=== PATIENT | male | born 1965 | race African-American/Black ===

== ENCOUNTER 2018-04-26 11:31 | Inpatient (IN) | payer OTHER ==
[2018-04-26 11:55] VITALS: BMI 32.8
--- NOTE | 2018-04-26 15:23 | HP ---
CIWA Score Nausea/Vomitin Muscle Tremors: 3 Anxiety: 3 Agitation: 3 Paroxysmal Sweats: 2 Orientation: 0-Oriented Tacttile Disturbances: 0-None Auditory Disturbances: 0-None Visual Disturbances: 0-None Headache: 0-None Present CIWA-Ar Total Score: 13 - Admission Criteria OASAS Guidelines: Admission for Medically Managed Detox: Requires at least one of the followin. CIWA greater than 12 2. Seizures within the past 24 hours 3. Delirium tremens within the past 24 hours 4. Hallucinations within the past 24 hours 5. Acute intervention needed for co occurring medical disorder 6. Acute intervention needed for co occurring psychiatric disorder 7. Severe withdrawal that cannot be handled at a lower level of care (continued vomiting, continued diarrhea, abnormal vital signs) requiring intravenous medication and/or fluids 8. Patient presents the following: CIWA greater than 12 Admission Criteria Met: Admission criteria met Admission [facility] Chief Complaint: "here for detox from alcohol and cocaine" 52 yo with DM and glaucoma, last in detox in [place] 02/2018, went to Rehab for 28 days, left rehab end of Feb. Since discharge has been drinking since then. Alcohol- 6 24oz cans of beer/day, a pint of liquor, last drink this morning, no seizures and DT's Cocaine: $100/day, inhaling THC occ use Lives in long term in [place]. PCP- in [place]. DUR- benzo used for detox last month Utox: THC, cocaine Allergies/Adverse Reactions: Allergies Allergy/AdvReac Type Severity Reaction Status Date / Time No Known Allergies Allergy Verified 04/26/18 14:00 - Ebola screening Have you traveled outside of the country in the last 21 days: No Have you had contact with anyone from an Ebola affected area: No Have you been sick,other than usual withdrawal symptoms: No Do you have a fever: No Patient History - Patient Medical History Hx Anemia: No Hx Asthma: No Hx Chronic Obstructive Pulmonary Disease (COPD): No Hx Cancer: No Hx Cardiac Disorders: No Hx Congestive Heart Failure: No Hx Hypertension: No Hx Hypercholesterolemia: No Hx Pacemaker: No HX Cerebrovascular Accident: No Hx Seizures: No Hx Dementia: No Hx Diabetes: Yes (Type II) Hx Gastrointestinal Disorders: No Hx Liver Disease: No Hx Genitourinary Disorders: No Hx Sexually Transmitted Disorders: No Hx Renal Disease (ESRD): No Hx Thyroid Disease: No Hx Human Immunodeficiency Virus (HIV): No Hx Hepatitis C: No Hx Depression: Yes Hx Suicide Attempt: No Hx Bipolar Disorder: Yes (on abilify 10mg qd) Hx Schizophrenia: No - Patient Surgical History Past Surgical History: Yes Hx Neurologic Surgery: No Hx Cataract Extraction: No Hx Cardiac Surgery: No Hx Lung Surgery: No Hx Breast Surgery: No Hx Breast Biopsy: No Hx Abdominal Surgery: No Hx Appendectomy: No Hx Cholecystectomy: No Hx Genitourinary Surgery: No Hx Section: No Hx Orthopedic Surgery: Yes (R ANKLE-1995, R foot 1994) Anesthesia Reaction: No - PPD History Previous Implant?: Yes Documented Results: Negative w/o proof Implanted On Prior R Admission?: No Date: 06/26/12 - Smoking Cessation Smoking history: Current every day smoker Have you smoked in the past 12 months: Yes Aproximately how many cigarettes per day: 10 Hx Chewing Tobacco Use: No Initiated information on smoking cessation: Yes 'Breaking Loose' booklet given: 04/26/18 - Substance & Tx. History Hx Alcohol Use: Yes Hx Substance Use: Yes Substance Use Type: Cocaine, Marijuana Hx Substance Use Treatment: Yes - Substances Abused Alcohol Route: Oral Frequency: Daily Amount used: 6 20 OZ BEERS Age of first use: 14 Date of Last Use: 04/26/18 Cocaine Route: Inhalation Frequency: Daily Amount used: $50 Age of first use: 19 Date of Last Use: 04/26/18 Marijuana/Hashish Route: Smoking Frequency: 1-3 times last 30 days Amount used: 1 JOINT Age of first use: 19 Date of Last Use: 04/19/18 Family Disease History - Family Disease History Family Disease History: Diabetes: Father, Mother, Heart Disease: Father Admission Physical Exam BHS - Vital Signs Vital Signs: Vital Signs - 24 hr 04/26/18 11:53 Temperature 98.5 F Pulse Rate 90 Respiratory 18 Rate Blood Pressure 137/82 - Physical General Appearance: Yes: Within Normal Limits HEENTM: Yes: Within Normal Limits Respiratory: Yes: Within Normal Limits Neck: Yes: Within Normal Limits Cardiology: Yes: Within Normal Limits, Regular Rhythm, Regular Rate, S1, S2, Murmur, Systolic Murmur Abdominal: Yes: Within Normal Limits Genitourinary: Yes: Within Normal Limits Back: Yes: Within Normal Limits Musculoskeletal: Yes: Within Normal Limits Extremities: Yes: Within Normal Limits Neurological: Yes: Within Normal Limits Integumentary: Yes: Within Normal Limits Lymphatic: Yes: Within Normal Limits - Diagnostic (1) Cannabis use disorder, mild, abuse Current Visit: Yes Status: Acute (2) Alcohol dependence Current Visit: No Status: Active (3) Cocaine dependence Current Visit: No Status: Active (4) DM Diabetes mellitus type 2 Current Visit: No Status: Active (5) Bipolar 1 disorder Current Visit: Yes Status: Acute BHS Breath Alcohol Content Breath Alcohol Content: 0 Urine Drug Screen - Results Drug Screen Negative: No Urine Drug Screen Results: THC-Marijuana, AB-Cocaine
[2018-04-26] MEDS ORDERED: LOPERAMIDE HCL 2 MG CAPSULE PO PRN (15:28)
[2018-04-26] MEDS ORDERED: P-EPHED 60MG/TRIPROLIDI 2.5MG TABLET PO PRN (15:28)
[2018-04-26] MEDS ORDERED: MAGNESIUM CITRATE 300 ML BOTTLE PO PRN (15:28)
[2018-04-26] MEDS ORDERED: MAG HYDROX/AL HYDROX/SIMETH 30 ML UNIT-DOSE CUP PO PRN (15:28)
[2018-04-26] MEDS ORDERED: IBUPROFEN 400 MG TABLET (FP) PO PRN (15:28)
[2018-04-26] MEDS ORDERED: MAGNESIUM HYDROX 2400MG/30ML ORAL SUSPENSION 30 ML CUP PO PRN (15:28)
[2018-04-26] MEDS ORDERED: MENTHOL/PHENOL 1 EACH UD MM PRN (15:28)
[2018-04-26] MEDS ORDERED: guaiFENesin/D-METHORPHAN HB 10 ML UNIT-DOSE CUPS PO PRN (15:28)
[2018-04-26] MEDS ORDERED: chlordiazePOXIDE HCL 25 MG CAPSULE PO PRN (15:30)
[2018-04-26] MEDS: metFORMIN HCL 500 MG TABLET (FP) PO SCH (17:01)
[2018-04-26] MEDS: chlordiazePOXIDE 5 MG CAPSULE PO SCH ×2 (17:01→22:12)
[2018-04-26] MEDS: TIMOLOL 0.5% OPHTHALMIC SOL 5 ML BOTTLE OD SCH (17:41)
[2018-04-26] MEDS: MELATONIN 5 MG TABLETS PO PRN (22:12)
[2018-04-26] MEDS: THIAMINE HCL 100 MG TABLET (FP) PO SCH (22:12)
[2018-04-26] MEDS: LATANOPROST 0.005% OPHTH SOLN 2.5ML BOTTLE OU SCH (22:13)
[2018-04-27] MEDS: chlordiazePOXIDE 5 MG CAPSULE PO SCH ×4 (05:33→22:13)
[2018-04-27] MEDS: metFORMIN HCL 500 MG TABLET (FP) PO SCH ×2 (06:26→17:01)
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
[2018-04-27] MEDS: PRENATAL VITAMINS W/ FOLIC ACID TABLET (FP) PO SCH (10:03)
[2018-04-27] MEDS: TIMOLOL 0.5% OPHTHALMIC SOL 5 ML BOTTLE OD SCH (10:03)
[2018-04-27 10:58] LABS: HEMATOCRIT 40.1 % (35.4-49); HEMOGLOBIN 13.8 GM/dL (11.7-16.9); MCH 30.6 pg (25.7-33.7); MCHC 34.4 g/dl (32.0-35.9); MEAN CELL VOLUME 89.1 fl (80-96); MEAN PLT VOLUME 9.3 fl (7.5-11.1); PLATELET COUNT 255 K/MM3 (134-434); RDW 13.4 % (11.9-15.9); WHITE BLOOD COUNT 4.4 K/mm3 (4.0-10.0)
[2018-04-27 11:16] LABS: ALK PHOS 108 U/L (45-117); ANION GAP 12 MMOL/L (8-16); BILIRUBIN,TOTAL 0.4 mg/dL (0.2-1); BLOOD UREA NITROGEN 8 mg/dL (7-18); CALCIUM 9.6 mg/dL (8.5-10.1); CHLORIDE 102 mmol/L (98-107); CO2 24 mmol/L (21-32); GLUCOSE,RANDOM 259 mg/dL (74-106); POTASSIUM 3.5 mmol/L (3.5-5.1); SGOT/AST 8 U/L (15-37); SGPT/ALT 15 U/L (13-61); SODIUM 139 mmol/L (136-145); TOT PROT 7.3 g/dl (6.4-8.2)
--- NOTE | 2018-04-27 11:16 | PN ---
S CIWA - CIWA Score Nausea/Vomitin-Mild Nausea/No Vomiting Muscle Tremors: 3 Anxiety: 3 Agitation: 4-Moderately Restless Paroxysmal Sweats: 1-Minimal Palms Moist Orientation: 1-Uncertain about Date Tacttile Disturbances: 0-None Auditory Disturbances: 0-None Visual Disturbances: 0-None Headache: 2-Mild CIWA-Ar Total Score: 15 BHS Progress Note (SOAP) Subjective: tremor restlessness anxiety sweating Objective: 04/27/18 11:15 Vital Signs Temperature 97.1 F L 04/27/18 09:09 Pulse Rate 84 04/27/18 09:09 Respiratory Rate 18 04/27/18 09:09 Blood Pressure 128/87 04/27/18 09:09 O2 Sat by Pulse Oximetry (%) Laboratory Last Values WBC 4.4 K/mm3 (4.0-10.0) 04/27/18 05:45 RBC 4.50 M/mm3 (4.00-5.60) 04/27/18 05:45 Hgb 13.8 GM/dL (11.7-16.9) 04/27/18 05:45 Hct 40.1 % (35.4-49) 04/27/18 05:45 MCV 89.1 fl (80-96) 04/27/18 05:45 MCH 30.6 pg (25.7-33.7) 04/27/18 05:45 MCHC 34.4 g/dl (32.0-35.9) 04/27/18 05:45 RDW 13.4 % (11.9-15.9) 04/27/18 05:45 Plt Count 255 K/MM3 (134-434) 04/27/18 05:45 MPV 9.3 fl (7.5-11.1) 04/27/18 05:45 POC Glucometer 195 UNITS (80-120) 04/27/18 05:32 lab noted Assessment: 04/27/18 11:16 withdrawal sx Plan: continue detox
[2018-04-27 12:27] LABS: URINE APPEARANCE SLCLOUDY; URINE BILIRUBIN NEGATIVE (<2.0 mg/dL); URINE COLOR YELLOW; URINE GLUCOSE (UA) 2+ (NEGATIVE); URINE KETONE NEGATIVE (NEGATIVE); URINE LEUK ESTERASE NEGATIVE (NEGATIVE); URINE NITRITE NEGATIVE (NEGATIVE); URINE PROTEIN 1+ (NEGATIVE); URINE UROBILINOGEN NEGATIVE mg/dL (0.2-1.0)
[2018-04-27 12:34] LABS: EPI CELLS RARE /HPF (FEW); URINE MUCUS RARE
[2018-04-27] MEDS: traZODone HCL 100 MG TABLET (FP) PO SCH (22:13)
[2018-04-27] MEDS: THIAMINE HCL 100 MG TABLET (FP) PO SCH (22:13)
[2018-04-27] MEDS: LATANOPROST 0.005% OPHTH SOLN 2.5ML BOTTLE OU SCH (22:13)
[2018-04-28] MEDS: chlordiazePOXIDE 5 MG CAPSULE PO SCH ×4 (05:25→22:04)
[2018-04-28] MEDS: metFORMIN HCL 500 MG TABLET (FP) PO SCH ×2 (07:58→16:59)
--- NOTE | 2018-04-28 09:41 | PN ---
S CIWA - CIWA Score Nausea/Vomitin-Mild Nausea/No Vomiting Muscle Tremors: 3 Anxiety: 3 Agitation: 2 Paroxysmal Sweats: 1-Minimal Palms Moist Orientation: 0-Oriented Tacttile Disturbances: 0-None Auditory Disturbances: 0-None Visual Disturbances: 0-None Headache: 2-Mild CIWA-Ar Total Score: 12 BHS Progress Note (SOAP) Subjective: tremor sweating otherwise doing ok Objective: 04/28/18 09:41 Vital Signs Temperature 97.9 F 04/28/18 09:25 Pulse Rate 88 04/28/18 09:25 Respiratory Rate 18 04/28/18 09:25 Blood Pressure 118/73 04/28/18 09:25 O2 Sat by Pulse Oximetry (%) Laboratory Last Values WBC 4.4 K/mm3 (4.0-10.0) 04/27/18 05:45 RBC 4.50 M/mm3 (4.00-5.60) 04/27/18 05:45 Hgb 13.8 GM/dL (11.7-16.9) 04/27/18 05:45 Hct 40.1 % (35.4-49) 04/27/18 05:45 MCV 89.1 fl (80-96) 04/27/18 05:45 MCH 30.6 pg (25.7-33.7) 04/27/18 05:45 MCHC 34.4 g/dl (32.0-35.9) 04/27/18 05:45 RDW 13.4 % (11.9-15.9) 04/27/18 05:45 Plt Count 255 K/MM3 (134-434) 04/27/18 05:45 MPV 9.3 fl (7.5-11.1) 04/27/18 05:45 Sodium 139 mmol/L (136-145) 04/27/18 05:45 Potassium 3.5 mmol/L (3.5-5.1) 04/27/18 05:45 Chloride 102 mmol/L (98-107) 04/27/18 05:45 Carbon Dioxide 24 mmol/L (21-32) 04/27/18 05:45 Anion Gap 12 MMOL/L (8-16) 04/27/18 05:45 BUN 8 mg/dL (7-18) 04/27/18 05:45 Creatinine 1.0 mg/dL (0.55-1.3) 04/27/18 05:45 Creat Clearance w eGFR > 60 (>60) 04/27/18 05:45 POC Glucometer 166 UNITS (80-120) 04/28/18 05:25 Random Glucose 259 mg/dL (74-106) H 04/27/18 05:45 Calcium 9.6 mg/dL (8.5-10.1) 04/27/18 05:45 Total Bilirubin 0.4 mg/dL (0.2-1) 04/27/18 05:45 AST 8 U/L (15-37) L 04/27/18 05:45 ALT 15 U/L (13-61) 04/27/18 05:45 Alkaline Phosphatase 108 U/L (45-117) 04/27/18 05:45 Total Protein 7.3 g/dl (6.4-8.2) 04/27/18 05:45 Albumin 4.0 g/dl (3.4-5.0) 04/27/18 05:45 Urine Color Yellow 04/27/18 08:00 Urine Appearance Slcloudy 04/27/18 08:00 Urine pH 5.0 (5.0-8.0) 04/27/18 08:00 Ur Specific [place] 1.019 (1.010-1.035) 04/27/18 08:00 Urine Protein 1+ (NEGATIVE) H 04/27/18 08:00 Urine Glucose (UA) 2+ (NEGATIVE) H 04/27/18 08:00 Urine Ketones Negative (NEGATIVE) 04/27/18 08:00 Urine Blood Negative (NEGATIVE) 04/27/18 08:00 Urine Nitrite Negative (NEGATIVE) 04/27/18 08:00 Urine Bilirubin Negative (<2.0 mg/dL) 04/27/18 08:00 Urine Urobilinogen Negative mg/dL (0.2-1.0) 04/27/18 08:00 Ur Leukocyte Esterase Negative (NEGATIVE) 04/27/18 08:00 Urine WBC (Auto) 2 /hpf (3-5) 04/27/18 08:00 Urine RBC (Auto) 1 /hpf (0-3) 04/27/18 08:00 Ur Epithelial Cells Rare /HPF (FEW) 04/27/18 08:00 Urine Mucus Rare 04/27/18 08:00 RPR Titer Nonreactive (NONREACTIVE) 04/27/18 05:45 lab noted Assessment: 04/28/18 09:41 withdrawal sx Plan: continue detox
[2018-04-28] MEDS: PRENATAL VITAMINS W/ FOLIC ACID TABLET (FP) PO SCH (10:16)
[2018-04-28] MEDS: TIMOLOL 0.5% OPHTHALMIC SOL 5 ML BOTTLE OD SCH (10:16)
[2018-04-28] MEDS: LATANOPROST 0.005% OPHTH SOLN 2.5ML BOTTLE OU SCH (22:04)
[2018-04-28] MEDS: traZODone HCL 100 MG TABLET (FP) PO SCH (22:04)
[2018-04-28] MEDS: THIAMINE HCL 100 MG TABLET (FP) PO SCH (22:04)
[2018-04-29] MEDS: chlordiazePOXIDE 5 MG CAPSULE PO SCH ×4 (05:48→22:06)
[2018-04-29] MEDS: metFORMIN HCL 500 MG TABLET (FP) PO SCH ×2 (06:24→17:35)
--- NOTE | 2018-04-29 10:07 | PN ---
BHS Progress Note (SOAP) Subjective: feeling better less sweating mild tremor sleep better at night Objective: 04/29/18 10:06 Vital Signs Temperature 98.2 F 04/29/18 09:16 Pulse Rate 91 H 04/29/18 09:16 Respiratory Rate 20 04/29/18 09:16 Blood Pressure 100/60 04/29/18 09:16 O2 Sat by Pulse Oximetry (%) Laboratory Last Values WBC 4.4 K/mm3 (4.0-10.0) 04/27/18 05:45 RBC 4.50 M/mm3 (4.00-5.60) 04/27/18 05:45 Hgb 13.8 GM/dL (11.7-16.9) 04/27/18 05:45 Hct 40.1 % (35.4-49) 04/27/18 05:45 MCV 89.1 fl (80-96) 04/27/18 05:45 MCH 30.6 pg (25.7-33.7) 04/27/18 05:45 MCHC 34.4 g/dl (32.0-35.9) 04/27/18 05:45 RDW 13.4 % (11.9-15.9) 04/27/18 05:45 Plt Count 255 K/MM3 (134-434) 04/27/18 05:45 MPV 9.3 fl (7.5-11.1) 04/27/18 05:45 Sodium 139 mmol/L (136-145) 04/27/18 05:45 Potassium 3.5 mmol/L (3.5-5.1) 04/27/18 05:45 Chloride 102 mmol/L (98-107) 04/27/18 05:45 Carbon Dioxide 24 mmol/L (21-32) 04/27/18 05:45 Anion Gap 12 MMOL/L (8-16) 04/27/18 05:45 BUN 8 mg/dL (7-18) 04/27/18 05:45 Creatinine 1.0 mg/dL (0.55-1.3) 04/27/18 05:45 Creat Clearance w eGFR > 60 (>60) 04/27/18 05:45 POC Glucometer 249 UNITS (80-120) 04/29/18 05:47 Random Glucose 259 mg/dL (74-106) H 04/27/18 05:45 Calcium 9.6 mg/dL (8.5-10.1) 04/27/18 05:45 Total Bilirubin 0.4 mg/dL (0.2-1) 04/27/18 05:45 AST 8 U/L (15-37) L 04/27/18 05:45 ALT 15 U/L (13-61) 04/27/18 05:45 Alkaline Phosphatase 108 U/L (45-117) 04/27/18 05:45 Total Protein 7.3 g/dl (6.4-8.2) 04/27/18 05:45 Albumin 4.0 g/dl (3.4-5.0) 04/27/18 05:45 Urine Color Yellow 04/27/18 08:00 Urine Appearance Slcloudy 04/27/18 08:00 Urine pH 5.0 (5.0-8.0) 04/27/18 08:00 Ur Specific [place] 1.019 (1.010-1.035) 04/27/18 08:00 Urine Protein 1+ (NEGATIVE) H 04/27/18 08:00 Urine Glucose (UA) 2+ (NEGATIVE) H 04/27/18 08:00 Urine Ketones Negative (NEGATIVE) 04/27/18 08:00 Urine Blood Negative (NEGATIVE) 04/27/18 08:00 Urine Nitrite Negative (NEGATIVE) 04/27/18 08:00 Urine Bilirubin Negative (<2.0 mg/dL) 04/27/18 08:00 Urine Urobilinogen Negative mg/dL (0.2-1.0) 04/27/18 08:00 Ur Leukocyte Esterase Negative (NEGATIVE) 04/27/18 08:00 Urine WBC (Auto) 2 /hpf (3-5) 04/27/18 08:00 Urine RBC (Auto) 1 /hpf (0-3) 04/27/18 08:00 Ur Epithelial Cells Rare /HPF (FEW) 04/27/18 08:00 Urine Mucus Rare 04/27/18 08:00 RPR Titer Nonreactive (NONREACTIVE) 04/27/18 05:45 lab noted Assessment: 04/29/18 10:06 mild withdrawal sx 04/29/18 10:06 glaucoma 04/29/18 10:07 Plan: continue detox
[2018-04-29] MEDS: TIMOLOL 0.5% OPHTHALMIC SOL 5 ML BOTTLE OD SCH (10:21)
[2018-04-29] MEDS: PRENATAL VITAMINS W/ FOLIC ACID TABLET (FP) PO SCH (10:21)
[2018-04-29] MEDS: THIAMINE HCL 100 MG TABLET (FP) PO SCH (22:06)
[2018-04-29] MEDS: LATANOPROST 0.005% OPHTH SOLN 2.5ML BOTTLE OU SCH (22:06)
[2018-04-29] MEDS: traZODone HCL 100 MG TABLET (FP) PO SCH (22:06)
[2018-04-30] MEDS: chlordiazePOXIDE 5 MG CAPSULE PO SCH ×2 (05:19→10:06)
[2018-04-30] MEDS: metFORMIN HCL 500 MG TABLET (FP) PO SCH ×2 (08:03→17:01)
--- NOTE | 2018-04-30 09:55 | PN ---
BHS Progress Note (SOAP) Subjective: I feel better Objective: 04/30/18 09:53 Vital Signs Temperature 98.3 F 04/30/18 09:17 Pulse Rate 80 04/30/18 09:17 Respiratory Rate 18 04/30/18 09:17 Blood Pressure 108/68 04/30/18 09:17 O2 Sat by Pulse Oximetry (%) Laboratory Tests 04/26/18 04/27/18 04/27/18 16:49 05:32 05:45 WBC 4.4 RBC 4.50 Hgb 13.8 Hct 40.1 MCV 89.1 MCH 30.6 MCHC 34.4 RDW 13.4 Plt Count 255 MPV 9.3 Sodium Potassium Chloride Carbon Dioxide Anion Gap BUN Creatinine Creat Clearance w eGFR POC Glucometer 290 195 Random Glucose Calcium Total Bilirubin AST ALT Alkaline Phosphatase Total Protein Albumin Urine Color Urine Appearance Urine pH Ur Specific [place] Urine Protein Urine Glucose (UA) Urine Ketones Urine Blood Urine Nitrite Urine Bilirubin Urine Urobilinogen Ur Leukocyte Esterase Urine WBC (Auto) Urine RBC (Auto) Ur Epithelial Cells Urine Mucus RPR Titer 04/27/18 04/27/18 04/27/18 05:45 05:45 08:00 WBC RBC Hgb Hct MCV MCH MCHC RDW Plt Count MPV Sodium 139 Potassium 3.5 Chloride 102 Carbon Dioxide 24 Anion Gap 12 BUN 8 Creatinine 1.0 Creat Clearance w eGFR > 60 POC Glucometer Random Glucose 259 H Calcium 9.6 Total Bilirubin 0.4 AST 8 L ALT 15 Alkaline Phosphatase 108 Total Protein 7.3 Albumin 4.0 Urine Color Yellow Urine Appearance Slcloudy Urine pH 5.0 Ur Specific [place] 1.019 Urine Protein 1+ H Urine Glucose (UA) 2+ H Urine Ketones Negative Urine Blood Negative Urine Nitrite Negative Urine Bilirubin Negative Urine Urobilinogen Negative Ur Leukocyte Esterase Negative Urine WBC (Auto) 2 Urine RBC (Auto) 1 Ur Epithelial Cells Rare Urine Mucus Rare RPR Titer Nonreactive 04/27/18 04/28/18 04/28/18 16:30 05:25 16:19 WBC RBC Hgb Hct MCV MCH MCHC RDW Plt Count MPV Sodium Potassium Chloride Carbon Dioxide Anion Gap BUN Creatinine Creat Clearance w eGFR POC Glucometer 230 166 237 Random Glucose Calcium Total Bilirubin AST ALT Alkaline Phosphatase Total Protein Albumin Urine Color Urine Appearance Urine pH Ur Specific [place] Urine Protein Urine Glucose (UA) Urine Ketones Urine Blood Urine Nitrite Urine Bilirubin Urine Urobilinogen Ur Leukocyte Esterase Urine WBC (Auto) Urine RBC (Auto) Ur Epithelial Cells Urine Mucus RPR Titer 04/29/18 04/29/18 04/30/18 05:47 16:30 05:19 WBC RBC Hgb Hct MCV MCH MCHC RDW Plt Count MPV Sodium Potassium Chloride Carbon Dioxide Anion Gap BUN Creatinine Creat Clearance w eGFR POC Glucometer 249 205 142 Random Glucose Calcium Total Bilirubin AST ALT Alkaline Phosphatase Total Protein Albumin Urine Color Urine Appearance Urine pH Ur Specific [place] Urine Protein Urine Glucose (UA) Urine Ketones Urine Blood Urine Nitrite Urine Bilirubin Urine Urobilinogen Ur Leukocyte Esterase Urine WBC (Auto) Urine RBC (Auto) Ur Epithelial Cells Urine Mucus RPR Titer pt aox3 in nad Assessment: 04/30/18 09:54 detox completed Plan: d/c to rehab
--- NOTE | 2018-04-30 10:00 | DS ---
[facility] Detox Discharge Summary Admission Date: 04/26/18 - Physical Exam Results Vital Signs: Vital Signs Temperature 98.3 F 04/30/18 09:17 Pulse Rate 80 04/30/18 09:17 Respiratory Rate 18 04/30/18 09:17 Blood Pressure 108/68 04/30/18 09:17 O2 Sat by Pulse Oximetry (%) - Medication Discharge Medications: Ambulatory Orders Latanoprost 0.005% Eye Drops [Xalatan 0.005% Eye Drops -] 1 drop OU HS #1 drops 04/29/18 Metformin HCl [Glucophage] 500 mg PO BID #30 tablet 04/29/18 Timolol 0.5% [Timoptic 0.5%] 1 drop OD DAILY #1 drops 04/29/18 - Diagnosis (1) Alcohol dependence with uncomplicated withdrawal Current Visit: Yes Status: Chronic (2) Bipolar 1 disorder Current Visit: Yes Status: Chronic (3) Cannabis use disorder, mild, abuse Current Visit: Yes Status: Chronic (4) Glaucoma Current Visit: Yes Status: Chronic (5) Nicotine dependence Current Visit: Yes Status: Chronic (6) Alcohol dependence Current Visit: Yes Status: Chronic (7) Cocaine dependence Current Visit: No Status: Chronic
--- NOTE | 2018-04-30 10:03 | HP ---
[facility] Rehab Assess/Revision - Admission History Admitted to Rehab from: [facility] Date of Admission to Rehab: 04/30/2018 - Vital signs Vital Signs: Vital Signs Period Temp Pulse Resp BP Sys/Godinez Pulse Ox Last 24 Hr 97.4 F-98.9 F 78-89 18-18 108-125/68-85 - Findings Detox History & Physical reviewed: Yes Concur with findings: Yes
--- NOTE | 2018-04-30 10:04 | HP ---
[facility] Rehab Assess/Revision - Vital signs Vital Signs: Vital Signs Period Temp Pulse Resp BP Sys/Godinez Pulse Ox Last 24 Hr 97.4 F-98.9 F 78-89 18-18 108-125/68-85 Inpatient Rehab Admission - Initial Determination Are CD services needed?: No Free of communicable disease: Yes Not in need of hospitalization: Yes - Rehab Admission Criteria Previous failed treatment: Yes Poor recovery environment: Yes Comorbidities: Yes Lacks judgement: No Patient is meeting Inpatient Rehab admission criteria:: No
[2018-04-30] MEDS: TIMOLOL 0.5% OPHTHALMIC SOL 5 ML BOTTLE OD SCH (10:06)
[2018-04-30] MEDS: ACETAMINOPHEN 325 MG TABLET (FP) PO PRN (10:06)
[2018-04-30] MEDS: PRENATAL VITAMINS W/ FOLIC ACID TABLET (FP) PO SCH (10:06)
[2018-04-30] MEDS: traZODone HCL 100 MG TABLET (FP) PO SCH (21:49)
[2018-04-30] MEDS: THIAMINE HCL 100 MG TABLET (FP) PO SCH (21:49)
[2018-04-30] MEDS: LATANOPROST 0.005% OPHTH SOLN 2.5ML BOTTLE OU SCH (21:50)
[2018-05-01] MEDS: metFORMIN HCL 500 MG TABLET (FP) PO SCH ×2 (06:33→16:48)
[2018-05-01] MEDS: PRENATAL VITAMINS W/ FOLIC ACID TABLET (FP) PO SCH (10:22)
[2018-05-01] MEDS: TIMOLOL 0.5% OPHTHALMIC SOL 5 ML BOTTLE OD SCH (10:22)
[2018-05-01] MEDS ORDERED: INSULIN (NOVOLOG) ASPART 100 UNITS/ML 10ML VIAL ONE (16:33)
[2018-05-01] MEDS: traZODone HCL 100 MG TABLET (FP) PO SCH (21:50)
[2018-05-01] MEDS: THIAMINE HCL 100 MG TABLET (FP) PO SCH (21:50)
[2018-05-01] MEDS: LATANOPROST 0.005% OPHTH SOLN 2.5ML BOTTLE OU SCH (21:50)
[2018-05-02] MEDS: metFORMIN HCL 500 MG TABLET (FP) PO SCH ×2 (07:07→16:51)
[2018-05-02] MEDS: PRENATAL VITAMINS W/ FOLIC ACID TABLET (FP) PO SCH (10:08)
[2018-05-02] MEDS: TIMOLOL 0.5% OPHTHALMIC SOL 5 ML BOTTLE OD SCH (10:09)
[2018-05-02] MEDS: traZODone HCL 100 MG TABLET (FP) PO SCH (21:37)
[2018-05-02] MEDS: THIAMINE HCL 100 MG TABLET (FP) PO SCH (21:37)
[2018-05-02] MEDS: LATANOPROST 0.005% OPHTH SOLN 2.5ML BOTTLE OU SCH (21:38)
[2018-05-03] MEDS: metFORMIN HCL 500 MG TABLET (FP) PO SCH ×2 (06:28→16:51)
[2018-05-03] MEDS: PRENATAL VITAMINS W/ FOLIC ACID TABLET (FP) PO SCH (09:56)
[2018-05-03] MEDS: TIMOLOL 0.5% OPHTHALMIC SOL 5 ML BOTTLE OD SCH (09:57)
--- NOTE | 2018-05-03 11:03 | PN ---
[facility] Progress Note Note: PATIENT REPORTS TAKING METFORMIN 1000MG BID. PATIENT CURRENTLY RECEIVING 500MG BID. PREFERRED PHARMACY CALLED AT [phone] AND STATES PATIENT DOES HAVE RECORD OF 1000MG BID BUT PATIENT HAS NOT FILLED MEDICATION IN OVER ONE YEAR. BLOOD SUGAR RANGE 142-270. WILL CHECK BMP TO ASSESS RENAL FUNCTION AGAIN PRIOR TO INCREASING MEDICATION. Vital Signs Temperature 98.3 F 05/03/18 07:02 Pulse Rate 89 05/03/18 07:02 Respiratory Rate 05/03/18 07:02 Blood Pressure 114/71 05/03/18 07:02 O2 Sat by Pulse Oximetry (%) Laboratory Tests 04/26/18 04/27/18 04/27/18 16:49 05:32 05:45 WBC 4.4 RBC 4.50 Hgb 13.8 Hct 40.1 MCV 89.1 MCH 30.6 MCHC 34.4 RDW 13.4 Plt Count 255 MPV 9.3 Sodium Potassium Chloride Carbon Dioxide Anion Gap BUN Creatinine Creat Clearance w eGFR POC Glucometer 290 195 Random Glucose Calcium Total Bilirubin AST ALT Alkaline Phosphatase Total Protein Albumin Urine Color Urine Appearance Urine pH Ur Specific [place] Urine Protein Urine Glucose (UA) Urine Ketones Urine Blood Urine Nitrite Urine Bilirubin Urine Urobilinogen Ur Leukocyte Esterase Urine WBC (Auto) Urine RBC (Auto) Ur Epithelial Cells Urine Mucus RPR Titer 04/27/18 04/27/18 04/27/18 05:45 05:45 08:00 WBC RBC Hgb Hct MCV MCH MCHC RDW Plt Count MPV Sodium 139 Potassium 3.5 Chloride 102 Carbon Dioxide 24 Anion Gap 12 BUN 8 Creatinine 1.0 Creat Clearance w eGFR > 60 POC Glucometer Random Glucose 259 H Calcium 9.6 Total Bilirubin 0.4 AST 8 L ALT 15 Alkaline Phosphatase 108 Total Protein 7.3 Albumin 4.0 Urine Color Yellow Urine Appearance Slcloudy Urine pH 5.0 Ur Specific [place] 1.019 Urine Protein 1+ H Urine Glucose (UA) 2+ H Urine Ketones Negative Urine Blood Negative Urine Nitrite Negative Urine Bilirubin Negative Urine Urobilinogen Negative Ur Leukocyte Esterase Negative Urine WBC (Auto) 2 Urine RBC (Auto) 1 Ur Epithelial Cells Rare Urine Mucus Rare RPR Titer Nonreactive 04/27/18 04/28/18 04/28/18 16:30 05:25 16:19 WBC RBC Hgb Hct MCV MCH MCHC RDW Plt Count MPV Sodium Potassium Chloride Carbon Dioxide Anion Gap BUN Creatinine Creat Clearance w eGFR POC Glucometer 230 166 237 Random Glucose Calcium Total Bilirubin AST ALT Alkaline Phosphatase Total Protein Albumin Urine Color Urine Appearance Urine pH Ur Specific [place] Urine Protein Urine Glucose (UA) Urine Ketones Urine Blood Urine Nitrite Urine Bilirubin Urine Urobilinogen Ur Leukocyte Esterase Urine WBC (Auto) Urine RBC (Auto) Ur Epithelial Cells Urine Mucus RPR Titer 04/29/18 04/29/18 04/30/18 05:47 16:30 05:19 WBC RBC Hgb Hct MCV MCH MCHC RDW Plt Count MPV Sodium Potassium Chloride Carbon Dioxide Anion Gap BUN Creatinine Creat Clearance w eGFR POC Glucometer 249 205 142 Random Glucose Calcium Total Bilirubin AST ALT Alkaline Phosphatase Total Protein Albumin Urine Color Urine Appearance Urine pH Ur Specific [place] Urine Protein Urine Glucose (UA) Urine Ketones Urine Blood Urine Nitrite Urine Bilirubin Urine Urobilinogen Ur Leukocyte Esterase Urine WBC (Auto) Urine RBC (Auto) Ur Epithelial Cells Urine Mucus RPR Titer 04/30/18 05/01/18 05/01/18 17:00 05:51 16:47 WBC RBC Hgb Hct MCV MCH MCHC RDW Plt Count MPV Sodium Potassium Chloride Carbon Dioxide Anion Gap BUN Creatinine Creat Clearance w eGFR POC Glucometer 169 208 248 Random Glucose Calcium Total Bilirubin AST ALT Alkaline Phosphatase Total Protein Albumin Urine Color Urine Appearance Urine pH Ur Specific [place] Urine Protein Urine Glucose (UA) Urine Ketones Urine Blood Urine Nitrite Urine Bilirubin Urine Urobilinogen Ur Leukocyte Esterase Urine WBC (Auto) Urine RBC (Auto) Ur Epithelial Cells Urine Mucus RPR Titer 05/02/18 05/02/18 05/03/18 05:57 16:50 06:28 WBC RBC Hgb Hct MCV MCH MCHC RDW Plt Count MPV Sodium Potassium Chloride Carbon Dioxide Anion Gap BUN Creatinine Creat Clearance w eGFR POC Glucometer 162 215 270 Random Glucose Calcium Total Bilirubin AST ALT Alkaline Phosphatase Total Protein Albumin Urine Color Urine Appearance Urine pH Ur Specific [place] Urine Protein Urine Glucose (UA) Urine Ketones Urine Blood Urine Nitrite Urine Bilirubin Urine Urobilinogen Ur Leukocyte Esterase Urine WBC (Auto) Urine RBC (Auto) Ur Epithelial Cells Urine Mucus RPR Titer
--- NOTE | 2018-05-03 18:13 | CONSULT ---
[facility] Psychiatric Consult - Data Date of interview: 05/03/18 Admission source: [facility] Identifying data: Second admission to [facility] for this 52 y/o AA male who completed detoxification at [address] [place] [address] and got transferred to [address] for consolidation of sobriety and management of co-morbidities (alcohol/cocaine dependence + nicotine/cannabis dependence + bipolar disorder). Patient is single , a father of one, homeless (resides in detention), unemployed and supported on [facility] benefits. Substance Abuse History: Discussed with the patient in this interview. Details in current [facility] report as follows : Smoking history: Current every day smoker. Have you smoked in the past 12 months: Yes. Aproximately how many cigarettes per day: 10. Hx Chewing Tobacco Use: No. Initiated information on smoking cessation: Yes. 'Breaking Loose' booklet given: 04/26/18. - Substance & Tx. History. Hx Alcohol Use: Yes. Hx Substance Use: Yes. Substance Use Type: Cocaine, Marijuana. Hx Substance Use Treatment: Yes. - Substances Abused. Alcohol. Route: Oral. Frequency: Daily. Amount used: 6 20 OZ BEERS. Age of first use: 14. Date of Last Use: 04/26/18. Cocaine. Route: Inhalation. Frequency: Daily. Amount used: $50. Age of first use: 19. Date of Last Use: 04/26/18. Marijuana/Hashish. Route: Smoking. Frequency: 1-3 times last 30 days. Amount used: 1 JOINT. Age of first use: 19. Date of Last Use: 04/19/18 Medical History: Diabetes mellitus, glaucoma and a history of orthosurgery ( fractures of right ankle + right foot in 1994). Psychiatric History: Patient endorses a history of multiple psychiatric hospitalizations ([facility], [facility], [facility]3] in [place], [place]). Most recent psychiatric admission occurred at [facility]3] in November 2017.Mr Gaetano Alvarado states that he has been diagnosed with Bipolar Disorder, ADHD and Anxiety Disorder. He indicates past maintenance on psychotropic medications but, with the exception of aripriprazole and trazodone , the patient has no recollection of their names. A telephone call to [facility] ([phone]) confirms past refills for adderall, percocet, lyrica, lamictal and trazodone. NO pharmacy activity for more than a year. Indeed, the patient validates the pharmacist's report that he last picked up scripts at [facility] more than 12 months ago. " I have not been there for quite a while, certainly more than a year ". Admits to chronic non-adherence to [facility]PD care + medications and history of two suicide attempts (self-mutilation and deliberate jump onto the path of an oncoming train). Physical/Sexual Abuse/Trauma History: Not discussed in this session. Patient declines. Additional Comment: Urine Drug Screen Results: THC-Marijuana, AB-Cocaine. Noted. Mental Status Exam - Mental Status Exam Alert and Oriented to: Time, Place, Person Cognitive Function: Good Patient Appearance: Well Groomed Mood: Angry (at beginning of interview but patient gradually calmed down ; cooperative after 5-10 minutes of conversation with gag writer), Irritable Affect: Appropriate, Normal Range Patient Behavior: Talkative, Appropriate (receptive to teaching ; apologetic for his initial angry outbursts), Cooperative Speech Pattern: Clear, Appropriate Voice Loudness: Normal Thought Process: Goal Oriented Thought Disorder: Not Present Hallucinations: Denies Suicidal Ideation: Denies Homicidal Ideation: Denies Insight/Judgement: Poor Sleep: Poorly, Difficulty falling asleep Appetite: Good Muscle strength/Tone: Normal Gait/Station: Normal Psychiatric Findings - Problem List (Hardy 1, 2,3) (1) Alcohol dependence Current Visit: Yes Status: Chronic (2) Cocaine dependence Current Visit: Yes Status: Chronic (3) Nicotine dependence Current Visit: Yes Status: Chronic (4) Cannabis abuse Current Visit: Yes Status: Chronic (5) Substance induced mood disorder Current Visit: Yes Status: Chronic (6) Bipolar disorder Current Visit: Yes Status: Chronic (7) Insomnia Current Visit: Yes Status: Chronic (8) Non-compliant patient Current Visit: Yes Status: Chronic - Initial Treatment Plan Initial Treatment Plan: Psychoeducation. Sleep hygiene. AA meetings. Support. Motivational sessions for abstinence. Strategies for relapse prevention : to be revisited with the patient throughout this hospital course. Mr Gaetano Alvarado has expresssed the wish to resume care with mood stabilizers and he has specifically chosen the option of aripriprazole. Side effects/benefits of trazodone + abilify are discussed with patient. Risk of cardiovascular adverse events and priapism were discussed. Advised to alert MD/RN in case of prolonged + painful erection. Ordered : trazodone 100 mg po hs + abilify 5 mg po daily ( subject to titration as clinically indicated). Patient agrees to this plan of care. Consent (verbal) granted to MD. Observation.
[2018-05-03] MEDS: traZODone HCL 100 MG TABLET (FP) PO SCH (21:14)
[2018-05-03] MEDS: THIAMINE HCL 100 MG TABLET (FP) PO SCH (21:14)
[2018-05-03] MEDS: LATANOPROST 0.005% OPHTH SOLN 2.5ML BOTTLE OU SCH (21:15)
[2018-05-04] MEDS: metFORMIN HCL 500 MG TABLET (FP) PO SCH ×2 (06:05→16:50)
[2018-05-04] MEDS: PRENATAL VITAMINS W/ FOLIC ACID TABLET (FP) PO SCH (09:46)
[2018-05-04] MEDS: ARIPiprazole 5 MG TABLET (FP) PO SCH (09:46)
[2018-05-04] MEDS: TIMOLOL 0.5% OPHTHALMIC SOL 5 ML BOTTLE OD SCH (09:48)
[2018-05-04] MEDS ORDERED: PT OWN MED DRAWER 7, Y5N ONE (09:48)
[2018-05-04 12:32] LABS: ANION GAP 8 MMOL/L (8-16); BLOOD UREA NITROGEN 11 mg/dL (7-18); CALCIUM 8.4 mg/dL (8.5-10.1); CHLORIDE 99 mmol/L (98-107); CO2 30 mmol/L (21-32); CREATININE 0.9 mg/dL (0.55-1.3); GLUCOSE,RANDOM 286 mg/dL (74-106); POTASSIUM 3.6 mmol/L (3.5-5.1); SODIUM 137 mmol/L (136-145)
--- NOTE | 2018-05-04 14:56 | PN ---
[facility] Progress Note Note: Vital Signs Temperature 98.0 F 05/04/18 07:22 Pulse Rate 85 05/04/18 07:22 Respiratory Rate 18 05/04/18 07:22 Blood Pressure 115/75 05/04/18 07:22 O2 Sat by Pulse Oximetry (%) Laboratory Tests 04/26/18 04/27/18 04/27/18 16:49 05:32 05:45 WBC 4.4 RBC 4.50 Hgb 13.8 Hct 40.1 MCV 89.1 MCH 30.6 MCHC 34.4 RDW 13.4 Plt Count 255 MPV 9.3 Sodium Potassium Chloride Carbon Dioxide Anion Gap BUN Creatinine Creat Clearance w eGFR POC Glucometer 290 195 Random Glucose Calcium Total Bilirubin AST ALT Alkaline Phosphatase Total Protein Albumin Urine Color Urine Appearance Urine pH Ur Specific [place] Urine Protein Urine Glucose (UA) Urine Ketones Urine Blood Urine Nitrite Urine Bilirubin Urine Urobilinogen Ur Leukocyte Esterase Urine WBC (Auto) Urine RBC (Auto) Ur Epithelial Cells Urine Mucus RPR Titer 04/27/18 04/27/18 04/27/18 05:45 05:45 08:00 WBC RBC Hgb Hct MCV MCH MCHC RDW Plt Count MPV Sodium 139 Potassium 3.5 Chloride 102 Carbon Dioxide 24 Anion Gap 12 BUN 8 Creatinine 1.0 Creat Clearance w eGFR > 60 POC Glucometer Random Glucose 259 H Calcium 9.6 Total Bilirubin 0.4 AST 8 L ALT 15 Alkaline Phosphatase 108 Total Protein 7.3 Albumin 4.0 Urine Color Yellow Urine Appearance Slcloudy Urine pH 5.0 Ur Specific [place] 1.019 Urine Protein 1+ H Urine Glucose (UA) 2+ H Urine Ketones Negative Urine Blood Negative Urine Nitrite Negative Urine Bilirubin Negative Urine Urobilinogen Negative Ur Leukocyte Esterase Negative Urine WBC (Auto) 2 Urine RBC (Auto) 1 Ur Epithelial Cells Rare Urine Mucus Rare RPR Titer Nonreactive 04/27/18 04/28/18 04/28/18 16:30 05:25 16:19 WBC RBC Hgb Hct MCV MCH MCHC RDW Plt Count MPV Sodium Potassium Chloride Carbon Dioxide Anion Gap BUN Creatinine Creat Clearance w eGFR POC Glucometer 230 166 237 Random Glucose Calcium Total Bilirubin AST ALT Alkaline Phosphatase Total Protein Albumin Urine Color Urine Appearance Urine pH Ur Specific [place] Urine Protein Urine Glucose (UA) Urine Ketones Urine Blood Urine Nitrite Urine Bilirubin Urine Urobilinogen Ur Leukocyte Esterase Urine WBC (Auto) Urine RBC (Auto) Ur Epithelial Cells Urine Mucus RPR Titer 04/29/18 04/29/18 04/30/18 05:47 16:30 05:19 WBC RBC Hgb Hct MCV MCH MCHC RDW Plt Count MPV Sodium Potassium Chloride Carbon Dioxide Anion Gap BUN Creatinine Creat Clearance w eGFR POC Glucometer 249 205 142 Random Glucose Calcium Total Bilirubin AST ALT Alkaline Phosphatase Total Protein Albumin Urine Color Urine Appearance Urine pH Ur Specific [place] Urine Protein Urine Glucose (UA) Urine Ketones Urine Blood Urine Nitrite Urine Bilirubin Urine Urobilinogen Ur Leukocyte Esterase Urine WBC (Auto) Urine RBC (Auto) Ur Epithelial Cells Urine Mucus RPR Titer 04/30/18 05/01/18 05/01/18 17:00 05:51 16:47 WBC RBC Hgb Hct MCV MCH MCHC RDW Plt Count MPV Sodium Potassium Chloride Carbon Dioxide Anion Gap BUN Creatinine Creat Clearance w eGFR POC Glucometer 169 208 248 Random Glucose Calcium Total Bilirubin AST ALT Alkaline Phosphatase Total Protein Albumin Urine Color Urine Appearance Urine pH Ur Specific [place] Urine Protein Urine Glucose (UA) Urine Ketones Urine Blood Urine Nitrite Urine Bilirubin Urine Urobilinogen Ur Leukocyte Esterase Urine WBC (Auto) Urine RBC (Auto) Ur Epithelial Cells Urine Mucus RPR Titer 05/02/18 05/02/18 05/03/18 05:57 16:50 06:28 WBC RBC Hgb Hct MCV MCH MCHC RDW Plt Count MPV Sodium Potassium Chloride Carbon Dioxide Anion Gap BUN Creatinine Creat Clearance w eGFR POC Glucometer 162 215 270 Random Glucose Calcium Total Bilirubin AST ALT Alkaline Phosphatase Total Protein Albumin Urine Color Urine Appearance Urine pH Ur Specific [place] Urine Protein Urine Glucose (UA) Urine Ketones Urine Blood Urine Nitrite Urine Bilirubin Urine Urobilinogen Ur Leukocyte Esterase Urine WBC (Auto) Urine RBC (Auto) Ur Epithelial Cells Urine Mucus RPR Titer 05/03/18 05/04/18 05/04/18 16:50 06:04 10:00 WBC RBC Hgb Hct MCV MCH MCHC RDW Plt Count MPV Sodium 137 Potassium 3.6 Chloride 99 Carbon Dioxide 30 Anion Gap 8 BUN 11 Creatinine 0.9 Creat Clearance w eGFR > 60 POC Glucometer 237 152 Random Glucose 286 H Calcium 8.4 L Total Bilirubin AST ALT Alkaline Phosphatase Total Protein Albumin Urine Color Urine Appearance Urine pH Ur Specific [place] Urine Protein Urine Glucose (UA) Urine Ketones Urine Blood Urine Nitrite Urine Bilirubin Urine Urobilinogen Ur Leukocyte Esterase Urine WBC (Auto) Urine RBC (Auto) Ur Epithelial Cells Urine Mucus RPR Titer BMP RESULTS STABLE. PATIENT CONTINUES TO HAVE ELEVATED BLOOD SUGARS WITH METFORMIN 500MG BID. TREATED IN PAST WITH METFORMIN 1GM BID AND CONTINUE TO MONITOR CLINICALLY.
[2018-05-04] MEDS: traZODone HCL 100 MG TABLET (FP) PO SCH (21:31)
[2018-05-04] MEDS: THIAMINE HCL 100 MG TABLET (FP) PO SCH (21:31)
[2018-05-04] MEDS: LATANOPROST 0.005% OPHTH SOLN 2.5ML BOTTLE OU SCH (21:32)
[2018-05-05] MEDS: ACETAMINOPHEN 325 MG TABLET (FP) PO PRN (05:56)
[2018-05-05] MEDS: metFORMIN HCL 500 MG TABLET (FP) PO SCH ×2 (06:20→16:51)
[2018-05-05] MEDS: ARIPiprazole 5 MG TABLET (FP) PO SCH (09:46)
[2018-05-05] MEDS: PRENATAL VITAMINS W/ FOLIC ACID TABLET (FP) PO SCH (09:46)
[2018-05-05] MEDS: TIMOLOL 0.5% OPHTHALMIC SOL 5 ML BOTTLE OD SCH (09:47)
[2018-05-05] MEDS ORDERED: PT OWN MED DRAWER 7, Y5N ONE ×2 (09:48→10:54)
[2018-05-05] MEDS: THIAMINE HCL 100 MG TABLET (FP) PO SCH (21:30)
[2018-05-05] MEDS: traZODone HCL 100 MG TABLET (FP) PO SCH (21:30)
[2018-05-05] MEDS: LATANOPROST 0.005% OPHTH SOLN 2.5ML BOTTLE OU SCH (21:31)
[2018-05-06] MEDS: metFORMIN HCL 500 MG TABLET (FP) PO SCH ×2 (06:36→16:41)
[2018-05-06] MEDS: TIMOLOL 0.5% OPHTHALMIC SOL 5 ML BOTTLE OD SCH (09:34)
[2018-05-06] MEDS: PRENATAL VITAMINS W/ FOLIC ACID TABLET (FP) PO SCH (09:34)
[2018-05-06] MEDS: ARIPiprazole 5 MG TABLET (FP) PO SCH (09:34)
[2018-05-06] MEDS: traZODone HCL 100 MG TABLET (FP) PO SCH (21:26)
[2018-05-06] MEDS: THIAMINE HCL 100 MG TABLET (FP) PO SCH (21:26)
[2018-05-06] MEDS: LATANOPROST 0.005% OPHTH SOLN 2.5ML BOTTLE OU SCH (21:26)
[2018-05-07] MEDS: ACETAMINOPHEN 325 MG TABLET (FP) PO PRN (06:19)
[2018-05-07] MEDS: metFORMIN HCL 500 MG TABLET (FP) PO SCH ×2 (06:45→16:32)
[2018-05-07] MEDS ORDERED: PT OWN MED DRAWER 7, Y5N ONE (08:46)
[2018-05-07] MEDS: PRENATAL VITAMINS W/ FOLIC ACID TABLET (FP) PO SCH (09:30)
[2018-05-07] MEDS: ARIPiprazole 5 MG TABLET (FP) PO SCH (09:30)
[2018-05-07] MEDS: TIMOLOL 0.5% OPHTHALMIC SOL 5 ML BOTTLE OD SCH (09:31)
[2018-05-07] MEDS: THIAMINE HCL 100 MG TABLET (FP) PO SCH (21:16)
[2018-05-07] MEDS: traZODone HCL 100 MG TABLET (FP) PO SCH (21:16)
[2018-05-07] MEDS: LATANOPROST 0.005% OPHTH SOLN 2.5ML BOTTLE OU SCH (21:17)
[2018-05-08] MEDS: metFORMIN HCL 500 MG TABLET (FP) PO SCH ×2 (06:35→17:04)
[2018-05-08] MEDS: TIMOLOL 0.5% OPHTHALMIC SOL 5 ML BOTTLE OD SCH (09:35)
[2018-05-08] MEDS: PRENATAL VITAMINS W/ FOLIC ACID TABLET (FP) PO SCH (09:35)
[2018-05-08] MEDS: ARIPiprazole 5 MG TABLET (FP) PO SCH (09:35)
[2018-05-08] MEDS: ACETAMINOPHEN 325 MG TABLET (FP) PO PRN (15:20)
[2018-05-08] MEDS ORDERED: PT OWN MED DRAWER 7, Y5N ONE (19:31)
[2018-05-08] MEDS: THIAMINE HCL 100 MG TABLET (FP) PO SCH (21:22)
[2018-05-08] MEDS: traZODone HCL 100 MG TABLET (FP) PO SCH (21:22)
[2018-05-08] MEDS: LATANOPROST 0.005% OPHTH SOLN 2.5ML BOTTLE OU SCH (21:22)
[2018-05-09] MEDS: metFORMIN HCL 500 MG TABLET (FP) PO SCH ×2 (06:02→16:44)
[2018-05-09] MEDS: ARIPiprazole 5 MG TABLET (FP) PO SCH (09:48)
[2018-05-09] MEDS: PRENATAL VITAMINS W/ FOLIC ACID TABLET (FP) PO SCH (09:48)
[2018-05-09] MEDS: TIMOLOL 0.5% OPHTHALMIC SOL 5 ML BOTTLE OD SCH (09:48)
[2018-05-09] MEDS: ACETAMINOPHEN 325 MG TABLET (FP) PO PRN (16:43)
[2018-05-09] MEDS: traZODone HCL 100 MG TABLET (FP) PO SCH (21:56)
[2018-05-09] MEDS: THIAMINE HCL 100 MG TABLET (FP) PO SCH (21:56)
[2018-05-09] MEDS: LATANOPROST 0.005% OPHTH SOLN 2.5ML BOTTLE OU SCH (21:56)
[2018-05-09] MEDS: MELATONIN 5 MG TABLETS PO PRN (21:57)
[2018-05-10] MEDS: metFORMIN HCL 500 MG TABLET (FP) PO SCH ×2 (06:45→16:54)
[2018-05-10] MEDS: ARIPiprazole 5 MG TABLET (FP) PO SCH (10:09)
[2018-05-10] MEDS: PRENATAL VITAMINS W/ FOLIC ACID TABLET (FP) PO SCH (10:09)
[2018-05-10] MEDS: TIMOLOL 0.5% OPHTHALMIC SOL 5 ML BOTTLE OD SCH (10:09)
[2018-05-10] MEDS: ACETAMINOPHEN 325 MG TABLET (FP) PO PRN (14:45)
[2018-05-10] MEDS: traZODone HCL 100 MG TABLET (FP) PO SCH (21:13)
[2018-05-10] MEDS: THIAMINE HCL 100 MG TABLET (FP) PO SCH (21:13)
[2018-05-10] MEDS: MELATONIN 5 MG TABLETS PO PRN (21:14)
[2018-05-10] MEDS: LATANOPROST 0.005% OPHTH SOLN 2.5ML BOTTLE OU SCH (21:14)
[2018-05-11] MEDS: metFORMIN HCL 500 MG TABLET (FP) PO SCH ×2 (06:31→16:48)
[2018-05-11] MEDS: TIMOLOL 0.5% OPHTHALMIC SOL 5 ML BOTTLE OD SCH (10:11)
[2018-05-11] MEDS: PRENATAL VITAMINS W/ FOLIC ACID TABLET (FP) PO SCH (10:12)
[2018-05-11] MEDS: ARIPiprazole 5 MG TABLET (FP) PO SCH (10:12)
[2018-05-11] MEDS: ACETAMINOPHEN 325 MG TABLET (FP) PO PRN (15:11)
[2018-05-11] MEDS: THIAMINE HCL 100 MG TABLET (FP) PO SCH (21:26)
[2018-05-11] MEDS: MELATONIN 5 MG TABLETS PO PRN (21:26)
[2018-05-11] MEDS: traZODone HCL 100 MG TABLET (FP) PO SCH (21:26)
[2018-05-11] MEDS: LATANOPROST 0.005% OPHTH SOLN 2.5ML BOTTLE OU SCH (21:27)
[2018-05-12] MEDS: metFORMIN HCL 500 MG TABLET (FP) PO SCH ×2 (07:08→16:44)
[2018-05-12] MEDS: PRENATAL VITAMINS W/ FOLIC ACID TABLET (FP) PO SCH (10:25)
[2018-05-12] MEDS: ARIPiprazole 5 MG TABLET (FP) PO SCH (10:25)
[2018-05-12] MEDS: TIMOLOL 0.5% OPHTHALMIC SOL 5 ML BOTTLE OD SCH (10:25)
[2018-05-12] MEDS: ACETAMINOPHEN 325 MG TABLET (FP) PO PRN (14:51)
[2018-05-12] MEDS: THIAMINE HCL 100 MG TABLET (FP) PO SCH (21:13)
[2018-05-12] MEDS: LATANOPROST 0.005% OPHTH SOLN 2.5ML BOTTLE OU SCH (21:13)
[2018-05-12] MEDS: MELATONIN 5 MG TABLETS PO PRN (21:13)
[2018-05-12] MEDS: traZODone HCL 100 MG TABLET (FP) PO SCH (21:13)
[2018-05-13] MEDS: metFORMIN HCL 500 MG TABLET (FP) PO SCH ×2 (06:08→16:36)
[2018-05-13] MEDS: ARIPiprazole 5 MG TABLET (FP) PO SCH (10:26)
[2018-05-13] MEDS: TIMOLOL 0.5% OPHTHALMIC SOL 5 ML BOTTLE OD SCH (10:26)
[2018-05-13] MEDS: PRENATAL VITAMINS W/ FOLIC ACID TABLET (FP) PO SCH (10:26)
--- NOTE | 2018-05-13 15:16 | PN ---
[facility] Progress Note Note: PATIENT REPORTS H/O BPH AND TREATMENT WITH FLOMAX. PATIENT REPORTS URGENCY AND NOCTURIA BUT DENIES DYSURIA. WILL ORDER FLOMAX 0.4MG HS AND MONITOR CLINICALLY. Vital Signs Temperature 98.2 F 05/13/18 06:50 Pulse Rate 97 H 05/13/18 06:50 Respiratory Rate 20 05/13/18 06:50 Blood Pressure 148/97 05/13/18 06:50 O2 Sat by Pulse Oximetry (%)
[2018-05-13] MEDS: traZODone HCL 100 MG TABLET (FP) PO SCH (21:22)
[2018-05-13] MEDS: THIAMINE HCL 100 MG TABLET (FP) PO SCH (21:22)
[2018-05-13] MEDS: MELATONIN 5 MG TABLETS PO PRN (21:22)
[2018-05-13] MEDS: LATANOPROST 0.005% OPHTH SOLN 2.5ML BOTTLE OU SCH (21:23)
[2018-05-13] MEDS: TAMSULOSIN HCL 0.4 MG CAP PO SCH (21:24)
[2018-05-14] MEDS: metFORMIN HCL 500 MG TABLET (FP) PO SCH ×2 (06:49→16:31)
[2018-05-14] MEDS: PRENATAL VITAMINS W/ FOLIC ACID TABLET (FP) PO SCH (10:25)
[2018-05-14] MEDS: TIMOLOL 0.5% OPHTHALMIC SOL 5 ML BOTTLE OD SCH (10:25)
[2018-05-14] MEDS: ARIPiprazole 5 MG TABLET (FP) PO SCH (10:26)
[2018-05-14] MEDS: THIAMINE HCL 100 MG TABLET (FP) PO SCH (21:31)
[2018-05-14] MEDS: TAMSULOSIN HCL 0.4 MG CAP PO SCH (21:31)
[2018-05-14] MEDS: traZODone HCL 100 MG TABLET (FP) PO SCH (21:31)
[2018-05-14] MEDS: MELATONIN 5 MG TABLETS PO PRN (21:32)
[2018-05-14] MEDS: LATANOPROST 0.005% OPHTH SOLN 2.5ML BOTTLE OU SCH (21:33)
[2018-05-15] MEDS: metFORMIN HCL 500 MG TABLET (FP) PO SCH ×2 (06:51→16:30)
[2018-05-15] MEDS: TIMOLOL 0.5% OPHTHALMIC SOL 5 ML BOTTLE OD SCH (10:50)
[2018-05-15] MEDS: PRENATAL VITAMINS W/ FOLIC ACID TABLET (FP) PO SCH (10:50)
[2018-05-15] MEDS: ARIPiprazole 5 MG TABLET (FP) PO SCH (10:51)
[2018-05-15] MEDS: ACETAMINOPHEN 325 MG TABLET (FP) PO PRN (16:32)
[2018-05-15] MEDS: TAMSULOSIN HCL 0.4 MG CAP PO SCH (21:40)
[2018-05-15] MEDS: THIAMINE HCL 100 MG TABLET (FP) PO SCH (21:40)
[2018-05-15] MEDS: traZODone HCL 100 MG TABLET (FP) PO SCH (21:40)
[2018-05-15] MEDS: LATANOPROST 0.005% OPHTH SOLN 2.5ML BOTTLE OU SCH (21:42)
[2018-05-16] MEDS: ACETAMINOPHEN 325 MG TABLET (FP) PO PRN (05:57)
[2018-05-16] MEDS: metFORMIN HCL 500 MG TABLET (FP) PO SCH ×2 (06:55→16:42)
[2018-05-16] MEDS: TIMOLOL 0.5% OPHTHALMIC SOL 5 ML BOTTLE OD SCH (09:43)
[2018-05-16] MEDS: PRENATAL VITAMINS W/ FOLIC ACID TABLET (FP) PO SCH (09:44)
[2018-05-16] MEDS: ARIPiprazole 5 MG TABLET (FP) PO SCH (09:45)
[2018-05-16] MEDS: traZODone HCL 100 MG TABLET (FP) PO SCH (21:25)
[2018-05-16] MEDS: TAMSULOSIN HCL 0.4 MG CAP PO SCH (21:25)
[2018-05-16] MEDS: LATANOPROST 0.005% OPHTH SOLN 2.5ML BOTTLE OU SCH (21:25)
[2018-05-16] MEDS: THIAMINE HCL 100 MG TABLET (FP) PO SCH (21:25)
[2018-05-16] MEDS: MELATONIN 5 MG TABLETS PO PRN (21:25)
[2018-05-17] MEDS: metFORMIN HCL 500 MG TABLET (FP) PO SCH ×2 (06:51→16:45)
[2018-05-17] MEDS: TIMOLOL 0.5% OPHTHALMIC SOL 5 ML BOTTLE OD SCH (10:19)
[2018-05-17] MEDS: PRENATAL VITAMINS W/ FOLIC ACID TABLET (FP) PO SCH (10:19)
[2018-05-17] MEDS: ARIPiprazole 5 MG TABLET (FP) PO SCH (10:19)
[2018-05-17] MEDS: ACETAMINOPHEN 325 MG TABLET (FP) PO PRN (10:19)
[2018-05-17] MEDS ORDERED: PT OWN MED DRAWER 7, Y5N ONE (19:54)
[2018-05-17] MEDS: THIAMINE HCL 100 MG TABLET (FP) PO SCH (21:44)
[2018-05-17] MEDS: TAMSULOSIN HCL 0.4 MG CAP PO SCH (21:44)
[2018-05-17] MEDS: LATANOPROST 0.005% OPHTH SOLN 2.5ML BOTTLE OU SCH (21:45)
[2018-05-17] MEDS: MELATONIN 5 MG TABLETS PO PRN (21:45)
[2018-05-17] MEDS: traZODone HCL 100 MG TABLET (FP) PO SCH (21:45)
[2018-05-18] MEDS: metFORMIN HCL 500 MG TABLET (FP) PO SCH ×2 (06:04→16:56)
[2018-05-18] MEDS: PRENATAL VITAMINS W/ FOLIC ACID TABLET (FP) PO SCH (09:49)
[2018-05-18] MEDS: TIMOLOL 0.5% OPHTHALMIC SOL 5 ML BOTTLE OD SCH (09:50)
[2018-05-18] MEDS: ARIPiprazole 5 MG TABLET (FP) PO SCH (09:51)
[2018-05-18] MEDS: LATANOPROST 0.005% OPHTH SOLN 2.5ML BOTTLE OU SCH (21:51)
[2018-05-18] MEDS: traZODone HCL 100 MG TABLET (FP) PO SCH (21:52)
[2018-05-18] MEDS: THIAMINE HCL 100 MG TABLET (FP) PO SCH (21:52)
[2018-05-18] MEDS: MELATONIN 5 MG TABLETS PO PRN (21:52)
[2018-05-18] MEDS: TAMSULOSIN HCL 0.4 MG CAP PO SCH (21:52)
[2018-05-19] MEDS: metFORMIN HCL 500 MG TABLET (FP) PO SCH ×2 (06:11→16:57)
[2018-05-19] MEDS: TIMOLOL 0.5% OPHTHALMIC SOL 5 ML BOTTLE OD SCH (10:27)
[2018-05-19] MEDS: ARIPiprazole 5 MG TABLET (FP) PO SCH (10:28)
[2018-05-19] MEDS: PRENATAL VITAMINS W/ FOLIC ACID TABLET (FP) PO SCH (10:28)
[2018-05-19] MEDS: ACETAMINOPHEN 325 MG TABLET (FP) PO PRN (19:59)
[2018-05-19] MEDS: MELATONIN 5 MG TABLETS PO PRN (21:12)
[2018-05-19] MEDS: TAMSULOSIN HCL 0.4 MG CAP PO SCH (21:12)
[2018-05-19] MEDS: THIAMINE HCL 100 MG TABLET (FP) PO SCH (21:12)
[2018-05-19] MEDS: traZODone HCL 100 MG TABLET (FP) PO SCH (21:12)
[2018-05-19] MEDS: LATANOPROST 0.005% OPHTH SOLN 2.5ML BOTTLE OU SCH (21:13)
[2018-05-20] MEDS: metFORMIN HCL 500 MG TABLET (FP) PO SCH ×2 (06:41→16:38)
[2018-05-20] MEDS: TIMOLOL 0.5% OPHTHALMIC SOL 5 ML BOTTLE OD SCH (09:45)
[2018-05-20] MEDS: ARIPiprazole 5 MG TABLET (FP) PO SCH (09:46)
[2018-05-20] MEDS: PRENATAL VITAMINS W/ FOLIC ACID TABLET (FP) PO SCH (09:46)
[2018-05-20] MEDS: THIAMINE HCL 100 MG TABLET (FP) PO SCH (21:29)
[2018-05-20] MEDS: traZODone HCL 100 MG TABLET (FP) PO SCH (21:29)
[2018-05-20] MEDS: TAMSULOSIN HCL 0.4 MG CAP PO SCH (21:29)
[2018-05-20] MEDS: LATANOPROST 0.005% OPHTH SOLN 2.5ML BOTTLE OU SCH (21:29)
[2018-05-20] MEDS: MELATONIN 5 MG TABLETS PO PRN (21:36)
[2018-05-21] MEDS: metFORMIN HCL 500 MG TABLET (FP) PO SCH ×2 (06:31→16:46)
--- NOTE | 2018-05-21 09:30 | PN ---
[facility] Progress Note Note: PATIENT SEEN FOR C/O LBP WITH SCIATIC PAIN TO LEFT POSTERIOR THIGH. PATIENT DENIES RECENT INJURY TO LOWER BACK. 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 APAP/IBU INEFFECTIVE FOR PAIN RELIEF. Vital Signs Temperature 98.5 F 05/21/18 06:41 Pulse Rate 92 H 05/21/18 06:41 Respiratory Rate 20 05/21/18 06:41 Blood Pressure 139/86 05/21/18 06:41 O2 Sat by Pulse Oximetry (%) Laboratory Tests 04/26/18 04/27/18 04/27/18 16:49 05:32 05:45 WBC 4.4 RBC 4.50 Hgb 13.8 Hct 40.1 MCV 89.1 MCH 30.6 MCHC 34.4 RDW 13.4 Plt Count 255 MPV 9.3 Sodium Potassium Chloride Carbon Dioxide Anion Gap BUN Creatinine Creat Clearance w eGFR POC Glucometer 290 195 Random Glucose Calcium Total Bilirubin AST ALT Alkaline Phosphatase Total Protein Albumin Urine Color Urine Appearance Urine pH Ur Specific [place] Urine Protein Urine Glucose (UA) Urine Ketones Urine Blood Urine Nitrite Urine Bilirubin Urine Urobilinogen Ur Leukocyte Esterase Urine WBC (Auto) Urine RBC (Auto) Ur Epithelial Cells Urine Mucus RPR Titer 04/27/18 04/27/18 04/27/18 05:45 05:45 08:00 WBC RBC Hgb Hct MCV MCH MCHC RDW Plt Count MPV Sodium 139 Potassium 3.5 Chloride 102 Carbon Dioxide 24 Anion Gap 12 BUN 8 Creatinine 1.0 Creat Clearance w eGFR > 60 POC Glucometer Random Glucose 259 H Calcium 9.6 Total Bilirubin 0.4 AST 8 L ALT 15 Alkaline Phosphatase 108 Total Protein 7.3 Albumin 4.0 Urine Color Yellow Urine Appearance Slcloudy Urine pH 5.0 Ur Specific [place] 1.019 Urine Protein 1+ H Urine Glucose (UA) 2+ H Urine Ketones Negative Urine Blood Negative Urine Nitrite Negative Urine Bilirubin Negative Urine Urobilinogen Negative Ur Leukocyte Esterase Negative Urine WBC (Auto) 2 Urine RBC (Auto) 1 Ur Epithelial Cells Rare Urine Mucus Rare RPR Titer Nonreactive 04/27/18 04/28/18 04/28/18 16:30 05:25 16:19 WBC RBC Hgb Hct MCV MCH MCHC RDW Plt Count MPV Sodium Potassium Chloride Carbon Dioxide Anion Gap BUN Creatinine Creat Clearance w eGFR POC Glucometer 230 166 237 Random Glucose Calcium Total Bilirubin AST ALT Alkaline Phosphatase Total Protein Albumin Urine Color Urine Appearance Urine pH Ur Specific [place] Urine Protein Urine Glucose (UA) Urine Ketones Urine Blood Urine Nitrite Urine Bilirubin Urine Urobilinogen Ur Leukocyte Esterase Urine WBC (Auto) Urine RBC (Auto) Ur Epithelial Cells Urine Mucus RPR Titer 04/29/18 04/29/18 04/30/18 05:47 16:30 05:19 WBC RBC Hgb Hct MCV MCH MCHC RDW Plt Count MPV Sodium Potassium Chloride Carbon Dioxide Anion Gap BUN Creatinine Creat Clearance w eGFR POC Glucometer 249 205 142 Random Glucose Calcium Total Bilirubin AST ALT Alkaline Phosphatase Total Protein Albumin Urine Color Urine Appearance Urine pH Ur Specific [place] Urine Protein Urine Glucose (UA) Urine Ketones Urine Blood Urine Nitrite Urine Bilirubin Urine Urobilinogen Ur Leukocyte Esterase Urine WBC (Auto) Urine RBC (Auto) Ur Epithelial Cells Urine Mucus RPR Titer 04/30/18 05/01/18 05/01/18 17:00 05:51 16:47 WBC RBC Hgb Hct MCV MCH MCHC RDW Plt Count MPV Sodium Potassium Chloride Carbon Dioxide Anion Gap BUN Creatinine Creat Clearance w eGFR POC Glucometer 169 208 248 Random Glucose Calcium Total Bilirubin AST ALT Alkaline Phosphatase Total Protein Albumin Urine Color Urine Appearance Urine pH Ur Specific [place] Urine Protein Urine Glucose (UA) Urine Ketones Urine Blood Urine Nitrite Urine Bilirubin Urine Urobilinogen Ur Leukocyte Esterase Urine WBC (Auto) Urine RBC (Auto) Ur Epithelial Cells Urine Mucus RPR Titer 05/02/18 05/02/18 05/03/18 05:57 16:50 06:28 WBC RBC Hgb Hct MCV MCH MCHC RDW Plt Count MPV Sodium Potassium Chloride Carbon Dioxide Anion Gap BUN Creatinine Creat Clearance w eGFR POC Glucometer 162 215 270 Random Glucose Calcium Total Bilirubin AST ALT Alkaline Phosphatase Total Protein Albumin Urine Color Urine Appearance Urine pH Ur Specific [place] Urine Protein Urine Glucose (UA) Urine Ketones Urine Blood Urine Nitrite Urine Bilirubin Urine Urobilinogen Ur Leukocyte Esterase Urine WBC (Auto) Urine RBC (Auto) Ur Epithelial Cells Urine Mucus RPR Titer 05/03/18 05/04/18 05/04/18 16:50 06:04 10:00 WBC RBC Hgb Hct MCV MCH MCHC RDW Plt Count MPV Sodium 137 Potassium 3.6 Chloride 99 Carbon Dioxide 30 Anion Gap 8 BUN 11 Creatinine 0.9 Creat Clearance w eGFR > 60 POC Glucometer 237 152 Random Glucose 286 H Calcium 8.4 L Total Bilirubin AST ALT Alkaline Phosphatase Total Protein Albumin Urine Color Urine Appearance Urine pH Ur Specific [place] Urine Protein Urine Glucose (UA) Urine Ketones Urine Blood Urine Nitrite Urine Bilirubin Urine Urobilinogen Ur Leukocyte Esterase Urine WBC (Auto) Urine RBC (Auto) Ur Epithelial Cells Urine Mucus RPR Titer 05/04/18 05/05/18 05/05/18 16:49 05:54 16:50 WBC RBC Hgb Hct MCV MCH MCHC RDW Plt Count MPV Sodium Potassium Chloride Carbon Dioxide Anion Gap BUN Creatinine Creat Clearance w eGFR POC Glucometer 270 238 223 Random Glucose Calcium Total Bilirubin AST ALT Alkaline Phosphatase Total Protein Albumin Urine Color Urine Appearance Urine pH Ur Specific [place] Urine Protein Urine Glucose (UA) Urine Ketones Urine Blood Urine Nitrite Urine Bilirubin Urine Urobilinogen Ur Leukocyte Esterase Urine WBC (Auto) Urine RBC (Auto) Ur Epithelial Cells Urine Mucus RPR Titer 05/06/18 05/06/18 05/07/18 06:24 16:40 06:18 WBC RBC Hgb Hct MCV MCH MCHC RDW Plt Count MPV Sodium Potassium Chloride Carbon Dioxide Anion Gap BUN Creatinine Creat Clearance w eGFR POC Glucometer 167 187 135 Random Glucose Calcium Total Bilirubin AST ALT Alkaline Phosphatase Total Protein Albumin Urine Color Urine Appearance Urine pH Ur Specific [place] Urine Protein Urine Glucose (UA) Urine Ketones Urine Blood Urine Nitrite Urine Bilirubin Urine Urobilinogen Ur Leukocyte Esterase Urine WBC (Auto) Urine RBC (Auto) Ur Epithelial Cells Urine Mucus RPR Titer 05/07/18 05/08/18 05/08/18 16:31 06:34 16:20 WBC RBC Hgb Hct MCV MCH MCHC RDW Plt Count MPV Sodium Potassium Chloride Carbon Dioxide Anion Gap BUN Creatinine Creat Clearance w eGFR POC Glucometer 160 150 212 Random Glucose Calcium Total Bilirubin AST ALT Alkaline Phosphatase Total Protein Albumin Urine Color Urine Appearance Urine pH Ur Specific [place] Urine Protein Urine Glucose (UA) Urine Ketones Urine Blood Urine Nitrite Urine Bilirubin Urine Urobilinogen Ur Leukocyte Esterase Urine WBC (Auto) Urine RBC (Auto) Ur Epithelial Cells Urine Mucus RPR Titer 05/09/18 05/09/18 05/10/18 06:01 16:13 06:10 WBC RBC Hgb Hct MCV MCH MCHC RDW Plt Count MPV Sodium Potassium Chloride Carbon Dioxide Anion Gap BUN Creatinine Creat Clearance w eGFR POC Glucometer 139 202 140 Random Glucose Calcium Total Bilirubin AST ALT Alkaline Phosphatase Total Protein Albumin Urine Color Urine Appearance Urine pH Ur Specific [place] Urine Protein Urine Glucose (UA) Urine Ketones Urine Blood Urine Nitrite Urine Bilirubin Urine Urobilinogen Ur Leukocyte Esterase Urine WBC (Auto) Urine RBC (Auto) Ur Epithelial Cells Urine Mucus RPR Titer 05/10/18 05/11/18 05/11/18 16:52 06:12 16:46 WBC RBC Hgb Hct MCV MCH MCHC RDW Plt Count MPV Sodium Potassium Chloride Carbon Dioxide Anion Gap BUN Creatinine Creat Clearance w eGFR POC Glucometer 176 127 225 Random Glucose Calcium Total Bilirubin AST ALT Alkaline Phosphatase Total Protein Albumin Urine Color Urine Appearance Urine pH Ur Specific [place] Urine Protein Urine Glucose (UA) Urine Ketones Urine Blood Urine Nitrite Urine Bilirubin Urine Urobilinogen Ur Leukocyte Esterase Urine WBC (Auto) Urine RBC (Auto) Ur Epithelial Cells Urine Mucus RPR Titer 05/12/18 05/12/18 05/13/18 06:46 16:43 06:07 WBC RBC Hgb Hct MCV MCH MCHC RDW Plt Count MPV Sodium Potassium Chloride Carbon Dioxide Anion Gap BUN Creatinine Creat Clearance w eGFR POC Glucometer 140 145 167 Random Glucose Calcium Total Bilirubin AST ALT Alkaline Phosphatase Total Protein Albumin Urine Color Urine Appearance Urine pH Ur Specific [place] Urine Protein Urine Glucose (UA) Urine Ketones Urine Blood Urine Nitrite Urine Bilirubin Urine Urobilinogen Ur Leukocyte Esterase Urine WBC (Auto) Urine RBC (Auto) Ur Epithelial Cells Urine Mucus RPR Titer 05/13/18 05/14/18 05/14/18 16:34 06:32 16:30 WBC RBC Hgb Hct MCV MCH MCHC RDW Plt Count MPV Sodium Potassium Chloride Carbon Dioxide Anion Gap BUN Creatinine Creat Clearance w eGFR POC Glucometer 166 127 223 Random Glucose Calcium Total Bilirubin AST ALT Alkaline Phosphatase Total Protein Albumin Urine Color Urine Appearance Urine pH Ur Specific [place] Urine Protein Urine Glucose (UA) Urine Ketones Urine Blood Urine Nitrite Urine Bilirubin Urine Urobilinogen Ur Leukocyte Esterase Urine WBC (Auto) Urine RBC (Auto) Ur Epithelial Cells Urine Mucus RPR Titer 05/15/18 05/15/18 05/16/18 06:28 16:33 05:55 WBC RBC Hgb Hct MCV MCH MCHC RDW Plt Count MPV Sodium Potassium Chloride Carbon Dioxide Anion Gap BUN Creatinine Creat Clearance w eGFR POC Glucometer 136 187 148 Random Glucose Calcium Total Bilirubin AST ALT Alkaline Phosphatase Total Protein Albumin Urine Color Urine Appearance Urine pH Ur Specific [place] Urine Protein Urine Glucose (UA) Urine Ketones Urine Blood Urine Nitrite Urine Bilirubin Urine Urobilinogen Ur Leukocyte Esterase Urine WBC (Auto) Urine RBC (Auto) Ur Epithelial Cells Urine Mucus RPR Titer 05/16/18 05/17/18 05/17/18 16:40 06:00 16:44 WBC RBC Hgb Hct MCV MCH MCHC RDW Plt Count MPV Sodium Potassium Chloride Carbon Dioxide Anion Gap BUN Creatinine Creat Clearance w eGFR POC Glucometer 145 163 189 Random Glucose Calcium Total Bilirubin AST ALT Alkaline Phosphatase Total Protein Albumin Urine Color Urine Appearance Urine pH Ur Specific [place] Urine Protein Urine Glucose (UA) Urine Ketones Urine Blood Urine Nitrite Urine Bilirubin Urine Urobilinogen Ur Leukocyte Esterase Urine WBC (Auto) Urine RBC (Auto) Ur Epithelial Cells Urine Mucus RPR Titer 05/18/18 05/18/18 05/19/18 06:04 16:55 05:58 WBC RBC Hgb Hct MCV MCH MCHC RDW Plt Count MPV Sodium Potassium Chloride Carbon Dioxide Anion Gap BUN Creatinine Creat Clearance w eGFR POC Glucometer 145 213 128 Random Glucose Calcium Total Bilirubin AST ALT Alkaline Phosphatase Total Protein Albumin Urine Color Urine Appearance Urine pH Ur Specific [place] Urine Protein Urine Glucose (UA) Urine Ketones Urine Blood Urine Nitrite Urine Bilirubin Urine Urobilinogen Ur Leukocyte Esterase Urine WBC (Auto) Urine RBC (Auto) Ur Epithelial Cells Urine Mucus RPR Titer 05/19/18 05/20/18 05/20/18 16:56 05:59 16:38 WBC RBC Hgb Hct MCV MCH MCHC RDW Plt Count MPV Sodium Potassium Chloride Carbon Dioxide Anion Gap BUN Creatinine Creat Clearance w eGFR POC Glucometer 153 145 183 Random Glucose Calcium Total Bilirubin AST ALT Alkaline Phosphatase Total Protein Albumin Urine Color Urine Appearance Urine pH Ur Specific [place] Urine Protein Urine Glucose (UA) Urine Ketones Urine Blood Urine Nitrite Urine Bilirubin Urine Urobilinogen Ur Leukocyte Esterase Urine WBC (Auto) Urine RBC (Auto) Ur Epithelial Cells Urine Mucus RPR Titer 05/21/18 06:00 WBC RBC Hgb Hct MCV MCH MCHC RDW Plt Count MPV Sodium Potassium Chloride Carbon Dioxide Anion Gap BUN Creatinine Creat Clearance w eGFR POC Glucometer 144 Random Glucose Calcium Total Bilirubin AST ALT Alkaline Phosphatase Total Protein Albumin Urine Color Urine Appearance Urine pH Ur Specific [place] Urine Protein Urine Glucose (UA) Urine Ketones Urine Blood Urine Nitrite Urine Bilirubin Urine Urobilinogen Ur Leukocyte Esterase Urine WBC (Auto) Urine RBC (Auto) Ur Epithelial Cells Urine Mucus RPR Titer PE: ALERT AND ORIENTED X 3 SKIN WARM AND DRY MS + LS SPINE TENDERNESS EXT FULL ROM, AMB AD COBY A/P: LBP/ SCIATICA WILL ADD FLEXERIL 5MG PO TID PRN CONTINUE TO MONITOR CLINICALLY
[2018-05-21] MEDS: PRENATAL VITAMINS W/ FOLIC ACID TABLET (FP) PO SCH (10:19)
[2018-05-21] MEDS: ARIPiprazole 5 MG TABLET (FP) PO SCH (10:20)
[2018-05-21] MEDS: TIMOLOL 0.5% OPHTHALMIC SOL 5 ML BOTTLE OD SCH (10:20)
[2018-05-21] MEDS: CYCLOBENZAPRINE HCL 5 MG TABLET PO SCH ×2 (13:30→21:39)
[2018-05-21] MEDS: THIAMINE HCL 100 MG TABLET (FP) PO SCH (21:38)
[2018-05-21] MEDS: LATANOPROST 0.005% OPHTH SOLN 2.5ML BOTTLE OU SCH (21:39)
[2018-05-21] MEDS: traZODone HCL 100 MG TABLET (FP) PO SCH (21:39)
[2018-05-21] MEDS: TAMSULOSIN HCL 0.4 MG CAP PO SCH (21:39)
[2018-05-22] MEDS: CYCLOBENZAPRINE HCL 5 MG TABLET PO SCH ×3 (06:10→21:32)
[2018-05-22] MEDS: metFORMIN HCL 500 MG TABLET (FP) PO SCH ×2 (06:11→16:33)
[2018-05-22] MEDS: ARIPiprazole 5 MG TABLET (FP) PO SCH (10:11)
[2018-05-22] MEDS: PRENATAL VITAMINS W/ FOLIC ACID TABLET (FP) PO SCH (10:11)
[2018-05-22] MEDS: TIMOLOL 0.5% OPHTHALMIC SOL 5 ML BOTTLE OD SCH (10:12)
[2018-05-22] MEDS: TAMSULOSIN HCL 0.4 MG CAP PO SCH (21:32)
[2018-05-22] MEDS: THIAMINE HCL 100 MG TABLET (FP) PO SCH (21:32)
[2018-05-22] MEDS: traZODone HCL 100 MG TABLET (FP) PO SCH (21:32)
[2018-05-22] MEDS: MELATONIN 5 MG TABLETS PO PRN (21:33)
[2018-05-22] MEDS: LATANOPROST 0.005% OPHTH SOLN 2.5ML BOTTLE OU SCH (22:09)
[2018-05-23] MEDS: CYCLOBENZAPRINE HCL 5 MG TABLET PO SCH ×3 (06:28→21:28)
[2018-05-23] MEDS: metFORMIN HCL 500 MG TABLET (FP) PO SCH ×2 (06:28→16:24)
[2018-05-23] MEDS: PRENATAL VITAMINS W/ FOLIC ACID TABLET (FP) PO SCH (09:48)
[2018-05-23] MEDS: ARIPiprazole 5 MG TABLET (FP) PO SCH (09:48)
[2018-05-23] MEDS: TIMOLOL 0.5% OPHTHALMIC SOL 5 ML BOTTLE OD SCH (09:48)
[2018-05-23] MEDS: TAMSULOSIN HCL 0.4 MG CAP PO SCH (21:28)
[2018-05-23] MEDS: LATANOPROST 0.005% OPHTH SOLN 2.5ML BOTTLE OU SCH (21:28)
[2018-05-23] MEDS: THIAMINE HCL 100 MG TABLET (FP) PO SCH (21:28)
[2018-05-23] MEDS: MELATONIN 5 MG TABLETS PO PRN (21:28)
[2018-05-23] MEDS: traZODone HCL 100 MG TABLET (FP) PO SCH (21:28)
[2018-05-24] MEDS: CYCLOBENZAPRINE HCL 5 MG TABLET PO SCH ×3 (06:14→21:18)
[2018-05-24] MEDS: metFORMIN HCL 500 MG TABLET (FP) PO SCH ×2 (06:42→16:44)
[2018-05-24] MEDS: PRENATAL VITAMINS W/ FOLIC ACID TABLET (FP) PO SCH (09:58)
[2018-05-24] MEDS: ARIPiprazole 5 MG TABLET (FP) PO SCH (09:58)
[2018-05-24] MEDS: TIMOLOL 0.5% OPHTHALMIC SOL 5 ML BOTTLE OD SCH (09:59)
[2018-05-24] MEDS: THIAMINE HCL 100 MG TABLET (FP) PO SCH (21:17)
[2018-05-24] MEDS: LATANOPROST 0.005% OPHTH SOLN 2.5ML BOTTLE OU SCH (21:18)
[2018-05-24] MEDS: traZODone HCL 100 MG TABLET (FP) PO SCH (21:18)
[2018-05-24] MEDS: TAMSULOSIN HCL 0.4 MG CAP PO SCH (21:18)
[2018-05-25] MEDS: CYCLOBENZAPRINE HCL 5 MG TABLET PO SCH ×3 (05:59→21:21)
[2018-05-25] MEDS: metFORMIN HCL 500 MG TABLET (FP) PO SCH ×2 (06:26→16:36)
[2018-05-25] MEDS: TIMOLOL 0.5% OPHTHALMIC SOL 5 ML BOTTLE OD SCH (10:36)
[2018-05-25] MEDS: PRENATAL VITAMINS W/ FOLIC ACID TABLET (FP) PO SCH (10:37)
[2018-05-25] MEDS: ARIPiprazole 5 MG TABLET (FP) PO SCH (10:37)
[2018-05-25] MEDS: traZODone HCL 100 MG TABLET (FP) PO SCH (21:21)
[2018-05-25] MEDS: THIAMINE HCL 100 MG TABLET (FP) PO SCH (21:21)
[2018-05-25] MEDS: TAMSULOSIN HCL 0.4 MG CAP PO SCH (21:21)
[2018-05-25] MEDS: MELATONIN 5 MG TABLETS PO PRN (21:21)
[2018-05-25] MEDS: LATANOPROST 0.005% OPHTH SOLN 2.5ML BOTTLE OU SCH (21:22)
[2018-05-26] MEDS: CYCLOBENZAPRINE HCL 5 MG TABLET PO SCH (05:49)
[2018-05-26] MEDS: metFORMIN HCL 500 MG TABLET (FP) PO SCH (06:45)
[2018-05-26 06:46] VITALS: BP 127/88; PULSE 95; TEMP 98.2
[2018-05-26] MEDS: PRENATAL VITAMINS W/ FOLIC ACID TABLET (FP) PO SCH (10:19)
--- NOTE | 2018-05-26 10:19 | PN ---
[facility] Progress Note Note: Patient is discharged today. Scripts for 30 days supply of medications(Abilify 5 mg po daily & Trazadone 100 mg po HS) are electronicaly transmitted to [facility] at [address] [place], [place] [id number]
[2018-05-26] MEDS: ARIPiprazole 5 MG TABLET (FP) PO SCH (10:20)
[2018-05-26] MEDS ORDERED: PT OWN MED DRAWER 7, Y5N ONE (10:21)
[2018-05-26] MEDS: TIMOLOL 0.5% OPHTHALMIC SOL 5 ML BOTTLE OD SCH (10:21)
== END 2018-05-26 12:30 | disposition home or self-care (01) | DRG 895 ==
LOC: YASAS 11:31 → Y3N 15:43 → Y3W 04-30 13:21
PROVIDERS: ADMIT Neuromusculoskeletal Medicine & OMM; ATTEND Psychiatry & Neurology Psychiatry
PROC: HZ2ZZZZ Detoxification Services for Substance Abuse Treatment (ICD-10-PCS; 2018-04-26)
PROC: HZ42ZZZ Group Counseling for Substance Abuse Treatment, Cognitive-Behavioral (ICD-10-PCS; principal; 2018-04-30)
DX: F10.20 Alcohol dependence, uncomplicated (principal); F14.20 Cocaine dependence, uncomplicated; F19.282 Other psychoactive substance dependence with psychoactive substance-induced sleep disorder; F12.10 Cannabis abuse, uncomplicated; F17.210 Nicotine dependence, cigarettes, uncomplicated; F19.24 Other psychoactive substance dependence with psychoactive substance-induced mood disorder; F31.9 Bipolar disorder, unspecified; G47.00 Insomnia, unspecified; H40.9 Unspecified glaucoma; E11.9 Type 2 diabetes mellitus without complications; Z79.84 Long term (current) use of oral hypoglycemic drugs; M54.42 Lumbago with sciatica, left side; N40.0 Benign prostatic hyperplasia without lower urinary tract symptoms; Z91.19 Patient's noncompliance with other medical treatment and regimen
CPT/HCPCS: 36415; 80048; 80053; 81003; 81015; 82962; 85027; 86593

== ENCOUNTER 2018-08-03 16:50 | Inpatient (IN) | payer OTHER ==
[2018-08-03 21:54] VITALS: BMI 36.6
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
[2018-08-03] MEDS ORDERED: MENTHOL/PHENOL 1 EACH UD MM PRN (23:46)
[2018-08-03] MEDS ORDERED: MAGNESIUM CITRATE 300 ML BOTTLE PO PRN (23:46)
[2018-08-03] MEDS ORDERED: MAG HYDROX/AL HYDROX/SIMETH 30 ML UNIT-DOSE CUP PO PRN (23:46)
[2018-08-03] MEDS ORDERED: METHOCARBAMOL 500 MG TABLET PO PRN (23:46)
[2018-08-03] MEDS ORDERED: ACETAMINOPHEN 325 MG TABLET (FP) PO PRN ×2 (23:46)
[2018-08-03] MEDS ORDERED: hydrOXYzine PAMOATE 25 MG CAPSULE (FP) PO PRN (23:46)
[2018-08-03] MEDS ORDERED: MAGNESIUM HYDROX 2400MG/30ML ORAL SUSPENSION 30 ML CUP PO PRN (23:46)
[2018-08-03] MEDS ORDERED: chlordiazePOXIDE HCL 25 MG CAPSULE PO PRN (23:48)
[2018-08-04] MEDS: chlordiazePOXIDE HCL 25 MG CAPSULE PO SCH ×5 (00:48→22:34)
[2018-08-04] MEDS: metFORMIN HCL 500 MG TABLET (FP) PO SCH ×2 (07:48→17:23)
--- NOTE | 2018-08-04 10:13 | PN ---
S CIWA - CIWA Score Nausea/Vomitin-No Nausea/No Vomiting Muscle Tremors: 3 Anxiety: 3 Agitation: 3 Paroxysmal Sweats: 3 Orientation: 0-Oriented Tacttile Disturbances: 0-None Auditory Disturbances: 0-None Visual Disturbances: 0-None Headache: 0-None Present CIWA-Ar Total Score: 12 BHS Progress Note (SOAP) Subjective: body aches sweats interrupted sleep Objective: 08/04/18 10:12 Vital Signs Temperature 97.9 F 08/04/18 09:55 Pulse Rate 88 08/04/18 09:55 Respiratory Rate 20 08/04/18 09:55 Blood Pressure 137/75 08/04/18 09:55 O2 Sat by Pulse Oximetry (%) Laboratory Tests 08/04/18 06:00 POC Glucometer 202 rest of labs pending aaox3 ambulating no acute distress Assessment: 08/04/18 10:13 withdrawal sx Plan: continue detox increase fluids pending labs
[2018-08-04] MEDS: NICOTINE 14 MG/24 HOURS TOPICAL PATCH TD SCH (10:38)
[2018-08-04] MEDS: PRENATAL VITAMINS W/ FOLIC ACID TABLET (FP) PO SCH (10:40)
[2018-08-04] MEDS: BISMUTH SUBSALICYLATE 524 MG/30 ML UD PO PRN (10:43)
[2018-08-04 12:48] LABS: ALBUMIN 4.1 g/dl (3.4-5.0); ALK PHOS 92 U/L (45-117); ANION GAP 6 MMOL/L (8-16); BILIRUBIN,TOTAL 0.4 mg/dL (0.2-1); BLOOD UREA NITROGEN 11 mg/dL (7-18); CHLORIDE 101 mmol/L (98-107); CO2 31 mmol/L (21-32); CREATININE 0.9 mg/dL (0.55-1.3); GLUCOSE,RANDOM 206 mg/dL (74-106); POTASSIUM 4.2 mmol/L (3.5-5.1); SGOT/AST 10 U/L (15-37); SGPT/ALT 19 U/L (13-61); SODIUM 137 mmol/L (136-145); TOT PROT 7.4 g/dl (6.4-8.2)
[2018-08-04 12:52] LABS: HEMATOCRIT 42.4 % (35.4-49); HEMOGLOBIN 14.2 GM/dL (11.7-16.9); MCH 29.6 pg (25.7-33.7); MCHC 33.4 g/dl (32.0-35.9); MEAN CELL VOLUME 88.6 fl (80-96); MEAN PLT VOLUME 8.8 fl (7.5-11.1); PLATELET COUNT 259 K/MM3 (134-434); RBC 4.79 M/mm3 (4.00-5.60); RDW 13.9 % (11.9-15.9); WHITE BLOOD COUNT 4.5 K/mm3 (4.0-10.0)
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
[2018-08-04] MEDS: THIAMINE HCL 100 MG TABLET (FP) PO SCH (22:34)
[2018-08-04] MEDS: traZODone HCL 50 MG TABLET (FP) PO SCH (22:35)
[2018-08-05] MEDS: chlordiazePOXIDE HCL 25 MG CAPSULE PO SCH ×3 (05:44→18:03)
[2018-08-05] MEDS: metFORMIN HCL 500 MG TABLET (FP) PO SCH ×2 (07:17→18:02)
[2018-08-05] MEDS: ARIPiprazole 5 MG TABLET (FP) PO SCH (10:31)
[2018-08-05] MEDS: NICOTINE 14 MG/24 HOURS TOPICAL PATCH TD SCH (10:31)
[2018-08-05] MEDS: PRENATAL VITAMINS W/ FOLIC ACID TABLET (FP) PO SCH (10:31)
[2018-08-05] MEDS: BISMUTH SUBSALICYLATE 524 MG/30 ML UD PO PRN (10:34)
--- NOTE | 2018-08-05 11:26 | PN ---
[facility] CIWA - CIWA Score Nausea/Vomitin-No Nausea/No Vomiting Muscle Tremors: 3 Anxiety: 2 Agitation: 3 Paroxysmal Sweats: 3 Orientation: 0-Oriented Tacttile Disturbances: 0-None Auditory Disturbances: 0-None Visual Disturbances: 0-None Headache: 0-None Present CIWA-Ar Total Score: 11 S Progress Note (SOAP) Subjective: body aches tired sweats interrupted sleep Objective: 08/05/18 11:25 Vital Signs Temperature 98.2 F 08/05/18 09:21 Pulse Rate 94 H 08/05/18 09:21 Respiratory Rate 18 08/05/18 09:21 Blood Pressure 116/75 08/05/18 09:21 O2 Sat by Pulse Oximetry (%) Laboratory Tests 08/04/18 08/04/18 08/04/18 06:00 07:30 07:30 WBC 4.5 RBC 4.79 Hgb 14.2 Hct 42.4 MCV 88.6 MCH 29.6 MCHC 33.4 RDW 13.9 Plt Count 259 MPV 8.8 Sodium 137 Potassium 4.2 Chloride 101 Carbon Dioxide 31 Anion Gap 6 L BUN 11 Creatinine 0.9 Creat Clearance w eGFR 89.32 POC Glucometer 202 Random Glucose 206 H Calcium 9.0 Total Bilirubin 0.4 AST 10 L ALT 19 Alkaline Phosphatase 92 Total Protein 7.4 Albumin 4.1 RPR Titer 08/04/18 08/04/18 08/05/18 07:30 16:39 05:42 WBC RBC Hgb Hct MCV MCH MCHC RDW Plt Count MPV Sodium Potassium Chloride Carbon Dioxide Anion Gap BUN Creatinine Creat Clearance w eGFR POC Glucometer 154 198 Random Glucose Calcium Total Bilirubin AST ALT Alkaline Phosphatase Total Protein Albumin RPR Titer Nonreactive aaox3 ambulating no acute distress Assessment: 08/05/18 11:25 withdrawal sx Plan: increase fluids continue detox
[2018-08-05] MEDS: THIAMINE HCL 100 MG TABLET (FP) PO SCH (22:10)
[2018-08-05] MEDS: chlordiazePOXIDE HCL 10 MG CAPSULE PO SCH (22:10)
[2018-08-05] MEDS: traZODone HCL 50 MG TABLET (FP) PO SCH (22:10)
[2018-08-05] MEDS ORDERED: chlordiazePOXIDE HCL 10 MG CAPSULE PO PRN (23:00)
[2018-08-06] MEDS: chlordiazePOXIDE HCL 10 MG CAPSULE PO SCH ×4 (06:05→22:43)
[2018-08-06] MEDS: metFORMIN HCL 500 MG TABLET (FP) PO SCH ×2 (06:59→17:02)
[2018-08-06] MEDS: ARIPiprazole 5 MG TABLET (FP) PO SCH (10:11)
[2018-08-06] MEDS: NICOTINE 14 MG/24 HOURS TOPICAL PATCH TD SCH (10:11)
[2018-08-06] MEDS: PRENATAL VITAMINS W/ FOLIC ACID TABLET (FP) PO SCH (10:11)
--- NOTE | 2018-08-06 10:37 | PN ---
[facility] Progress Note (SOAP) Subjective: body aches sweats Objective: 08/06/18 10:36 Vital Signs Temperature 98.1 F 08/06/18 09:53 Pulse Rate 92 H 08/06/18 09:53 Respiratory Rate 18 08/06/18 09:53 Blood Pressure 113/79 08/06/18 09:53 O2 Sat by Pulse Oximetry (%) aaox3 ambulating no acute distress Assessment: 08/06/18 10:36 mild withdrawal sx Plan: continue detox increase fluids robaxin prn d/c for Thursday order placed
[2018-08-06] MEDS: traZODone HCL 50 MG TABLET (FP) PO SCH (22:44)
[2018-08-06] MEDS: THIAMINE HCL 100 MG TABLET (FP) PO SCH (22:44)
[2018-08-07] MEDS: metFORMIN HCL 500 MG TABLET (FP) PO SCH ×2 (06:25→16:57)
[2018-08-07] MEDS: ARIPiprazole 5 MG TABLET (FP) PO SCH (10:19)
[2018-08-07] MEDS: PRENATAL VITAMINS W/ FOLIC ACID TABLET (FP) PO SCH (10:19)
[2018-08-07] MEDS: chlordiazePOXIDE HCL 10 MG CAPSULE PO SCH ×2 (10:19→22:29)
[2018-08-07] MEDS: NICOTINE 14 MG/24 HOURS TOPICAL PATCH TD SCH (10:20)
--- NOTE | 2018-08-07 11:53 | PN ---
BHS Progress Note (SOAP) Subjective: c/o interrupted sleep and sweats. Objective: 08/07/18 11:52 Vital Signs 08/07/18 08/07/18 08:20 09:56 Temperature 97.9 F 98.1 F Pulse Rate 101 H 93 H Respiratory 20 18 Rate Blood Pressure 124/88 119/68 Assessment: 08/07/18 11:52 AOX3, in no respiratory distress. mild withdrawal symptoms. Plan: continue detox.
[2018-08-07] MEDS: THIAMINE HCL 100 MG TABLET (FP) PO SCH (22:29)
[2018-08-07] MEDS: traZODone HCL 50 MG TABLET (FP) PO SCH (22:29)
[2018-08-08] MEDS: metFORMIN HCL 500 MG TABLET (FP) PO SCH ×2 (06:01→16:50)
[2018-08-08] MEDS: PRENATAL VITAMINS W/ FOLIC ACID TABLET (FP) PO SCH (09:40)
[2018-08-08] MEDS: ARIPiprazole 5 MG TABLET (FP) PO SCH (09:40)
[2018-08-08] MEDS: NICOTINE 14 MG/24 HOURS TOPICAL PATCH TD SCH (09:41)
[2018-08-08] MEDS: THIAMINE HCL 100 MG TABLET (FP) PO SCH (21:19)
[2018-08-08] MEDS: traZODone HCL 50 MG TABLET (FP) PO SCH (21:20)
[2018-08-08] MEDS: MELATONIN 5 MG TABLETS PO PRN (21:20)
[2018-08-09] MEDS: metFORMIN HCL 500 MG TABLET (FP) PO SCH ×2 (06:31→16:30)
[2018-08-09] MEDS: PRENATAL VITAMINS W/ FOLIC ACID TABLET (FP) PO SCH (10:23)
[2018-08-09] MEDS: ARIPiprazole 5 MG TABLET (FP) PO SCH (10:24)
[2018-08-09] MEDS: NICOTINE 14 MG/24 HOURS TOPICAL PATCH TD SCH (10:24)
[2018-08-09] MEDS ORDERED: PNEUMOC 13-VAL CONJ-DIP CRM/PF 0.5 ML DISP.SYRIN IM ONE (12:00)
[2018-08-09] MEDS: THIAMINE HCL 100 MG TABLET (FP) PO SCH (21:16)
[2018-08-09] MEDS: traZODone HCL 50 MG TABLET (FP) PO SCH (21:17)
[2018-08-09] MEDS: MELATONIN 5 MG TABLETS PO PRN (21:17)
[2018-08-10] MEDS: metFORMIN HCL 500 MG TABLET (FP) PO SCH ×2 (06:42→16:40)
[2018-08-10] MEDS: PRENATAL VITAMINS W/ FOLIC ACID TABLET (FP) PO SCH (10:26)
[2018-08-10] MEDS: ARIPiprazole 5 MG TABLET (FP) PO SCH (10:29)
[2018-08-10] MEDS: NICOTINE 14 MG/24 HOURS TOPICAL PATCH TD SCH (10:30)
[2018-08-10] MEDS: TIMOLOL 0.5% OPHTHALMIC SOL 5 ML BOTTLE OD SCH (14:24)
--- NOTE | 2018-08-10 21:00 | PN ---
[facility] Progress Note Note: pt states he takes Lantus 18 units at night- will give pt 15 units of levemir qhs and monitor
[2018-08-10] MEDS: traZODone HCL 50 MG TABLET (FP) PO SCH (21:33)
[2018-08-10] MEDS: THIAMINE HCL 100 MG TABLET (FP) PO SCH (21:34)
[2018-08-10] MEDS: LATANOPROST 0.005% OPHTH SOLN 2.5ML BOTTLE OU SCH (21:35)
[2018-08-10] MEDS: INSULIN (LEVEMIR) 100 UNITS/ML UNITS SQ SCH ×2 (22:18→22:50)
[2018-08-11] MEDS: metFORMIN HCL 500 MG TABLET (FP) PO SCH ×2 (06:27→16:39)
[2018-08-11] MEDS: ARIPiprazole 5 MG TABLET (FP) PO SCH (10:27)
[2018-08-11] MEDS: PRENATAL VITAMINS W/ FOLIC ACID TABLET (FP) PO SCH (10:27)
[2018-08-11] MEDS: NICOTINE 14 MG/24 HOURS TOPICAL PATCH TD SCH (10:28)
[2018-08-11] MEDS: TAMSULOSIN HCL 0.4 MG CAP PO SCH (10:28)
[2018-08-11] MEDS: TIMOLOL 0.5% OPHTHALMIC SOL 5 ML BOTTLE OD SCH (10:29)
--- NOTE | 2018-08-11 16:45 | PN ---
Psychiatric Progress Note Vital Signs: Vital Signs Period Temp Pulse Resp BP Sys/Godinez Pulse Ox Last 24 Hr 98.1 F 91 18-20 126/84 Date of Session: 08/11/18 Chief Complaint:: " I want my prozac." HPI: This is day 8 of rehab. Patient requesting to resume prozac 20mg. ROS: Patient coherent, alert and oriented X3. Current Medications: Active Medications Generic Name Dose Route Start Last Admin Trade Name Kallie PRN Reason Stop Dose Admin Acetaminophen 650 mg 08/03/18 23:46 08/10/18 10:26 Tylenol - PO 650 mg Q6H PRN Administration PAIN LEVEL 4 - 6 Acetaminophen 650 mg 08/03/18 23:46 Tylenol - PO Q6H PRN FEVER Al Hydroxide/Mg Hydroxide 30 ml 08/03/18 23:46 Mylanta Oral Suspension - PO Q6H PRN DYSPEPSIA Aripiprazole 5 mg 08/05/18 10:00 08/11/18 10:27 Abilify PO 5 mg DAILY FLAKITO Administration Bismuth Subsalicylate 524 mg 08/03/18 23:46 08/05/18 10:34 Pepto-Bismol - PO 524 mg Q1H PRN Administration DIARRHEA Ibuprofen 400 mg 08/03/18 23:46 Motrin - PO Q6H PRN PAIN LEVEL 1 - 3 Insulin Detemir 15 units 08/10/18 19:00 08/10/18 22:50 Levemir Vial SQ Not Given HS FLAKITO Latanoprost 1 drop 08/10/18 22:00 08/10/18 21:35 Xalatan 0.005% Eye Drops - OU 1 drop HS FLAKITO Administration Magnesium Citrate 300 ml 08/03/18 23:46 Citroma - PO Q48H PRN CONSTIPATION Magnesium Hydroxide 30 ml 08/03/18 23:46 Milk Of Magnesia - PO PRN PRN CONSTIPATION Melatonin 5 mg 08/03/18 23:46 08/09/18 21:17 Melatonin PO 5 mg HS PRN Administration INSOMNIA Metformin HCl 1,000 mg 08/04/18 07:15 08/11/18 16:39 Glucophage - PO 1,000 mg BIDAC FLAKITO Administration Nicotine 14 mg 08/04/18 10:00 08/11/18 10:28 Nicoderm Patch - TD Not Given DAILY FLAKITO Nicotine Polacrilex 2 mg 08/03/18 23:46 Nicorette Gum - BUC Q2H PRN NICOTINE REPLACEMENT RX Pneumococcal Polyvalent Vaccine 0.5 ml 08/10/19 10:00 Pneumovax - IM 08/10/19 10:01 .ONCE ONE Multivit/Folic Acid/Iron 1 tab 08/04/18 10:00 08/11/18 10:27 Vitamins (Sjr) - PO 1 tab DAILY FLAKITO Administration Tamsulosin HCl 0.4 mg 08/11/18 10:15 08/11/18 10:28 Flomax - PO 0.4 mg DAILY@0830 FLAKITO Administration Thiamine HCl 100 mg 08/04/18 22:00 08/10/18 21:34 Vitamin B1 - PO 100 mg HS FLAKITO Administration Timolol Maleate 1 drop 08/10/18 11:45 08/11/18 10:29 Timoptic 0.5% OD 1 drop DAILY FLAKITO Administration Trazodone HCl 50 mg 08/04/18 22:00 08/10/18 21:33 Desyrel - PO 50 mg HS FLAKITO Administration Medication(s) Change(s): Will increase Trazodone 50mg to 100mg HS. Current Side Effect: No Lab tests ordered: No Lab tests reviewed: Yes Provider note:: Patient requesting to be resumed on Prozac 20mg. Dr. Palacios note read and appreciated. [facility] pharmacy contacted at [phone] and able to speak to pharmacy staff. As per pharmacy staff patient has never received prozac from this pharmacy. He last received trazodone 100mg in February of 2018 and his prescription of abilify 5mg was cancelled in April. Patient informed of what transpired after speaking to [facility] pharmacy and than stated that he received prozac from a different pharmacy named [facility] pharmacy but is unaware of location and phone number. Patient unable to provide accurate information. Patient also c/o insomnia. At this time there is no clinical indication to order Prozac. Patient reports stable mood. Will d/c trazodone 50mg and order Trazodone 100mg. Benefits and side effects discussed. Verbal consent given. Total face to face time:: 25 Mental Status Exam - Mental Status Exam Alert and Oriented to: Time, Place, Person Cognitive Function: Good Patient Appearance: Well Groomed Mood: Euthymic Affect: Appropriate Patient Behavior: Cooperative Speech Pattern: Appropriate Voice Loudness: Moderately Soft/Quiet Thought Process: Goal Oriented Thought Disorder: Not Present Hallucinations: Denies Suicidal Ideation: Denies Homicidal Ideation: Denies Insight/Judgement: Poor Sleep: Poorly Appetite: Fair Muscle strength/Tone: Normal Gait/Station: Normal Psychiatric Treatment Plan - Problem List (1) Alcohol dependence Qualifiers: Substance use status: uncomplicated Qualified Code(s): F10.20 - Alcohol dependence, uncomplicated Comment: .. (2) Cocaine dependence Comment: .. (3) History of bipolar disorder Comment: .. (4) Nicotine dependence Qualifiers: Nicotine product type: cigarettes Substance use status: uncomplicated Qualified Code(s): F17.210 - Nicotine dependence, cigarettes, uncomplicated Comment: .. (5) Insomnia Comment: .. (6) Non-compliant patient Comment: ..
[2018-08-11] MEDS: THIAMINE HCL 100 MG TABLET (FP) PO SCH (21:34)
[2018-08-11] MEDS: traZODone HCL 50 MG TABLET (FP) PO SCH (21:35)
[2018-08-11] MEDS: INSULIN (LEVEMIR) 100 UNITS/ML UNITS SQ SCH (21:36)
[2018-08-11] MEDS: MELATONIN 5 MG TABLETS PO PRN (21:37)
[2018-08-11] MEDS: LATANOPROST 0.005% OPHTH SOLN 2.5ML BOTTLE OU SCH (21:40)
[2018-08-12] MEDS: metFORMIN HCL 500 MG TABLET (FP) PO SCH ×2 (06:47→16:33)
[2018-08-12] MEDS: ARIPiprazole 5 MG TABLET (FP) PO SCH (10:50)
[2018-08-12] MEDS: PRENATAL VITAMINS W/ FOLIC ACID TABLET (FP) PO SCH (10:50)
[2018-08-12] MEDS: TAMSULOSIN HCL 0.4 MG CAP PO SCH (10:50)
[2018-08-12] MEDS: IBUPROFEN 400 MG TABLET (FP) PO PRN ×2 (10:50→19:32)
[2018-08-12] MEDS: TIMOLOL 0.5% OPHTHALMIC SOL 5 ML BOTTLE OD SCH (10:53)
[2018-08-12] MEDS: NICOTINE 14 MG/24 HOURS TOPICAL PATCH TD SCH (10:54)
[2018-08-12] MEDS: traZODone HCL 50 MG TABLET (FP) PO SCH (21:28)
[2018-08-12] MEDS: THIAMINE HCL 100 MG TABLET (FP) PO SCH (21:29)
[2018-08-12] MEDS: INSULIN (LEVEMIR) 100 UNITS/ML UNITS SQ SCH (21:29)
[2018-08-12] MEDS: LATANOPROST 0.005% OPHTH SOLN 2.5ML BOTTLE OU SCH (21:29)
[2018-08-12] MEDS: MELATONIN 5 MG TABLETS PO PRN (21:30)
[2018-08-13] MEDS: metFORMIN HCL 500 MG TABLET (FP) PO SCH ×2 (06:21→16:54)
--- NOTE | 2018-08-13 06:33 | PN ---
[facility] Progress Note Note: Patient is scheduled for discharge today. Scripts for 30 days supply of medications(Abilify 5 mg/day, Trazadone 100 mg/hs) are electronically transmitted to [facility] [place] [address]
[2018-08-13] MEDS: TAMSULOSIN HCL 0.4 MG CAP PO SCH (09:30)
[2018-08-13] MEDS: NICOTINE 14 MG/24 HOURS TOPICAL PATCH TD SCH (10:18)
[2018-08-13] MEDS: ARIPiprazole 5 MG TABLET (FP) PO SCH (10:18)
[2018-08-13] MEDS: PRENATAL VITAMINS W/ FOLIC ACID TABLET (FP) PO SCH (10:18)
[2018-08-13] MEDS: TIMOLOL 0.5% OPHTHALMIC SOL 5 ML BOTTLE OD SCH (10:19)
--- NOTE | 2018-08-13 16:17 | PN ---
[facility] Progress Note Note: PT C/O ARTHRITIS JOINT PAIN AND GENERALIZED PAIN.REPORTS HE TAKES PERCOCETS FOR PAIN. Vital Signs - 24 hr 08/13/18 08/13/18 03:30 06:44 Temperature 97.5 F L Pulse Rate 86 Respiratory 18 20 Rate Blood Pressure 125/85 Laboratory Tests 08/04/18 08/04/18 08/04/18 06:00 07:30 07:30 WBC 4.5 RBC 4.79 Hgb 14.2 Hct 42.4 MCV 88.6 MCH 29.6 MCHC 33.4 RDW 13.9 Plt Count 259 MPV 8.8 Sodium 137 Potassium 4.2 Chloride 101 Carbon Dioxide 31 Anion Gap 6 L BUN 11 Creatinine 0.9 Creat Clearance w eGFR 89.32 POC Glucometer 202 Random Glucose 206 H Calcium 9.0 Total Bilirubin 0.4 AST 10 L ALT 19 Alkaline Phosphatase 92 Total Protein 7.4 Albumin 4.1 RPR Titer 08/04/18 08/04/18 08/05/18 07:30 16:39 05:42 WBC RBC Hgb Hct MCV MCH MCHC RDW Plt Count MPV Sodium Potassium Chloride Carbon Dioxide Anion Gap BUN Creatinine Creat Clearance w eGFR POC Glucometer 154 198 Random Glucose Calcium Total Bilirubin AST ALT Alkaline Phosphatase Total Protein Albumin RPR Titer Nonreactive 08/05/18 08/06/18 08/06/18 16:42 06:03 16:26 WBC RBC Hgb Hct MCV MCH MCHC RDW Plt Count MPV Sodium Potassium Chloride Carbon Dioxide Anion Gap BUN Creatinine Creat Clearance w eGFR POC Glucometer 250 195 181 Random Glucose Calcium Total Bilirubin AST ALT Alkaline Phosphatase Total Protein Albumin RPR Titer 08/07/18 08/07/18 08/08/18 06:25 16:54 06:00 WBC RBC Hgb Hct MCV MCH MCHC RDW Plt Count MPV Sodium Potassium Chloride Carbon Dioxide Anion Gap BUN Creatinine Creat Clearance w eGFR POC Glucometer 185 276 181 Random Glucose Calcium Total Bilirubin AST ALT Alkaline Phosphatase Total Protein Albumin RPR Titer 08/09/18 08/10/18 08/10/18 06:30 06:41 16:40 WBC RBC Hgb Hct MCV MCH MCHC RDW Plt Count MPV Sodium Potassium Chloride Carbon Dioxide Anion Gap BUN Creatinine Creat Clearance w eGFR POC Glucometer 223 241 295 Random Glucose Calcium Total Bilirubin AST ALT Alkaline Phosphatase Total Protein Albumin RPR Titer 08/10/18 08/11/1808/11/19 21:33 06:26 20:32 WBC RBC Hgb Hct MCV MCH MCHC RDW Plt Count MPV Sodium Potassium Chloride Carbon Dioxide Anion Gap BUN Creatinine Creat Clearance w eGFR POC Glucometer 219 244 248 Random Glucose Calcium Total Bilirubin AST ALT Alkaline Phosphatase Total Protein Albumin RPR Titer 08/12/18 08/12/18 08/12/18 06:44 16:33 20:43 WBC RBC Hgb Hct MCV MCH MCHC RDW Plt Count MPV Sodium Potassium Chloride Carbon Dioxide Anion Gap BUN Creatinine Creat Clearance w eGFR POC Glucometer 211 208 255 Random Glucose Calcium Total Bilirubin AST ALT Alkaline Phosphatase Total Protein Albumin RPR Titer 08/13/18 06:20 WBC RBC Hgb Hct MCV MCH MCHC RDW Plt Count MPV Sodium Potassium Chloride Carbon Dioxide Anion Gap BUN Creatinine Creat Clearance w eGFR POC Glucometer 167 Random Glucose Calcium Total Bilirubin AST ALT Alkaline Phosphatase Total Protein Albumin RPR Titer A:OBESITY HX ARTHRITIS PLAN:INCREASE MOTRIN 600 MG PO Q6H PRN ROBAXIN 500 MG PO TID INCREASE PO FLUIDS.
[2018-08-13] MEDS: IBUPROFEN 600 MG TABLET (FP) PO PRN (16:56)
[2018-08-13] MEDS: METHOCARBAMOL 500 MG TABLET PO SCH (21:38)
[2018-08-13] MEDS: THIAMINE HCL 100 MG TABLET (FP) PO SCH (21:38)
[2018-08-13] MEDS: INSULIN (LEVEMIR) 100 UNITS/ML UNITS SQ SCH (21:38)
[2018-08-13] MEDS: traZODone HCL 50 MG TABLET (FP) PO SCH (21:38)
[2018-08-13] MEDS: LATANOPROST 0.005% OPHTH SOLN 2.5ML BOTTLE OU SCH (21:39)
[2018-08-14] MEDS: METHOCARBAMOL 500 MG TABLET PO SCH ×3 (06:04→21:31)
[2018-08-14] MEDS: metFORMIN HCL 500 MG TABLET (FP) PO SCH ×2 (06:04→16:35)
[2018-08-14] MEDS: ARIPiprazole 5 MG TABLET (FP) PO SCH (10:08)
[2018-08-14] MEDS: PRENATAL VITAMINS W/ FOLIC ACID TABLET (FP) PO SCH (10:08)
[2018-08-14] MEDS: TAMSULOSIN HCL 0.4 MG CAP PO SCH (10:09)
[2018-08-14] MEDS: IBUPROFEN 600 MG TABLET (FP) PO PRN (10:09)
[2018-08-14] MEDS: TIMOLOL 0.5% OPHTHALMIC SOL 5 ML BOTTLE OD SCH (10:10)
[2018-08-14] MEDS: NICOTINE 14 MG/24 HOURS TOPICAL PATCH TD SCH (10:11)
[2018-08-14] MEDS: NICOTINE POLACRILEX 2 MG GUM BUC PRN (18:20)
[2018-08-14] MEDS: THIAMINE HCL 100 MG TABLET (FP) PO SCH (21:31)
[2018-08-14] MEDS: INSULIN (LEVEMIR) 100 UNITS/ML UNITS SQ SCH (21:32)
[2018-08-14] MEDS: traZODone HCL 50 MG TABLET (FP) PO SCH (21:32)
[2018-08-14] MEDS: LATANOPROST 0.005% OPHTH SOLN 2.5ML BOTTLE OU SCH (21:34)
[2018-08-15] MEDS: METHOCARBAMOL 500 MG TABLET PO SCH ×3 (06:33→21:22)
[2018-08-15] MEDS: metFORMIN HCL 500 MG TABLET (FP) PO SCH ×2 (06:33→16:31)
[2018-08-15] MEDS: PRENATAL VITAMINS W/ FOLIC ACID TABLET (FP) PO SCH (10:08)
[2018-08-15] MEDS: TAMSULOSIN HCL 0.4 MG CAP PO SCH (10:08)
[2018-08-15] MEDS: ARIPiprazole 5 MG TABLET (FP) PO SCH (10:08)
[2018-08-15] MEDS: TIMOLOL 0.5% OPHTHALMIC SOL 5 ML BOTTLE OD SCH (10:09)
[2018-08-15] MEDS: IBUPROFEN 600 MG TABLET (FP) PO PRN (10:09)
[2018-08-15] MEDS: NICOTINE 14 MG/24 HOURS TOPICAL PATCH TD SCH (10:10)
[2018-08-15] MEDS: LATANOPROST 0.005% OPHTH SOLN 2.5ML BOTTLE OU SCH (21:22)
[2018-08-15] MEDS: traZODone HCL 50 MG TABLET (FP) PO SCH (21:22)
[2018-08-15] MEDS: INSULIN (LEVEMIR) 100 UNITS/ML UNITS SQ SCH (21:22)
[2018-08-15] MEDS: THIAMINE HCL 100 MG TABLET (FP) PO SCH (21:22)
[2018-08-15] MEDS: MELATONIN 5 MG TABLETS PO PRN (21:23)
[2018-08-16] MEDS: metFORMIN HCL 500 MG TABLET (FP) PO SCH ×2 (06:19→16:28)
[2018-08-16] MEDS: METHOCARBAMOL 500 MG TABLET PO SCH ×3 (06:20→21:25)
[2018-08-16] MEDS: NICOTINE POLACRILEX 2 MG GUM BUC PRN (06:44)
[2018-08-16] MEDS: PRENATAL VITAMINS W/ FOLIC ACID TABLET (FP) PO SCH (10:30)
[2018-08-16] MEDS: IBUPROFEN 600 MG TABLET (FP) PO PRN (10:31)
[2018-08-16] MEDS: TAMSULOSIN HCL 0.4 MG CAP PO SCH (10:31)
[2018-08-16] MEDS: ARIPiprazole 5 MG TABLET (FP) PO SCH (10:31)
[2018-08-16] MEDS: TIMOLOL 0.5% OPHTHALMIC SOL 5 ML BOTTLE OD SCH (10:33)
[2018-08-16] MEDS: NICOTINE 14 MG/24 HOURS TOPICAL PATCH TD SCH (10:34)
[2018-08-16] MEDS: THIAMINE HCL 100 MG TABLET (FP) PO SCH (21:25)
[2018-08-16] MEDS: INSULIN (LEVEMIR) 100 UNITS/ML UNITS SQ SCH (21:25)
[2018-08-16] MEDS: traZODone HCL 50 MG TABLET (FP) PO SCH (21:25)
[2018-08-16] MEDS: MELATONIN 5 MG TABLETS PO PRN (21:26)
[2018-08-16] MEDS: LATANOPROST 0.005% OPHTH SOLN 2.5ML BOTTLE OU SCH (21:26)
[2018-08-17] MEDS: metFORMIN HCL 500 MG TABLET (FP) PO SCH ×2 (06:12→16:34)
[2018-08-17] MEDS: METHOCARBAMOL 500 MG TABLET PO SCH ×3 (06:12→21:29)
[2018-08-17] MEDS: TIMOLOL 0.5% OPHTHALMIC SOL 5 ML BOTTLE OD SCH (10:02)
[2018-08-17] MEDS: ARIPiprazole 5 MG TABLET (FP) PO SCH (10:02)
[2018-08-17] MEDS: TAMSULOSIN HCL 0.4 MG CAP PO SCH (10:02)
[2018-08-17] MEDS: PRENATAL VITAMINS W/ FOLIC ACID TABLET (FP) PO SCH (10:02)
[2018-08-17] MEDS: NICOTINE 14 MG/24 HOURS TOPICAL PATCH TD SCH (10:03)
[2018-08-17] MEDS: traZODone HCL 50 MG TABLET (FP) PO SCH (21:29)
[2018-08-17] MEDS: MELATONIN 5 MG TABLETS PO PRN (21:29)
[2018-08-17] MEDS: THIAMINE HCL 100 MG TABLET (FP) PO SCH (21:29)
[2018-08-17] MEDS: INSULIN (LEVEMIR) 100 UNITS/ML UNITS SQ SCH (21:31)
[2018-08-17] MEDS: LATANOPROST 0.005% OPHTH SOLN 2.5ML BOTTLE OU SCH (21:32)
[2018-08-18] MEDS: metFORMIN HCL 500 MG TABLET (FP) PO SCH ×2 (06:47→16:25)
[2018-08-18] MEDS: METHOCARBAMOL 500 MG TABLET PO SCH ×3 (06:48→21:28)
[2018-08-18] MEDS: PRENATAL VITAMINS W/ FOLIC ACID TABLET (FP) PO SCH (10:17)
[2018-08-18] MEDS: NICOTINE 14 MG/24 HOURS TOPICAL PATCH TD SCH (10:17)
[2018-08-18] MEDS: TAMSULOSIN HCL 0.4 MG CAP PO SCH (10:17)
[2018-08-18] MEDS: ARIPiprazole 5 MG TABLET (FP) PO SCH (10:17)
[2018-08-18] MEDS: TIMOLOL 0.5% OPHTHALMIC SOL 5 ML BOTTLE OD SCH (10:18)
[2018-08-18] MEDS: MELATONIN 5 MG TABLETS PO PRN (21:28)
[2018-08-18] MEDS: THIAMINE HCL 100 MG TABLET (FP) PO SCH (21:28)
[2018-08-18] MEDS: LATANOPROST 0.005% OPHTH SOLN 2.5ML BOTTLE OU SCH (21:29)
[2018-08-18] MEDS: traZODone HCL 50 MG TABLET (FP) PO SCH (21:29)
[2018-08-18] MEDS: INSULIN (LEVEMIR) 100 UNITS/ML UNITS SQ SCH (21:30)
[2018-08-19] MEDS: METHOCARBAMOL 500 MG TABLET PO SCH ×3 (06:19→21:27)
[2018-08-19] MEDS: metFORMIN HCL 500 MG TABLET (FP) PO SCH ×2 (07:24→16:18)
[2018-08-19] MEDS: PRENATAL VITAMINS W/ FOLIC ACID TABLET (FP) PO SCH (10:03)
[2018-08-19] MEDS: NICOTINE 14 MG/24 HOURS TOPICAL PATCH TD SCH (10:03)
[2018-08-19] MEDS: ARIPiprazole 5 MG TABLET (FP) PO SCH (10:03)
[2018-08-19] MEDS: TAMSULOSIN HCL 0.4 MG CAP PO SCH (10:03)
[2018-08-19] MEDS: TIMOLOL 0.5% OPHTHALMIC SOL 5 ML BOTTLE OD SCH (10:03)
[2018-08-19] MEDS: LATANOPROST 0.005% OPHTH SOLN 2.5ML BOTTLE OU SCH (21:27)
[2018-08-19] MEDS: traZODone HCL 50 MG TABLET (FP) PO SCH (21:27)
[2018-08-19] MEDS: THIAMINE HCL 100 MG TABLET (FP) PO SCH (21:27)
[2018-08-19] MEDS: INSULIN (LEVEMIR) 100 UNITS/ML UNITS SQ SCH (21:28)
[2018-08-19] MEDS: MELATONIN 5 MG TABLETS PO PRN (21:28)
[2018-08-20] MEDS: METHOCARBAMOL 500 MG TABLET PO SCH ×3 (06:11→21:43)
[2018-08-20] MEDS: metFORMIN HCL 500 MG TABLET (FP) PO SCH ×2 (06:48→16:49)
--- NOTE | 2018-08-20 10:19 | PN ---
[facility] Progress Note Note: [facility] REVIEW: Laboratory Tests 08/04/18 08/04/18 08/04/18 06:00 07:30 07:30 WBC 4.5 RBC 4.79 Hgb 14.2 Hct 42.4 MCV 88.6 MCH 29.6 MCHC 33.4 RDW 13.9 Plt Count 259 MPV 8.8 Sodium 137 Potassium 4.2 Chloride 101 Carbon Dioxide 31 Anion Gap 6 L BUN 11 Creatinine 0.9 Creat Clearance w eGFR 89.32 POC Glucometer 202 Random Glucose 206 H Calcium 9.0 Total Bilirubin 0.4 AST 10 L ALT 19 Alkaline Phosphatase 92 Total Protein 7.4 Albumin 4.1 RPR Titer 08/04/18 08/04/18 08/05/18 07:30 16:39 05:42 WBC RBC Hgb Hct MCV MCH MCHC RDW Plt Count MPV Sodium Potassium Chloride Carbon Dioxide Anion Gap BUN Creatinine Creat Clearance w eGFR POC Glucometer 154 198 Random Glucose Calcium Total Bilirubin AST ALT Alkaline Phosphatase Total Protein Albumin RPR Titer Nonreactive 08/05/18 08/06/18 08/06/18 16:42 06:03 16:26 WBC RBC Hgb Hct MCV MCH MCHC RDW Plt Count MPV Sodium Potassium Chloride Carbon Dioxide Anion Gap BUN Creatinine Creat Clearance w eGFR POC Glucometer 250 195 181 Random Glucose Calcium Total Bilirubin AST ALT Alkaline Phosphatase Total Protein Albumin RPR Titer 08/07/18 08/07/18 08/08/18 06:25 16:54 06:00 WBC RBC Hgb Hct MCV MCH MCHC RDW Plt Count MPV Sodium Potassium Chloride Carbon Dioxide Anion Gap BUN Creatinine Creat Clearance w eGFR POC Glucometer 185 276 181 Random Glucose Calcium Total Bilirubin AST ALT Alkaline Phosphatase Total Protein Albumin RPR Titer 08/09/18 08/10/18 08/10/18 06:30 06:41 16:40 WBC RBC Hgb Hct MCV MCH MCHC RDW Plt Count MPV Sodium Potassium Chloride Carbon Dioxide Anion Gap BUN Creatinine Creat Clearance w eGFR POC Glucometer 223 241 295 Random Glucose Calcium Total Bilirubin AST ALT Alkaline Phosphatase Total Protein Albumin RPR Titer 08/10/18 08/11/18 08/11/18 21:33 06:26 20:32 WBC RBC Hgb Hct MCV MCH MCHC RDW Plt Count MPV Sodium Potassium Chloride Carbon Dioxide Anion Gap BUN Creatinine Creat Clearance w eGFR POC Glucometer 219 244 248 Random Glucose Calcium Total Bilirubin AST ALT Alkaline Phosphatase Total Protein Albumin RPR Titer 08/12/18 08/12/18 08/12/18 06:44 16:33 20:43 WBC RBC Hgb Hct MCV MCH MCHC RDW Plt Count MPV Sodium Potassium Chloride Carbon Dioxide Anion Gap BUN Creatinine Creat Clearance w eGFR POC Glucometer 211 208 255 Random Glucose Calcium Total Bilirubin AST ALT Alkaline Phosphatase Total Protein Albumin RPR Titer 08/13/18 08/13/18 08/13/18 06:20 16:53 20:59 WBC RBC Hgb Hct MCV MCH MCHC RDW Plt Count MPV Sodium Potassium Chloride Carbon Dioxide Anion Gap BUN Creatinine Creat Clearance w eGFR POC Glucometer 167 246 270 Random Glucose Calcium Total Bilirubin AST ALT Alkaline Phosphatase Total Protein Albumin RPR Titer 08/14/18 08/14/18 08/14/18 06:03 16:36 21:31 WBC RBC Hgb Hct MCV MCH MCHC RDW Plt Count MPV Sodium Potassium Chloride Carbon Dioxide Anion Gap BUN Creatinine Creat Clearance w eGFR POC Glucometer 226 313 254 Random Glucose Calcium Total Bilirubin AST ALT Alkaline Phosphatase Total Protein Albumin RPR Titer 08/15/18 08/15/18 08/15/18 06:32 16:29 20:45 WBC RBC Hgb Hct MCV MCH MCHC RDW Plt Count MPV Sodium Potassium Chloride Carbon Dioxide Anion Gap BUN Creatinine Creat Clearance w eGFR POC Glucometer 212 209 250 Random Glucose Calcium Total Bilirubin AST ALT Alkaline Phosphatase Total Protein Albumin RPR Titer 08/16/18 08/16/18 08/16/18 06:18 16:27 20:23 WBC RBC Hgb Hct MCV MCH MCHC RDW Plt Count MPV Sodium Potassium Chloride Carbon Dioxide Anion Gap BUN Creatinine Creat Clearance w eGFR POC Glucometer 197 228 176 Random Glucose Calcium Total Bilirubin AST ALT Alkaline Phosphatase Total Protein Albumin RPR Titer 08/17/18 08/17/18 08/17/18 06:10 16:34 21:30 WBC RBC Hgb Hct MCV MCH MCHC RDW Plt Count MPV Sodium Potassium Chloride Carbon Dioxide Anion Gap BUN Creatinine Creat Clearance w eGFR POC Glucometer 201 292 273 Random Glucose Calcium Total Bilirubin AST ALT Alkaline Phosphatase Total Protein Albumin RPR Titer 08/18/18 08/18/18 08/18/18 07:02 16:25 20:34 WBC RBC Hgb Hct MCV MCH MCHC RDW Plt Count MPV Sodium Potassium Chloride Carbon Dioxide Anion Gap BUN Creatinine Creat Clearance w eGFR POC Glucometer 279 228 255 Random Glucose Calcium Total Bilirubin AST ALT Alkaline Phosphatase Total Protein Albumin RPR Titer 08/19/18 08/19/18 08/19/18 06:17 16:17 20:44 WBC RBC Hgb Hct MCV MCH MCHC RDW Plt Count MPV Sodium Potassium Chloride Carbon Dioxide Anion Gap BUN Creatinine Creat Clearance w eGFR POC Glucometer 226 244 238 Random Glucose Calcium Total Bilirubin AST ALT Alkaline Phosphatase Total Protein Albumin RPR Titer 08/20/18 06:10 WBC RBC Hgb Hct MCV MCH MCHC RDW Plt Count MPV Sodium Potassium Chloride Carbon Dioxide Anion Gap BUN Creatinine Creat Clearance w eGFR POC Glucometer 223 Random Glucose Calcium Total Bilirubin AST ALT Alkaline Phosphatase Total Protein Albumin RPR Titer SLIGHT GLC ELEVATIONS. PT REPORTS RUNS BELOW 200s AND ON LANTUS 18 UNITS. CURRENTLY ON 15 UNITS HS SINCE ADMISSION. PLAN:D/W PT WHO WANTS TO GET BACK TO HIS REGULAR BASAL DOSE OF 18 UNITS OF LANTUS HS. WILL RESTART TODAY WITH BGM MONITORING.
[2018-08-20] MEDS: TAMSULOSIN HCL 0.4 MG CAP PO SCH (10:24)
[2018-08-20] MEDS: TIMOLOL 0.5% OPHTHALMIC SOL 5 ML BOTTLE OD SCH (10:24)
[2018-08-20] MEDS: NICOTINE 14 MG/24 HOURS TOPICAL PATCH TD SCH (10:24)
[2018-08-20] MEDS: PRENATAL VITAMINS W/ FOLIC ACID TABLET (FP) PO SCH (10:24)
[2018-08-20] MEDS: ARIPiprazole 5 MG TABLET (FP) PO SCH (10:24)
[2018-08-20] MEDS: BISMUTH SUBSALICYLATE 524 MG/30 ML UD PO PRN (13:54)
[2018-08-20] MEDS: THIAMINE HCL 100 MG TABLET (FP) PO SCH (21:43)
[2018-08-20] MEDS: traZODone HCL 50 MG TABLET (FP) PO SCH (21:43)
[2018-08-20] MEDS: LATANOPROST 0.005% OPHTH SOLN 2.5ML BOTTLE OU SCH (21:46)
[2018-08-20] MEDS ORDERED: INSULIN (LEVEMIR) 100 UNITS/ML UNITS SQ SCH (22:00)
[2018-08-20] MEDS: INSULIN (LEVEMIR) 100 UNITS/ML UNITS SQ SCH (22:15)
[2018-08-21] MEDS: metFORMIN HCL 500 MG TABLET (FP) PO SCH ×2 (06:03→16:42)
[2018-08-21] MEDS: METHOCARBAMOL 500 MG TABLET PO SCH ×3 (06:45→21:22)
[2018-08-21] MEDS: TAMSULOSIN HCL 0.4 MG CAP PO SCH (10:14)
[2018-08-21] MEDS: ARIPiprazole 5 MG TABLET (FP) PO SCH (10:14)
[2018-08-21] MEDS: NICOTINE 14 MG/24 HOURS TOPICAL PATCH TD SCH (10:14)
[2018-08-21] MEDS: PRENATAL VITAMINS W/ FOLIC ACID TABLET (FP) PO SCH (10:14)
[2018-08-21] MEDS: TIMOLOL 0.5% OPHTHALMIC SOL 5 ML BOTTLE OD SCH (10:14)
[2018-08-21] MEDS: traZODone HCL 50 MG TABLET (FP) PO SCH (21:22)
[2018-08-21] MEDS: THIAMINE HCL 100 MG TABLET (FP) PO SCH (21:22)
[2018-08-21] MEDS: MELATONIN 5 MG TABLETS PO PRN (21:22)
[2018-08-21] MEDS: INSULIN (LEVEMIR) 100 UNITS/ML UNITS SQ SCH (21:24)
[2018-08-21] MEDS: LATANOPROST 0.005% OPHTH SOLN 2.5ML BOTTLE OU SCH (21:25)
[2018-08-22] MEDS: METHOCARBAMOL 500 MG TABLET PO SCH ×3 (05:58→21:24)
[2018-08-22] MEDS: metFORMIN HCL 500 MG TABLET (FP) PO SCH ×2 (06:40→16:39)
[2018-08-22] MEDS: TAMSULOSIN HCL 0.4 MG CAP PO SCH (10:09)
[2018-08-22] MEDS: ARIPiprazole 5 MG TABLET (FP) PO SCH (10:09)
[2018-08-22] MEDS: PRENATAL VITAMINS W/ FOLIC ACID TABLET (FP) PO SCH (10:09)
[2018-08-22] MEDS: NICOTINE 14 MG/24 HOURS TOPICAL PATCH TD SCH (10:10)
[2018-08-22] MEDS: TIMOLOL 0.5% OPHTHALMIC SOL 5 ML BOTTLE OD SCH (10:11)
[2018-08-22] MEDS: THIAMINE HCL 100 MG TABLET (FP) PO SCH (21:24)
[2018-08-22] MEDS: MELATONIN 5 MG TABLETS PO PRN (21:24)
[2018-08-22] MEDS: LATANOPROST 0.005% OPHTH SOLN 2.5ML BOTTLE OU SCH (21:24)
[2018-08-22] MEDS: traZODone HCL 50 MG TABLET (FP) PO SCH (21:24)
[2018-08-22] MEDS: INSULIN (LEVEMIR) 100 UNITS/ML UNITS SQ SCH (21:25)
[2018-08-23] MEDS: METHOCARBAMOL 500 MG TABLET PO SCH ×3 (06:21→21:38)
[2018-08-23] MEDS: metFORMIN HCL 500 MG TABLET (FP) PO SCH ×2 (06:21→16:45)
[2018-08-23] MEDS: NICOTINE 14 MG/24 HOURS TOPICAL PATCH TD SCH (10:04)
[2018-08-23] MEDS: ARIPiprazole 5 MG TABLET (FP) PO SCH (10:04)
[2018-08-23] MEDS: TAMSULOSIN HCL 0.4 MG CAP PO SCH (10:04)
[2018-08-23] MEDS: PRENATAL VITAMINS W/ FOLIC ACID TABLET (FP) PO SCH (10:04)
[2018-08-23] MEDS: TIMOLOL 0.5% OPHTHALMIC SOL 5 ML BOTTLE OD SCH (10:05)
[2018-08-23] MEDS: THIAMINE HCL 100 MG TABLET (FP) PO SCH (21:36)
[2018-08-23] MEDS: traZODone HCL 50 MG TABLET (FP) PO SCH (21:36)
[2018-08-23] MEDS: MELATONIN 5 MG TABLETS PO PRN (21:36)
[2018-08-23] MEDS: INSULIN (LEVEMIR) 100 UNITS/ML UNITS SQ SCH (21:37)
[2018-08-23] MEDS: LATANOPROST 0.005% OPHTH SOLN 2.5ML BOTTLE OU SCH (21:37)
[2018-08-24] MEDS: METHOCARBAMOL 500 MG TABLET PO SCH ×3 (06:28→21:24)
[2018-08-24] MEDS: metFORMIN HCL 500 MG TABLET (FP) PO SCH ×2 (06:28→17:00)
--- NOTE | 2018-08-24 07:18 | PN ---
[facility] Progress Note Note: Patient is scheduled for discharge today. Scripts for 30 days supply of medications(Abilify 5 mg/day, Trazadone 100 mg/hs) are electronically transmitted to [facility] [place] [address]
[2018-08-24] MEDS: TAMSULOSIN HCL 0.4 MG CAP PO SCH (09:30)
[2018-08-24] MEDS: PRENATAL VITAMINS W/ FOLIC ACID TABLET (FP) PO SCH (10:39)
[2018-08-24] MEDS: TIMOLOL 0.5% OPHTHALMIC SOL 5 ML BOTTLE OD SCH (10:39)
[2018-08-24] MEDS: NICOTINE 14 MG/24 HOURS TOPICAL PATCH TD SCH (10:39)
[2018-08-24] MEDS: ARIPiprazole 5 MG TABLET (FP) PO SCH (10:39)
[2018-08-24] MEDS: traZODone HCL 50 MG TABLET (FP) PO SCH (21:24)
[2018-08-24] MEDS: MELATONIN 5 MG TABLETS PO PRN (21:24)
[2018-08-24] MEDS: INSULIN (LEVEMIR) 100 UNITS/ML UNITS SQ SCH (21:24)
[2018-08-24] MEDS: THIAMINE HCL 100 MG TABLET (FP) PO SCH (21:24)
[2018-08-24] MEDS: LATANOPROST 0.005% OPHTH SOLN 2.5ML BOTTLE OU SCH (21:25)
[2018-08-25] MEDS: METHOCARBAMOL 500 MG TABLET PO SCH ×3 (06:23→21:33)
[2018-08-25] MEDS: metFORMIN HCL 500 MG TABLET (FP) PO SCH ×2 (06:23→16:15)
[2018-08-25] MEDS: TAMSULOSIN HCL 0.4 MG CAP PO SCH (09:30)
[2018-08-25] MEDS: ARIPiprazole 5 MG TABLET (FP) PO SCH (09:59)
[2018-08-25] MEDS: PRENATAL VITAMINS W/ FOLIC ACID TABLET (FP) PO SCH (09:59)
[2018-08-25] MEDS: NICOTINE 14 MG/24 HOURS TOPICAL PATCH TD SCH (09:59)
[2018-08-25] MEDS: TIMOLOL 0.5% OPHTHALMIC SOL 5 ML BOTTLE OD SCH (10:00)
[2018-08-25] MEDS: INSULIN (LEVEMIR) 100 UNITS/ML UNITS SQ SCH (21:31)
[2018-08-25] MEDS: THIAMINE HCL 100 MG TABLET (FP) PO SCH (21:33)
[2018-08-25] MEDS: LATANOPROST 0.005% OPHTH SOLN 2.5ML BOTTLE OU SCH (21:33)
[2018-08-25] MEDS: traZODone HCL 50 MG TABLET (FP) PO SCH (21:34)
[2018-08-25] MEDS: MELATONIN 5 MG TABLETS PO PRN (21:34)
[2018-08-26] MEDS: metFORMIN HCL 500 MG TABLET (FP) PO SCH ×2 (06:10→16:47)
[2018-08-26] MEDS: METHOCARBAMOL 500 MG TABLET PO SCH ×3 (06:10→21:32)
[2018-08-26] MEDS: NICOTINE 14 MG/24 HOURS TOPICAL PATCH TD SCH (10:27)
[2018-08-26] MEDS: ARIPiprazole 5 MG TABLET (FP) PO SCH (10:27)
[2018-08-26] MEDS: PRENATAL VITAMINS W/ FOLIC ACID TABLET (FP) PO SCH (10:27)
[2018-08-26] MEDS: TAMSULOSIN HCL 0.4 MG CAP PO SCH (10:27)
[2018-08-26] MEDS: TIMOLOL 0.5% OPHTHALMIC SOL 5 ML BOTTLE OD SCH (10:28)
[2018-08-26] MEDS: THIAMINE HCL 100 MG TABLET (FP) PO SCH (21:32)
[2018-08-26] MEDS: MELATONIN 5 MG TABLETS PO PRN (21:32)
[2018-08-26] MEDS: traZODone HCL 50 MG TABLET (FP) PO SCH (21:32)
[2018-08-26] MEDS: INSULIN (LEVEMIR) 100 UNITS/ML UNITS SQ SCH (21:33)
[2018-08-26] MEDS: LATANOPROST 0.005% OPHTH SOLN 2.5ML BOTTLE OU SCH (21:35)
[2018-08-27] MEDS: METHOCARBAMOL 500 MG TABLET PO SCH ×3 (06:07→22:11)
[2018-08-27] MEDS: metFORMIN HCL 500 MG TABLET (FP) PO SCH ×2 (06:08→17:02)
[2018-08-27] MEDS: NICOTINE 14 MG/24 HOURS TOPICAL PATCH TD SCH (10:20)
[2018-08-27] MEDS: TIMOLOL 0.5% OPHTHALMIC SOL 5 ML BOTTLE OD SCH (10:20)
[2018-08-27] MEDS: ARIPiprazole 5 MG TABLET (FP) PO SCH (10:20)
[2018-08-27] MEDS: TAMSULOSIN HCL 0.4 MG CAP PO SCH (10:20)
[2018-08-27] MEDS: PRENATAL VITAMINS W/ FOLIC ACID TABLET (FP) PO SCH (10:20)
[2018-08-27] MEDS: THIAMINE HCL 100 MG TABLET (FP) PO SCH (22:11)
[2018-08-27] MEDS: traZODone HCL 50 MG TABLET (FP) PO SCH (22:11)
[2018-08-27] MEDS: INSULIN (LEVEMIR) 100 UNITS/ML UNITS SQ SCH (22:12)
[2018-08-27] MEDS: LATANOPROST 0.005% OPHTH SOLN 2.5ML BOTTLE OU SCH (22:13)
[2018-08-28] MEDS: metFORMIN HCL 500 MG TABLET (FP) PO SCH ×2 (06:35→16:39)
[2018-08-28] MEDS: METHOCARBAMOL 500 MG TABLET PO SCH ×3 (06:35→21:30)
[2018-08-28] MEDS: PRENATAL VITAMINS W/ FOLIC ACID TABLET (FP) PO SCH (10:03)
[2018-08-28] MEDS: TAMSULOSIN HCL 0.4 MG CAP PO SCH (10:03)
[2018-08-28] MEDS: ARIPiprazole 5 MG TABLET (FP) PO SCH (10:03)
[2018-08-28] MEDS: NICOTINE 14 MG/24 HOURS TOPICAL PATCH TD SCH (10:04)
[2018-08-28] MEDS: TIMOLOL 0.5% OPHTHALMIC SOL 5 ML BOTTLE OD SCH (10:05)
[2018-08-28] MEDS: MELATONIN 5 MG TABLETS PO PRN (21:30)
[2018-08-28] MEDS: THIAMINE HCL 100 MG TABLET (FP) PO SCH (21:30)
[2018-08-28] MEDS: INSULIN (LEVEMIR) 100 UNITS/ML UNITS SQ SCH (21:30)
[2018-08-28] MEDS: LATANOPROST 0.005% OPHTH SOLN 2.5ML BOTTLE OU SCH (21:31)
[2018-08-28] MEDS: traZODone HCL 50 MG TABLET (FP) PO SCH (21:32)
[2018-08-29] MEDS: metFORMIN HCL 500 MG TABLET (FP) PO SCH ×2 (06:24→16:45)
[2018-08-29] MEDS: METHOCARBAMOL 500 MG TABLET PO SCH ×2 (06:24→14:16)
[2018-08-29] MEDS: TAMSULOSIN HCL 0.4 MG CAP PO SCH (09:30)
[2018-08-29] MEDS: ARIPiprazole 5 MG TABLET (FP) PO SCH (10:08)
[2018-08-29] MEDS: PRENATAL VITAMINS W/ FOLIC ACID TABLET (FP) PO SCH (10:08)
[2018-08-29] MEDS: TIMOLOL 0.5% OPHTHALMIC SOL 5 ML BOTTLE OD SCH (10:09)
[2018-08-29] MEDS: NICOTINE 14 MG/24 HOURS TOPICAL PATCH TD SCH (10:09)
[2018-08-29] MEDS: BISMUTH SUBSALICYLATE 524 MG/30 ML UD PO PRN (14:25)
[2018-08-29 21:11] VITALS: BP 155/89; PULSE 104; TEMP 98.1
--- NOTE | 2018-08-30 06:57 | PN ---
[facility] Progress Note Note: LATE ENTRY FOR 08/29/2018 @ 2200 Discharge Summary Patient Name: KATHY SUTTON JR Date of : 69 Patient Status: Inpatient Attending Provider: Coby Madera Date: 08/29/18 22:19 Initialization Date: 08/29/18 22:19 Discharge Summary Admission Date: 08/03/18 Discharge Date: 08/29/18 - History Present History: Alcohol Dependence, Cocaine Dependence Additional Comments: CLIENT REQUESTING DC THIS EVENING. STATES HE HAS SOMETHING HE NEEDS TO TAKE CARE OF AND CANNOT WAIT TO MEET WITH COUNSELOR IN THE MORNING. HE IS A/O X3 WITH NO COMPLAINTS OFFERED, NAD, UNRECEPTIVE TO ALL DISCUSSIONS ENCOURAGING CONTINUATION OF TXMENT. HE DENIES ANY SI/HI/AVH. Pertinent Past History: HTN, HLD, OA, GLAUCOMA,BPH, DM, NICOTINE DEP, BIPOLAR, INSOMNIA - Physical Exam Results Vital Signs: Vital Signs Temperature 98.1 F 08/29/18 21:10 Pulse Rate 104 H 08/29/18 21:10 Respiratory Rate 18 08/29/18 21:10 Blood Pressure 155/89 08/29/18 21:10 O2 Sat by Pulse Oximetry (%) Pertinent Admission Physical Exam Findings: Laboratory Tests 08/04/18 08/04/18 08/04/18 06:00 07:30 07:30 WBC 4.5 RBC 4.79 Hgb 14.2 Hct 42.4 MCV 88.6 MCH 29.6 MCHC 33.4 RDW 13.9 Plt Count 259 MPV 8.8 Sodium 137 Potassium 4.2 Chloride 101 Carbon Dioxide 31 Anion Gap 6 L BUN 11 Creatinine 0.9 Creat Clearance w eGFR 89.32 POC Glucometer 202 Random Glucose 206 H Calcium 9.0 Total Bilirubin 0.4 AST 10 L ALT 19 Alkaline Phosphatase 92 Total Protein 7.4 Albumin 4.1 RPR Titer 08/04/18 08/04/18 08/05/18 07:30 16:39 05:42 WBC RBC Hgb Hct MCV MCH MCHC RDW Plt Count MPV Sodium Potassium Chloride Carbon Dioxide Anion Gap BUN Creatinine Creat Clearance w eGFR POC Glucometer 154 198 Random Glucose Calcium Total Bilirubin AST ALT Alkaline Phosphatase Total Protein Albumin RPR Titer Nonreactive 08/05/18 08/06/18 08/06/18 16:42 06:03 16:26 WBC RBC Hgb Hct MCV MCH MCHC RDW Plt Count MPV Sodium Potassium Chloride Carbon Dioxide Anion Gap BUN Creatinine Creat Clearance w eGFR POC Glucometer 250 195 181 Random Glucose Calcium Total Bilirubin AST ALT Alkaline Phosphatase Total Protein Albumin RPR Titer 08/07/18 08/07/18 08/08/18 06:25 16:54 06:00 WBC RBC Hgb Hct MCV MCH MCHC RDW Plt Count MPV Sodium Potassium Chloride Carbon Dioxide Anion Gap BUN Creatinine Creat Clearance w eGFR POC Glucometer 185 276 181 Random Glucose Calcium Total Bilirubin AST ALT Alkaline Phosphatase Total Protein Albumin RPR Titer 08/09/18 08/10/18 08/10/18 06:30 06:41 16:40 WBC RBC Hgb Hct MCV MCH MCHC RDW Plt Count MPV Sodium Potassium Chloride Carbon Dioxide Anion Gap BUN Creatinine Creat Clearance w eGFR POC Glucometer 223 241 295 Random Glucose Calcium Total Bilirubin AST ALT Alkaline Phosphatase Total Protein Albumin RPR Titer 08/10/18 08/11/18 08/11/18 21:33 06:26 20:32 WBC RBC Hgb Hct MCV MCH MCHC RDW Plt Count MPV Sodium Potassium Chloride Carbon Dioxide Anion Gap BUN Creatinine Creat Clearance w eGFR POC Glucometer 219 244 248 Random Glucose Calcium Total Bilirubin AST ALT Alkaline Phosphatase Total Protein Albumin RPR Titer 08/12/18 08/12/18 08/12/18 06:44 16:33 20:43 WBC RBC Hgb Hct MCV MCH MCHC RDW Plt Count MPV Sodium Potassium Chloride Carbon Dioxide Anion Gap BUN Creatinine Creat Clearance w eGFR POC Glucometer 211 208 255 Random Glucose Calcium Total Bilirubin AST ALT Alkaline Phosphatase Total Protein Albumin RPR Titer 08/13/18 08/13/18 08/13/18 06:20 16:53 20:59 WBC RBC Hgb Hct MCV MCH MCHC RDW Plt Count MPV Sodium Potassium Chloride Carbon Dioxide Anion Gap BUN Creatinine Creat Clearance w eGFR POC Glucometer 167 246 270 Random Glucose Calcium Total Bilirubin AST ALT Alkaline Phosphatase Total Protein Albumin RPR Titer 08/14/18 08/14/18 08/14/18 06:03 16:36 21:31 WBC RBC Hgb Hct MCV MCH MCHC RDW Plt Count MPV Sodium Potassium Chloride Carbon Dioxide Anion Gap BUN Creatinine Creat Clearance w eGFR POC Glucometer 226 313 254 Random Glucose Calcium Total Bilirubin AST ALT Alkaline Phosphatase Total Protein Albumin RPR Titer 08/15/18 08/15/18 08/15/18 06:32 16:29 20:45 WBC RBC Hgb Hct MCV MCH MCHC RDW Plt Count MPV Sodium Potassium Chloride Carbon Dioxide Anion Gap BUN Creatinine Creat Clearance w eGFR POC Glucometer 212 209 250 Random Glucose Calcium Total Bilirubin AST ALT Alkaline Phosphatase Total Protein Albumin RPR Titer 08/16/18 08/16/18 08/16/18 06:18 16:27 20:23 WBC RBC Hgb Hct MCV MCH MCHC RDW Plt Count MPV Sodium Potassium Chloride Carbon Dioxide Anion Gap BUN Creatinine Creat Clearance w eGFR POC Glucometer 197 228 176 Random Glucose Calcium Total Bilirubin AST ALT Alkaline Phosphatase Total Protein Albumin RPR Titer 08/17/18 08/17/18 08/17/18 06:10 16:34 21:30 WBC RBC Hgb Hct MCV MCH MCHC RDW Plt Count MPV Sodium Potassium Chloride Carbon Dioxide Anion Gap BUN Creatinine Creat Clearance w eGFR POC Glucometer 201 292 273 Random Glucose Calcium Total Bilirubin AST ALT Alkaline Phosphatase Total Protein Albumin RPR Titer 08/18/18 08/18/18 08/18/18 07:02 16:25 20:34 WBC RBC Hgb Hct MCV MCH MCHC RDW Plt Count MPV Sodium Potassium Chloride Carbon Dioxide Anion Gap BUN Creatinine Creat Clearance w eGFR POC Glucometer 279 228 255 Random Glucose Calcium Total Bilirubin AST ALT Alkaline Phosphatase Total Protein Albumin RPR Titer 08/19/18 08/19/18 08/19/18 06:17 16:17 20:44 WBC RBC Hgb Hct MCV MCH MCHC RDW Plt Count MPV Sodium Potassium Chloride Carbon Dioxide Anion Gap BUN Creatinine Creat Clearance w eGFR POC Glucometer 226 244 238 Random Glucose Calcium Total Bilirubin AST ALT Alkaline Phosphatase Total Protein Albumin RPR Titer 08/20/18 08/20/18 08/20/18 06:10 16:48 21:43 WBC RBC Hgb Hct MCV MCH MCHC RDW Plt Count MPV Sodium Potassium Chloride Carbon Dioxide Anion Gap BUN Creatinine Creat Clearance w eGFR POC Glucometer 223 249 216 Random Glucose Calcium Total Bilirubin AST ALT Alkaline Phosphatase Total Protein Albumin RPR Titer 08/21/18 08/21/18 08/21/18 06:01 16:42 21:23 WBC RBC Hgb Hct MCV MCH MCHC RDW Plt Count MPV Sodium Potassium Chloride Carbon Dioxide Anion Gap BUN Creatinine Creat Clearance w eGFR POC Glucometer 202 218 250 Random Glucose Calcium Total Bilirubin AST ALT Alkaline Phosphatase Total Protein Albumin RPR Titer 08/22/18 08/22/18 08/22/18 06:39 16:38 20:36 WBC RBC Hgb Hct MCV MCH MCHC RDW Plt Count MPV Sodium Potassium Chloride Carbon Dioxide Anion Gap BUN Creatinine Creat Clearance w eGFR POC Glucometer 193 225 296 Random Glucose Calcium Total Bilirubin AST ALT Alkaline Phosphatase Total Protein Albumin RPR Titer 08/23/18 08/23/18 08/23/18 06:21 16:44 21:35 WBC RBC Hgb Hct MCV MCH MCHC RDW Plt Count MPV Sodium Potassium Chloride Carbon Dioxide Anion Gap BUN Creatinine Creat Clearance w eGFR POC Glucometer 184 281 201 Random Glucose Calcium Total Bilirubin AST ALT Alkaline Phosphatase Total Protein Albumin RPR Titer 08/24/18 08/24/18 08/24/18 06:27 16:59 21:23 WBC RBC Hgb Hct MCV MCH MCHC RDW Plt Count MPV Sodium Potassium Chloride Carbon Dioxide Anion Gap BUN Creatinine Creat Clearance w eGFR POC Glucometer 189 233 272 Random Glucose Calcium Total Bilirubin AST ALT Alkaline Phosphatase Total Protein Albumin RPR Titer 08/25/18 08/25/18 08/25/18 06:23 16:15 21:32 WBC RBC Hgb Hct MCV MCH MCHC RDW Plt Count MPV Sodium Potassium Chloride Carbon Dioxide Anion Gap BUN Creatinine Creat Clearance w eGFR POC Glucometer 175 192 224 Random Glucose Calcium Total Bilirubin AST ALT Alkaline Phosphatase Total Protein Albumin RPR Titer 08/26/18 08/26/18 08/26/18 05:40 16:47 21:32 WBC RBC Hgb Hct MCV MCH MCHC RDW Plt Count MPV Sodium Potassium Chloride Carbon Dioxide Anion Gap BUN Creatinine Creat Clearance w eGFR POC Glucometer 189 156 186 Random Glucose Calcium Total Bilirubin AST ALT Alkaline Phosphatase Total Protein Albumin RPR Titer 08/27/18 08/27/18 08/27/18 06:06 16:35 22:10 WBC RBC Hgb Hct MCV MCH MCHC RDW Plt Count MPV Sodium Potassium Chloride Carbon Dioxide Anion Gap BUN Creatinine Creat Clearance w eGFR POC Glucometer 156 218 173 Random Glucose Calcium Total Bilirubin AST ALT Alkaline Phosphatase Total Protein Albumin RPR Titer 08/28/18 08/28/18 08/28/18 06:34 16:39 21:29 WBC RBC Hgb Hct MCV MCH MCHC RDW Plt Count MPV Sodium Potassium Chloride Carbon Dioxide Anion Gap BUN Creatinine Creat Clearance w eGFR POC Glucometer 173 168 188 Random Glucose Calcium Total Bilirubin AST ALT Alkaline Phosphatase Total Protein Albumin RPR Titer 08/29/18 08/29/18 06:23 16:45 WBC RBC Hgb Hct MCV MCH MCHC RDW Plt Count MPV Sodium Potassium Chloride Carbon Dioxide Anion Gap BUN Creatinine Creat Clearance w eGFR POC Glucometer 131 154 Random Glucose Calcium Total Bilirubin AST ALT Alkaline Phosphatase Total Protein Albumin RPR Titer - Treatment Hospital Course: Discharged Condition Good Patient has Accepted a Rehab Referral to: [facility] - Medication Discharge Medications: Ambulatory Orders Latanoprost 0.005% Eye Drops [Xalatan 0.005% Eye Drops -] 1 drop OU HS #1 drops 04/29/18 Timolol 0.5% [Timoptic 0.5%] 1 drop OD DAILY #1 drops 04/29/18 Metformin HCl [Glucophage] 1,000 mg PO BID 30 Days #60 tablet 05/26/18 Fluoxetine HCl [Prozac] 20 mg PO DAILY 08/10/18 Insulin Glargine,Hum.rec.anlog [Lantus] 18 unit SQ ACHS 08/10/18 Tamsulosin HCl [Flomax] 0.4 mg PO DAILY 08/10/18 Aripiprazole [Abilify -] 5 mg PO DAILY #30 tablet 08/13/18 traZODone HCL [Trazodone HCl] 100 mg PO HS #30 tablet 08/13/18 - Diagnosis (1) Hyperlipidemia Status: Chronic (2) Substance-induced sleep disorder Status: Chronic (3) Arthritis Status: Chronic (4) BPH (benign prostatic hyperplasia) Status: Chronic Qualifiers: Lower urinary tract symptom detail: unspecified (5) Cocaine dependence Status: Chronic (6) DM Diabetes mellitus type 2 Status: Chronic (7) Glaucoma Status: Chronic Qualifiers: Primary angle closure glaucoma type: unspecified type (8) History of bipolar disorder Status: Chronic (9) Hypertension after donor nephrectomy requiring medication Status: Chronic (10) Insomnia Status: Chronic (11) Nicotine dependence Status: Chronic Qualifiers: Nicotine product type: cigarettes Substance use status: uncomplicated Qualified Code(s): F17.210 - Nicotine dependence, cigarettes, uncomplicated (12) Non-compliant patient Status: Chronic (13) Substance induced mood disorder Status: Chronic (14) Alcohol dependence Status: Chronic - AMA Did Patient Leave Against Medical Advice: No
[2019-08-10] MEDS ORDERED: PNEUMOCOCCAL 23 VACCINE 0.5 ML VIAL IM ONE (10:00)
== END 2018-08-29 21:32 | disposition home or self-care (01) | DRG 895 ==
LOC: YASAS 16:50 → Y6N 23:21 → Y5N 08-08 13:34
PROVIDERS: ADMIT Surgery; ATTEND Neuromusculoskeletal Medicine & OMM
PROC: HZ42ZZZ Group Counseling for Substance Abuse Treatment, Cognitive-Behavioral (ICD-10-PCS; principal; 2018-08-03)
DX: F10.20 Alcohol dependence, uncomplicated (principal); F13.20 Sedative, hypnotic or anxiolytic dependence, uncomplicated; F14.20 Cocaine dependence, uncomplicated; F19.282 Other psychoactive substance dependence with psychoactive substance-induced sleep disorder; F17.210 Nicotine dependence, cigarettes, uncomplicated; F19.24 Other psychoactive substance dependence with psychoactive substance-induced mood disorder; I97.3 Postprocedural hypertension; F31.9 Bipolar disorder, unspecified; E78.5 Hyperlipidemia, unspecified; H40.9 Unspecified glaucoma; E11.9 Type 2 diabetes mellitus without complications; Z79.84 Long term (current) use of oral hypoglycemic drugs; N40.0 Benign prostatic hyperplasia without lower urinary tract symptoms; M19.90 Unspecified osteoarthritis, unspecified site; M12.9 Arthropathy, unspecified; Z91.19 Patient's noncompliance with other medical treatment and regimen; Z91.5 Personal history of self-harm; Z59.0 Homelessness
CPT/HCPCS: 36415; 80053; 82962; 85027; 86593

== ENCOUNTER 2019-03-02 17:15 | Inpatient (IN) | payer OTHER ==
[2019-03-02 19:34] VITALS: BMI 34.8
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
[2019-03-02] MEDS ORDERED: MAG HYDROX/AL HYDROX/SIMETH 30 ML UNIT-DOSE CUP PO PRN (20:54)
[2019-03-02] MEDS ORDERED: MAGNESIUM HYDROX 2400MG/30ML ORAL SUSPENSION 30 ML CUP PO PRN (20:54)
[2019-03-02] MEDS ORDERED: IBUPROFEN 400 MG TABLET (FP) PO PRN (20:54)
[2019-03-02] MEDS ORDERED: ACETAMINOPHEN 325 MG TABLET (FP) PO PRN ×2 (20:54)
[2019-03-02] MEDS ORDERED: MENTHOL/PHENOL 1 EACH UD MM PRN (20:54)
[2019-03-02] MEDS ORDERED: MAGNESIUM CITRATE 300 ML BOTTLE PO PRN (20:54)
[2019-03-02] MEDS ORDERED: diazePAM 5 MG TABLET PO PRN (20:56)
[2019-03-02] MEDS: THIAMINE HCL 100 MG TABLET (FP) PO SCH (22:29)
[2019-03-02] MEDS: diazePAM 5 MG TABLET PO SCH (22:29)
[2019-03-02] MEDS: MELATONIN 5 MG TABLETS PO PRN (22:29)
[2019-03-02] MEDS: LATANOPROST 0.005% OPHTH SOLN 2.5ML BOTTLE OU SCH (22:30)
[2019-03-03] MEDS: diazePAM 5 MG TABLET PO SCH ×3 (05:20→22:12)
[2019-03-03] MEDS: metFORMIN HCL 500 MG TABLET (FP) PO SCH ×2 (06:15→16:59)
[2019-03-03 09:44] LABS: HEMATOCRIT 38.3 % (35.4-49); HEMOGLOBIN 12.7 GM/dL (11.7-16.9); MCH 29.1 pg (25.7-33.7); MCHC 33.1 g/dl (32.0-35.9); MEAN PLT VOLUME 8.3 fl (7.5-11.1); PLATELET COUNT 236 K/MM3 (134-434); RBC 4.35 M/mm3 (4.00-5.60); RDW 14.5 % (11.9-15.9); WHITE BLOOD COUNT 4.3 K/mm3 (4.0-10.0)
[2019-03-03 10:00] LABS: ALBUMIN 3.8 g/dl (3.4-5.0); BILIRUBIN,TOTAL 0.4 mg/dL (0.2-1); BLOOD UREA NITROGEN 11.8 mg/dL (7-18); CREATININE 0.9 mg/dL (0.55-1.3); POTASSIUM 3.9 mmol/L (3.5-5.1); TOT PROT 6.8 g/dl (6.4-8.2)
[2019-03-03] MEDS: PRENATAL VITAMINS W/ FOLIC ACID TABLET (FP) PO SCH (10:13)
[2019-03-03] MEDS: TAMSULOSIN HCL 0.4 MG CAP PO SCH (10:13)
[2019-03-03] MEDS: NICOTINE 7 MG/24 HOURS TOPICAL PATCH TD SCH (10:15)
--- NOTE | 2019-03-03 11:56 | PN ---
S CIWA - CIWA Score Nausea/Vomitin-No Nausea/No Vomiting Muscle Tremors: 2 Anxiety: 2 Agitation: 0-Normal Activity Paroxysmal Sweats: 1-Minimal Palms Moist Orientation: 0-Oriented Tacttile Disturbances: 0-None Auditory Disturbances: 0-None Visual Disturbances: 0-None Headache: 1-Very Mild CIWA-Ar Total Score: 6 S Progress Note (SOAP) Subjective: 53 years old male admitted on 03/02/19 for alcohol withdrawal sx management treated with valium detox regimen ate breakfast and lunch resting on bed encourage to attend groups and meeting Objective: 03/03/19 11:56 Vital Signs Temperature 97.6 F 03/03/19 09:00 Pulse Rate 80 03/03/19 09:00 Respiratory Rate 18 03/03/19 09:00 Blood Pressure 113/71 03/03/19 09:00 O2 Sat by Pulse Oximetry (%) Laboratory Last Values WBC 4.3 K/mm3 (4.0-10.0) 03/03/19 08:00 RBC 4.35 M/mm3 (4.00-5.60) 03/03/19 08:00 Hgb 12.7 GM/dL (11.7-16.9) 03/03/19 08:00 Hct 38.3 % (35.4-49) 03/03/19 08:00 MCV 88.0 fl (80-96) 03/03/19 08:00 MCH 29.1 pg (25.7-33.7) 03/03/19 08:00 MCHC 33.1 g/dl (32.0-35.9) 03/03/19 08:00 RDW 14.5 % (11.9-15.9) 03/03/19 08:00 Plt Count 236 K/MM3 (134-434) 03/03/19 08:00 MPV 8.3 fl (7.5-11.1) 03/03/19 08:00 Sodium 138 mmol/L (136-145) 03/03/19 08:00 Potassium 3.9 mmol/L (3.5-5.1) 03/03/19 08:00 Chloride 102 mmol/L (98-107) 03/03/19 08:00 Carbon Dioxide 30 mmol/L (21-32) 03/03/19 08:00 Anion Gap 6 MMOL/L (8-16) L 03/03/19 08:00 BUN 11.8 mg/dL (7-18) 03/03/19 08:00 Creatinine 0.9 mg/dL (0.55-1.3) 03/03/19 08:00 Est GFR (CKD-EPI)AfAm 114.21 03/03/19 08:00 Est GFR (CKD-EPI)NonAf 98.54 03/03/19 08:00 POC Glucometer 127 UNITS (80-120) 03/03/19:19 Random Glucose 117 mg/dL (74-106) H 03/03/19 08:00 Calcium 9.0 mg/dL (8.5-10.1) 03/03/19 08:00 Total Bilirubin 0.4 mg/dL (0.2-1) 03/03/19 08:00 AST 17 U/L (15-37) 03/03/19 08:00 ALT 30 U/L (13-61) 03/03/19 08:00 Alkaline Phosphatase 88 U/L (45-117) 03/03/19 08:00 Total Protein 6.8 g/dl (6.4-8.2) 03/03/19 08:00 Albumin 3.8 g/dl (3.4-5.0) 03/03/19 08:00 RPR Titer Nonreactive (NONREACTIVE) 03/03/19 08:00 lab noted Assessment: 03/03/19 11:56 alcohol withdrawal sx Plan: valium detox regimen
[2019-03-03] MEDS: TIMOLOL 0.5% OPHTHALMIC SOL 5 ML BOTTLE OD SCH (13:03)
--- NOTE | 2019-03-03 15:45 | CONSULT ---
[facility] Psychiatric Consult - Data Date of interview: 03/03/19 Admission source: [facility] Identifying data: Patient is a 53 year old single male, father of one, unemployed, domiciled, and is supported by [facility]. This is one of multiple admissions for patient. Patient admitted to for alcohol and cocaine dependence. Substance Abuse History: Smoking Cessation. Smoking history: Current every day smoker. Have you smoked in the past 12 months: Yes. Aproximately how many cigarettes per day: 10. Hx Chewing Tobacco Use: No. Initiated information on smoking cessation: Yes. 'Breaking Loose' booklet given: 03/02/19. - Substances abused. Alcohol. Substance route: Oral. Frequency: Daily. Amount used: 12 packs 24 oz beer. Age of first use: 14. Date of last use: 07/16 Medical History: Hypercholesterolemia, diabetes, Right ankle surgury 1995, Right foot surgery 1994 Psychiatric History: Patient reports history of multiple psychiatric hospitalizations most recently in 2018 for depression at [facility] in [facility]. Additional hospitalizations have occured at [facility] and [facility]. Reports a diagnosis of Bipolar disorder. Patient reports poor compliance to follow up care. Denies currently seeing an outpatient psychiatrist. He reports receiving refills of abilify 5mg + trazodone 100mg from his PCP in [place]. Reports taking his medications several days ago. Mr. Salter denies history of suicide attempt. At present he reports stable mood but is experiencing difficulty sleeping. Physical/Sexual Abuse/Trauma History: denies. Mental Status Exam - Mental Status Exam Alert and Oriented to: Time, Place, Person Cognitive Function: Good Patient Appearance: Unkempt Mood: Withdrawn Affect: Mood Congruent Patient Behavior: Cooperative Speech Pattern: Appropriate Voice Loudness: Moderately Soft/Quiet Thought Process: Goal Oriented Thought Disorder: Not Present Hallucinations: Denies Suicidal Ideation: Denies Homicidal Ideation: Denies Insight/Judgement: Poor Sleep: Poorly Appetite: Fair Muscle strength/Tone: Normal Gait/Station: Normal Psychiatric Findings - Problem List ([place] 1, 2,3) (1) Alcohol dependence Current Visit: Yes Status: Acute (2) Cocaine dependence Current Visit: Yes Status: Chronic Comment: .. (3) Nicotine dependence Current Visit: Yes Status: Chronic Qualifiers: Nicotine product type: cigarettes Substance use status: uncomplicated Qualified Code(s): F17.210 - Nicotine dependence, cigarettes, uncomplicated Comment: .. (4) History of bipolar disorder Current Visit: Yes Status: Chronic Comment: .. - Initial Treatment Plan Initial Treatment Plan: Psychoeducation provided. Detoxification in progress. Will order Abilify 5mg daily + Trazodone 100mg HS. Benefits and side effects discussed. Verbal consent given.
[2019-03-03] MEDS: traZODone HCL 100 MG TABLET (FP) PO SCH (22:11)
[2019-03-03] MEDS: THIAMINE HCL 100 MG TABLET (FP) PO SCH (22:12)
[2019-03-03] MEDS: LATANOPROST 0.005% OPHTH SOLN 2.5ML BOTTLE OU SCH (22:12)
[2019-03-04] MEDS: diazePAM 5 MG TABLET PO SCH ×2 (05:31→17:39)
[2019-03-04] MEDS: metFORMIN HCL 500 MG TABLET (FP) PO SCH ×2 (06:23→16:38)
[2019-03-04] MEDS: TAMSULOSIN HCL 0.4 MG CAP PO SCH (10:04)
[2019-03-04] MEDS: PRENATAL VITAMINS W/ FOLIC ACID TABLET (FP) PO SCH (10:04)
[2019-03-04] MEDS: TIMOLOL 0.5% OPHTHALMIC SOL 5 ML BOTTLE OD SCH (10:04)
[2019-03-04] MEDS: ARIPiprazole 5 MG TABLET PO SCH (10:05)
[2019-03-04] MEDS: NICOTINE 7 MG/24 HOURS TOPICAL PATCH TD SCH (10:05)
--- NOTE | 2019-03-04 11:14 | PN ---
S CIWA - CIWA Score Nausea/Vomitin-Mild Nausea/No Vomiting Muscle Tremors: 1-None Visible, but [place] Anxiety: 2 Agitation: 2 Paroxysmal Sweats: No Perspiration Orientation: 0-Oriented Tacttile Disturbances: 1-Very Mild Itch/Numbness Auditory Disturbances: 0-None Visual Disturbances: 0-None Headache: 2-Mild CIWA-Ar Total Score: 9 BHS Progress Note (SOAP) Subjective: alert,irritable,anxious,interrupted sleep,keith in the body Objective: 03/04/19 11:14 Vital Signs Temperature 98 F 03/04/19 09:15 Pulse Rate 95 H 03/04/19 09:15 Respiratory Rate 20 03/04/19 09:15 Blood Pressure 105/65 03/04/19 09:15 O2 Sat by Pulse Oximetry (%) 03/04/19 11:14 Laboratory Last Values WBC 4.3 K/mm3 (4.0-10.0) 03/03/19 08:00 RBC 4.35 M/mm3 (4.00-5.60) 03/03/19 08:00 Hgb 12.7 GM/dL (11.7-16.9) 03/03/19 08:00 Hct 38.3 % (35.4-49) 03/03/19 08:00 MCV 88.0 fl (80-96) 03/03/19 08:00 MCH 29.1 pg (25.7-33.7) 03/03/19 08:00 MCHC 33.1 g/dl (32.0-35.9) 03/03/19 08:00 RDW 14.5 % (11.9-15.9) 03/03/19 08:00 Plt Count 236 K/MM3 (134-434) 03/03/19 08:00 MPV 8.3 fl (7.5-11.1) 03/03/19 08:00 Sodium 138 mmol/L (136-145) 03/03/19 08:00 Potassium 3.9 mmol/L (3.5-5.1) 03/03/19 08:00 Chloride 102 mmol/L (98-107) 03/03/19 08:00 Carbon Dioxide 30 mmol/L (21-32) 03/03/19 08:00 Anion Gap 6 MMOL/L (8-16) L 03/03/19 08:00 BUN 11.8 mg/dL (7-18) 03/03/19 08:00 Creatinine 0.9 mg/dL (0.55-1.3) 03/03/19 08:00 Est GFR (CKD-EPI)AfAm 114.21 03/03/19 08:00 Est GFR (CKD-EPI)NonAf 98.54 03/03/19 08:00 POC Glucometer 118 UNITS (80-120) 03/04/19 05:30 Random Glucose 117 mg/dL (74-106) H 03/03/19 08:00 Calcium 9.0 mg/dL (8.5-10.1) 03/03/19 08:00 Total Bilirubin 0.4 mg/dL (0.2-1) 03/03/19 08:00 AST 17 U/L (15-37) 03/03/19 08:00 ALT 30 U/L (13-61) 03/03/19 08:00 Alkaline Phosphatase 88 U/L (45-117) 03/03/19 08:00 Total Protein 6.8 g/dl (6.4-8.2) 03/03/19 08:00 Albumin 3.8 g/dl (3.4-5.0) 03/03/19 08:00 RPR Titer Nonreactive (NONREACTIVE) 03/03/19 08:00 Assessment: 03/04/19 11:15 withdrawal symptom Plan: continue detox valium regimen,discharge in am
[2019-03-04] MEDS: traZODone HCL 100 MG TABLET (FP) PO SCH (22:20)
[2019-03-04] MEDS: THIAMINE HCL 100 MG TABLET (FP) PO SCH (22:20)
[2019-03-04] MEDS: LATANOPROST 0.005% OPHTH SOLN 2.5ML BOTTLE OU SCH (22:22)
[2019-03-05] MEDS ORDERED: diazePAM 5 MG TABLET PO ONE (06:00)
[2019-03-05] MEDS: metFORMIN HCL 500 MG TABLET (FP) PO SCH ×2 (06:31→16:58)
[2019-03-05] MEDS: TAMSULOSIN HCL 0.4 MG CAP PO SCH (10:22)
[2019-03-05] MEDS: PRENATAL VITAMINS W/ FOLIC ACID TABLET (FP) PO SCH (10:23)
[2019-03-05] MEDS: TIMOLOL 0.5% OPHTHALMIC SOL 5 ML BOTTLE OD SCH (10:23)
[2019-03-05] MEDS: NICOTINE 7 MG/24 HOURS TOPICAL PATCH TD SCH (10:23)
[2019-03-05] MEDS: ARIPiprazole 5 MG TABLET PO SCH (10:25)
--- NOTE | 2019-03-05 15:08 | DS ---
[facility] Detox Discharge Summary Admission Date: 03/02/19 Discharge Date: 03/05/19 - History Present History: Alcohol Dependence Additional Comments: Pt is medically cleared and transferred to [address] [place] [address] rehab today. Pt is alert and verbally responsive and in no acute respiratory distress. Pertinent Past History: H/o DM, Glaucoma, bph, and alcohol use disorder. - Physical Exam Results Vital Signs: Vital Signs Temperature 97.4 F L 03/05/19 09:28 Pulse Rate 93 H 03/05/19 09:28 Respiratory Rate 19 03/05/19 09:28 Blood Pressure 103/76 03/05/19 09:28 O2 Sat by Pulse Oximetry (%) Vital Signs 03/05/19 03/05/19 07:30 09:28 Temperature 97.8 F 97.4 F L Pulse Rate 83 93 H Respiratory 18 19 Rate Blood Pressure 99/72 103/76 Laboratory Last Values WBC 4.3 K/mm3 (4.0-10.0) 03/03/19 08:00 RBC 4.35 M/mm3 (4.00-5.60) 03/03/19 08:00 Hgb 12.7 GM/dL (11.7-16.9) 03/03/19 08:00 Hct 38.3 % (35.4-49) 03/03/19 08:00 MCV 88.0 fl (80-96) 03/03/19 08:00 MCH 29.1 pg (25.7-33.7) 03/03/19 08:00 MCHC 33.1 g/dl (32.0-35.9) 03/03/19 08:00 RDW 14.5 % (11.9-15.9) 03/03/19 08:00 Plt Count 236 K/MM3 (134-434) 03/03/19 08:00 MPV 8.3 fl (7.5-11.1) 03/03/19 08:00 Sodium 138 mmol/L (136-145) 03/03/19 08:00 Potassium 3.9 mmol/L (3.5-5.1) 03/03/19 08:00 Chloride 102 mmol/L (98-107) 03/03/19 08:00 Carbon Dioxide 30 mmol/L (21-32) 03/03/19 08:00 Anion Gap 6 MMOL/L (8-16) L 03/03/19 08:00 BUN 11.8 mg/dL (7-18) 03/03/19 08:00 Creatinine 0.9 mg/dL (0.55-1.3) 03/03/19 08:00 Est GFR (CKD-EPI)AfAm 114.21 03/03/19 08:00 Est GFR (CKD-EPI)NonAf 98.54 03/03/19 08:00 POC Glucometer 122 UNITS (80-120) 03/05/19 06:30 Random Glucose 117 mg/dL (74-106) H 03/03/19 08:00 Calcium 9.0 mg/dL (8.5-10.1) 03/03/19 08:00 Total Bilirubin 0.4 mg/dL (0.2-1) 03/03/19 08:00 AST 17 U/L (15-37) 03/03/19 08:00 ALT 30 U/L (13-61) 03/03/19 08:00 Alkaline Phosphatase 88 U/L (45-117) 03/03/19 08:00 Total Protein 6.8 g/dl (6.4-8.2) 03/03/19 08:00 Albumin 3.8 g/dl (3.4-5.0) 03/03/19 08:00 RPR Titer Nonreactive (NONREACTIVE) 03/03/19 08:00 Labs noted. Pertinent Admission Physical Exam Findings: withdrawal symptoms. - Treatment Hospital Course: Detox Protocol Followed, Detoxed Safely, Responded well, Discharged Condition Good, Rehab Referral Accepted Patient has Accepted a Rehab Referral to: [facility]. - Medication Discharge Medications: Ambulatory Orders Latanoprost 0.005% Eye Drops [Xalatan 0.005% Eye Drops -] 1 drop OU HS #1 drops 04/29/18 Timolol 0.5% [Timoptic 0.5%] 1 drop OD DAILY #1 drops 04/29/18 Metformin HCl [Glucophage] 1,000 mg PO BID 30 Days #60 tablet 05/26/18 Fluoxetine HCl [Prozac] 20 mg PO DAILY 08/10/18 Tamsulosin HCl [Flomax] 0.4 mg PO DAILY 08/10/18 Aripiprazole [Abilify -] 5 mg PO DAILY #30 tablet 08/13/18 traZODone HCL [Trazodone HCl] 100 mg PO HS #30 tablet 08/13/18 - Diagnosis (1) Alcohol dependence with uncomplicated withdrawal Current Visit: Yes Status: Acute (2) Cocaine dependence Current Visit: Yes Status: Chronic (3) Nicotine dependence Current Visit: Yes Status: Chronic Qualifiers: Nicotine product type: cigarettes Substance use status: uncomplicated Qualified Code(s): F17.210 - Nicotine dependence, cigarettes, uncomplicated (4) Alcohol dependence Current Visit: No Status: Chronic (5) Arthritis Current Visit: No Status: Chronic (6) BPH (benign prostatic hyperplasia) Current Visit: No Status: Chronic Qualifiers: Lower urinary tract symptom detail: unspecified (7) Cannabis abuse Current Visit: No Status: Chronic (8) DM Diabetes mellitus type 2 Current Visit: No Status: Chronic (9) Glaucoma Current Visit: No Status: Chronic Qualifiers: Primary angle closure glaucoma type: unspecified type (10) Hyperlipidemia Current Visit: No Status: Chronic - AMA Did Patient Leave Against Medical Advice: No S CIWA - CIWA Score Nausea/Vomitin-No Nausea/No Vomiting Muscle Tremors: None Anxiety: 1-Mildly Anxious Agitation: 0-Normal Activity Paroxysmal Sweats: 1-Minimal Palms Moist Orientation: 0-Oriented Tacttile Disturbances: 0-None Auditory Disturbances: 0-None Visual Disturbances: 0-None Headache: 0-None Present CIWA-Ar Total Score: 2
--- NOTE | 2019-03-05 15:16 | HP ---
[facility] Rehab Assess/Revision - Admission History Admitted to Rehab from: [facility] [place] Date of Admission to Rehab: 03/05/2019 - Vital signs Vital Signs: Vital Signs Period Temp Pulse Resp BP Sys/Godinez Pulse Ox Last 24 Hr 97.4 F-99.0 F 83-96 18-19 99-122/72-84 Vital Signs 03/05/19 03/05/19 07:30 09:28 Temperature 97.8 F 97.4 F L Pulse Rate 83 93 H Respiratory 18 19 Rate Blood Pressure 99/72 103/76 Laboratory Last Values WBC 4.3 K/mm3 (4.0-10.0) 03/03/19 08:00 RBC 4.35 M/mm3 (4.00-5.60) 03/03/19 08:00 Hgb 12.7 GM/dL (11.7-16.9) 03/03/19 08:00 Hct 38.3 % (35.4-49) 03/03/19 08:00 MCV 88.0 fl (80-96) 03/03/19 08:00 MCH 29.1 pg (25.7-33.7) 03/03/19 08:00 MCHC 33.1 g/dl (32.0-35.9) 03/03/19 08:00 RDW 14.5 % (11.9-15.9) 03/03/19 08:00 Plt Count 236 K/MM3 (134-434) 03/03/19 08:00 MPV 8.3 fl (7.5-11.1) 03/03/19 08:00 Sodium 138 mmol/L (136-145) 03/03/19 08:00 Potassium 3.9 mmol/L (3.5-5.1) 03/03/19 08:00 Chloride 102 mmol/L (98-107) 03/03/19 08:00 Carbon Dioxide 30 mmol/L (21-32) 03/03/19 08:00 Anion Gap 6 MMOL/L (8-16) L 03/03/19 08:00 BUN 11.8 mg/dL (7-18) 03/03/19 08:00 Creatinine 0.9 mg/dL (0.55-1.3) 03/03/19 08:00 Est GFR (CKD-EPI)AfAm 114.21 03/03/19 08:00 Est GFR (CKD-EPI)NonAf 98.54 03/03/19 08:00 POC Glucometer 122 UNITS (80-120) 03/05/19 06:30 Random Glucose 117 mg/dL (74-106) H 03/03/19 08:00 Calcium 9.0 mg/dL (8.5-10.1) 03/03/19 08:00 Total Bilirubin 0.4 mg/dL (0.2-1) 03/03/19 08:00 AST 17 U/L (15-37) 03/03/19 08:00 ALT 30 U/L (13-61) 03/03/19 08:00 Alkaline Phosphatase 88 U/L (45-117) 03/03/19 08:00 Total Protein 6.8 g/dl (6.4-8.2) 03/03/19 08:00 Albumin 3.8 g/dl (3.4-5.0) 03/03/19 08:00 RPR Titer Nonreactive (NONREACTIVE) 03/03/19 08:00 Labs noted. - Findings Detox History & Physical reviewed: Yes Concur with findings: Yes Inpatient Rehab Admission - Rehab Decision to Admit Inpatient rehab admission?: Yes - Initial Determination Are CD services needed?: Yes Free of communicable disease: Yes Not in need of hospitalization: Yes - Rehab Admission Criteria Previous failed treatment: Yes Poor recovery environment: Yes Comorbidities: Yes Lacks judgement: No Patient is meeting Inpatient Rehab admission criteria:: Yes
--- NOTE | 2019-03-05 17:20 | PN ---
[facility] Progress Note Note: Psychiatry Attending's note : Informed of patient's transfer to [facility]. Medications are already ordered by medical TELEVISION TUBE INSPECTOR Татьяна. Concordant with treatment plan from [address] [place] [address]. Verified. digital production operator Toney Loaiza's note of 03/03/19 : appreciated. Patient doing well. Already known to comic book writer. No adverse effects. Informed consent (verbal) : secured. Continuity of care.
[2019-03-05] MEDS: traZODone HCL 100 MG TABLET (FP) PO SCH (21:33)
[2019-03-05] MEDS: THIAMINE HCL 100 MG TABLET (FP) PO SCH (21:33)
[2019-03-05] MEDS: LATANOPROST 0.005% OPHTH SOLN 2.5ML BOTTLE OU SCH (22:25)
[2019-03-06] MEDS: metFORMIN HCL 500 MG TABLET (FP) PO SCH ×2 (06:19→16:42)
[2019-03-06] MEDS: PRENATAL VITAMINS W/ FOLIC ACID TABLET (FP) PO SCH (10:27)
[2019-03-06] MEDS: NICOTINE 7 MG/24 HOURS TOPICAL PATCH TD SCH (10:27)
[2019-03-06] MEDS: ARIPiprazole 5 MG TABLET PO SCH (10:27)
[2019-03-06] MEDS: TAMSULOSIN HCL 0.4 MG CAP PO SCH (10:27)
[2019-03-06] MEDS ORDERED: FLU VACCINE QUAD 60 MCG/0.5 ML (MDV 19-20) IM ONE (12:00)
[2019-03-06] MEDS: TIMOLOL 0.5% OPHTHALMIC SOL 5 ML BOTTLE OD SCH (14:47)
[2019-03-06] MEDS: MELATONIN 5 MG TABLETS PO PRN (21:24)
[2019-03-06] MEDS: THIAMINE HCL 100 MG TABLET (FP) PO SCH (21:24)
[2019-03-06] MEDS: traZODone HCL 100 MG TABLET (FP) PO SCH (21:24)
[2019-03-06] MEDS: LATANOPROST 0.005% OPHTH SOLN 2.5ML BOTTLE OU SCH (21:25)
[2019-03-07] MEDS: metFORMIN HCL 500 MG TABLET (FP) PO SCH ×2 (06:59→16:51)
[2019-03-07] MEDS: PRENATAL VITAMINS W/ FOLIC ACID TABLET (FP) PO SCH (10:13)
[2019-03-07] MEDS: TAMSULOSIN HCL 0.4 MG CAP PO SCH (10:13)
[2019-03-07] MEDS: ARIPiprazole 5 MG TABLET PO SCH (10:14)
[2019-03-07] MEDS: TIMOLOL 0.5% OPHTHALMIC SOL 5 ML BOTTLE OD SCH (10:14)
[2019-03-07] MEDS: NICOTINE 7 MG/24 HOURS TOPICAL PATCH TD SCH (10:14)
[2019-03-07] MEDS: hydrOXYzine PAMOATE 25 MG CAPSULE (FP) PO PRN (13:55)
[2019-03-07] MEDS: PROCHLORPERAZINE MALEATE 5 MG TABLET PO PRN (15:27)
[2019-03-07] MEDS: BISMUTH SUBSALICYLATE 524 MG/30 ML UD PO PRN (15:28)
[2019-03-07] MEDS: traZODone HCL 100 MG TABLET (FP) PO SCH (21:40)
[2019-03-07] MEDS: THIAMINE HCL 100 MG TABLET (FP) PO SCH (21:40)
[2019-03-07] MEDS: MELATONIN 5 MG TABLETS PO PRN (21:41)
[2019-03-07] MEDS: LATANOPROST 0.005% OPHTH SOLN 2.5ML BOTTLE OU SCH (23:08)
[2019-03-08] MEDS: metFORMIN HCL 500 MG TABLET (FP) PO SCH ×2 (07:06→16:45)
[2019-03-08] MEDS: PRENATAL VITAMINS W/ FOLIC ACID TABLET (FP) PO SCH (10:23)
[2019-03-08] MEDS: TAMSULOSIN HCL 0.4 MG CAP PO SCH (10:23)
[2019-03-08] MEDS: hydrOXYzine PAMOATE 25 MG CAPSULE (FP) PO PRN (10:23)
[2019-03-08] MEDS: NICOTINE 7 MG/24 HOURS TOPICAL PATCH TD SCH (10:25)
[2019-03-08] MEDS: TIMOLOL 0.5% OPHTHALMIC SOL 5 ML BOTTLE OD SCH (10:26)
[2019-03-08] MEDS: PROCHLORPERAZINE MALEATE 5 MG TABLET PO PRN (10:26)
[2019-03-08] MEDS: ARIPiprazole 5 MG TABLET PO SCH (10:26)
--- NOTE | 2019-03-08 13:35 | PN ---
S Progress Note Note: Pt c/o w/s -nausea and diarrhea. Pt is a 53 y/o male with a hx of alcohol use disorder admitted to rehab from [address] [place] [address] on 03/05/19. MHx:DM(on Metformin), HTN(on med), Arthritis, BPH(on med), Glaucoma(on med), HLD. Psych Hx:Bipolar Disorder Vital Signs - 24 hr 03/08/19 03/08/19 03/08/19 00:30 03:30 07:49 Temperature 98.1 F Pulse Rate 82 Respiratory 18 18 18 Rate Blood Pressure 115/70 Laboratory Tests 03/02/19 03/03/19 03/03/19 21:37 05:19 08:00 WBC 4.3 RBC 4.35 Hgb 12.7 Hct 38.3 MCV 88.0 MCH 29.1 MCHC 33.1 RDW 14.5 Plt Count 236 MPV 8.3 Sodium Potassium Chloride Carbon Dioxide Anion Gap BUN Creatinine Est GFR (CKD-EPI)AfAm Est GFR (CKD-EPI)NonAf POC Glucometer 117 127 Random Glucose Calcium Total Bilirubin AST ALT Alkaline Phosphatase Total Protein Albumin RPR Titer 03/03/19 03/03/19 03/03/19 08:00 08:00 16:57 WBC RBC Hgb Hct MCV MCH MCHC RDW Plt Count MPV Sodium 138 Potassium 3.9 Chloride 102 Carbon Dioxide 30 Anion Gap 6 L BUN 11.8 Creatinine 0.9 Est GFR (CKD-EPI)AfAm 114.21 Est GFR (CKD-EPI)NonAf 98.54 POC Glucometer 151 Random Glucose 117 H Calcium 9.0 Total Bilirubin 0.4 AST 17 ALT 30 Alkaline Phosphatase 88 Total Protein 6.8 Albumin 3.8 RPR Titer Nonreactive 03/04/19 03/04/19 03/05/19 05:30 16:29 06:30 WBC RBC Hgb Hct MCV MCH MCHC RDW Plt Count MPV Sodium Potassium Chloride Carbon Dioxide Anion Gap BUN Creatinine Est GFR (CKD-EPI)AfAm Est GFR (CKD-EPI)NonAf POC Glucometer 118 129 122 Random Glucose Calcium Total Bilirubin AST ALT Alkaline Phosphatase Total Protein Albumin RPR Titer 03/05/19 03/06/19 03/06/19 16:57 06:18 16:41 WBC RBC Hgb Hct MCV MCH MCHC RDW Plt Count MPV Sodium Potassium Chloride Carbon Dioxide Anion Gap BUN Creatinine Est GFR (CKD-EPI)AfAm Est GFR (CKD-EPI)NonAf POC Glucometer 154 138 87 Random Glucose Calcium Total Bilirubin AST ALT Alkaline Phosphatase Total Protein Albumin RPR Titer 03/07/19 03/07/19 03/08/19 06:57 16:50 07:05 WBC RBC Hgb Hct MCV MCH MCHC RDW Plt Count MPV Sodium Potassium Chloride Carbon Dioxide Anion Gap BUN Creatinine Est GFR (CKD-EPI)AfAm Est GFR (CKD-EPI)NonAf POC Glucometer 98 105 111 Random Glucose Calcium Total Bilirubin AST ALT Alkaline Phosphatase Total Protein Albumin RPR Titer Alert o x 3 nad oob ambulating with steady gait and visible on the unit. A/P protracted W/S s/p alcohol detox Maintain safety Continue compazine for nausea/vomiting as directed. Vistaril as directed for anxiety Imodium prn for diarrhea as directed
[2019-03-08] MEDS: THIAMINE HCL 100 MG TABLET (FP) PO SCH (21:37)
[2019-03-08] MEDS: traZODone HCL 100 MG TABLET (FP) PO SCH (21:37)
[2019-03-08] MEDS: MELATONIN 5 MG TABLETS PO PRN (21:37)
[2019-03-08] MEDS: LATANOPROST 0.005% OPHTH SOLN 2.5ML BOTTLE OU SCH (21:38)
[2019-03-09] MEDS: metFORMIN HCL 500 MG TABLET (FP) PO SCH ×2 (06:52→16:40)
[2019-03-09] MEDS: TAMSULOSIN HCL 0.4 MG CAP PO SCH (08:18)
[2019-03-09] MEDS: NICOTINE 7 MG/24 HOURS TOPICAL PATCH TD SCH (11:01)
[2019-03-09] MEDS: PRENATAL VITAMINS W/ FOLIC ACID TABLET (FP) PO SCH (11:01)
[2019-03-09] MEDS: ARIPiprazole 5 MG TABLET PO SCH (11:01)
[2019-03-09] MEDS: TIMOLOL 0.5% OPHTHALMIC SOL 5 ML BOTTLE OD SCH (11:01)
--- NOTE | 2019-03-09 12:17 | PN ---
Psychiatric Progress Note Vital Signs: Vital Signs Period Temp Pulse Resp BP Sys/Godinez Pulse Ox Last 24 Hr 97.3 F 85 18-18 109/71 Date of Session: 03/09/19 Chief Complaint:: "i'm not sleeping well." HPI: Patient admitted to for alcohol and cocaine dependence. Mr. Salter reports insomnia. ROS: Patient is coheret, alert + oriented X3. Current Medications: Active Medications Generic Name Dose Route Start Last Admin Trade Name Freq PRN Reason Stop Dose Admin Acetaminophen 650 mg 03/02/19 20:54 03/08/19 10:24 Tylenol - PO 650 mg Q6H PRN Administration FEVER Al Hydroxide/Mg Hydroxide 30 ml 03/02/19 20:54 Mylanta Oral Suspension - PO Q6H PRN DYSPEPSIA Aripiprazole 5 mg 03/04/19 10:00 03/09/19 11:01 Abilify PO 5 mg DAILY FLAKITO Administration Bismuth Subsalicylate 524 mg 03/02/19 20:54 03/07/19 15:28 Pepto-Bismol - PO 524 mg Q1H PRN Administration DIARRHEA Ibuprofen 400 mg 03/02/19 20:54 Motrin - PO Q6H PRN PAIN LEVEL 1 - 3 Latanoprost 1 drop 03/02/19 22:00 03/08/19 21:38 Xalatan 0.005% Eye Drops - OU 1 drop HS FLAKITO Administration Magnesium Citrate 300 ml 03/02/19 20:54 Citroma - PO Q48H PRN CONSTIPATION Magnesium Hydroxide 30 ml 03/02/19 20:54 Milk Of Magnesia - PO PRN PRN CONSTIPATION Melatonin 5 mg 03/02/19 20:54 03/08/19 21:37 Melatonin PO 5 mg HS PRN Administration INSOMNIA Metformin HCl 1,000 mg 03/03/19 07:00 03/09/19 06:52 Glucophage - PO 1,000 mg BIDAC FLAKITO Administration Nicotine 7 mg 03/03/19 10:00 03/09/19 11:01 Nicoderm Patch - TD Not Given DAILY FLAKITO Multivit/Folic Acid/Iron 1 tab 03/03/19 10:00 03/09/19 11:01 Vitamins (Sjr) - PO 1 tab DAILY FLAKITO Administration Tamsulosin HCl 0.4 mg 03/03/19 08:30 03/09/19 08:18 Flomax - PO 0.4 mg DAILY@0830 FLAKITO Administration Thiamine HCl 100 mg 03/02/19 22:00 03/08/19 21:37 Vitamin B1 - PO 100 mg HS FLAKITO Administration Timolol Maleate 1 drop 03/03/19 10:00 03/09/19 11:01 Timoptic 0.5% OD 1 drop DAILY FLAKITO Administration Trazodone HCl 100 mg 03/03/19 22:00 03/08/19 21:37 Desyrel - PO 100 mg HS FLAKITO Administration Medication(s) Change(s): Yes. Will d/c Trazodone 100mg + Melatonin 5mg. Will order Trazodone 150mg HS + Melatonin 10mg HS. Current Side Effect: No Lab tests ordered: No Lab tests reviewed: Yes Provider note:: Patient complaining of difficulty sleeping despite accepting Trazodone 100mg +Melatonin 5mg HS. Will d/c Trazodone 100mg HS and will order Trazodone 150mg HS. Patient educated on the importance of proper sleep hygiene. Benefits and side effects discussed. Verbal consent given. Total face to face time:: 20 Mental Status Exam - Mental Status Exam Alert and Oriented to: Time, Place, Person Cognitive Function: Good Patient Appearance: Well Groomed Mood: Withdrawn Affect: Mood Congruent Patient Behavior: Fatigued Speech Pattern: Appropriate Voice Loudness: Mildly Soft/Quiet Thought Process: Goal Oriented Thought Disorder: Not Present Hallucinations: Denies Suicidal Ideation: Denies Homicidal Ideation: Denies Insight/Judgement: Poor Sleep: Poorly Appetite: Fair Muscle strength/Tone: Normal Gait/Station: Normal Psychiatric Treatment Plan - Problem List (1) Alcohol dependence Current Visit: Yes (2) Cocaine dependence Current Visit: Yes Comment: .. (3) Nicotine dependence Current Visit: Yes Qualifiers: Nicotine product type: cigarettes Substance use status: uncomplicated Qualified Code(s): F17.210 - Nicotine dependence, cigarettes, uncomplicated Comment: .. (4) History of bipolar disorder Current Visit: Yes Comment: ..
[2019-03-09] MEDS: MELATONIN 5 MG TABLETS PO PRN (21:41)
[2019-03-09] MEDS: THIAMINE HCL 100 MG TABLET (FP) PO SCH (21:41)
[2019-03-09] MEDS: traZODone HCL 50 MG TABLET (FP) PO SCH (21:41)
[2019-03-09] MEDS: LATANOPROST 0.005% OPHTH SOLN 2.5ML BOTTLE OU SCH (21:42)
[2019-03-10] MEDS: metFORMIN HCL 500 MG TABLET (FP) PO SCH ×2 (06:32→16:55)
[2019-03-10] MEDS: TAMSULOSIN HCL 0.4 MG CAP PO SCH (09:28)
[2019-03-10] MEDS: NICOTINE 7 MG/24 HOURS TOPICAL PATCH TD SCH (09:28)
[2019-03-10] MEDS: PRENATAL VITAMINS W/ FOLIC ACID TABLET (FP) PO SCH (09:28)
[2019-03-10] MEDS: ARIPiprazole 5 MG TABLET PO SCH (09:28)
[2019-03-10] MEDS: TIMOLOL 0.5% OPHTHALMIC SOL 5 ML BOTTLE OD SCH (09:29)
[2019-03-10] MEDS: traZODone HCL 50 MG TABLET (FP) PO SCH (21:36)
[2019-03-10] MEDS: THIAMINE HCL 100 MG TABLET (FP) PO SCH (21:38)
[2019-03-10] MEDS: LATANOPROST 0.005% OPHTH SOLN 2.5ML BOTTLE OU SCH (21:38)
[2019-03-11] MEDS: metFORMIN HCL 500 MG TABLET (FP) PO SCH ×2 (06:34→16:41)
[2019-03-11] MEDS: PRENATAL VITAMINS W/ FOLIC ACID TABLET (FP) PO SCH (10:27)
[2019-03-11] MEDS: NICOTINE 7 MG/24 HOURS TOPICAL PATCH TD SCH (10:27)
[2019-03-11] MEDS: ARIPiprazole 5 MG TABLET PO SCH (10:27)
[2019-03-11] MEDS: TAMSULOSIN HCL 0.4 MG CAP PO SCH (10:27)
[2019-03-11] MEDS: TIMOLOL 0.5% OPHTHALMIC SOL 5 ML BOTTLE OD SCH (10:28)
[2019-03-11] MEDS: THIAMINE HCL 100 MG TABLET (FP) PO SCH (21:29)
[2019-03-11] MEDS: LATANOPROST 0.005% OPHTH SOLN 2.5ML BOTTLE OU SCH (21:29)
[2019-03-11] MEDS: traZODone HCL 50 MG TABLET (FP) PO SCH (21:29)
[2019-03-12] MEDS: metFORMIN HCL 500 MG TABLET (FP) PO SCH ×2 (06:34→17:38)
[2019-03-12] MEDS: TAMSULOSIN HCL 0.4 MG CAP PO SCH (09:59)
[2019-03-12] MEDS: ARIPiprazole 5 MG TABLET PO SCH (09:59)
[2019-03-12] MEDS: NICOTINE 7 MG/24 HOURS TOPICAL PATCH TD SCH (09:59)
[2019-03-12] MEDS: PRENATAL VITAMINS W/ FOLIC ACID TABLET (FP) PO SCH (09:59)
[2019-03-12] MEDS: TIMOLOL 0.5% OPHTHALMIC SOL 5 ML BOTTLE OD SCH (10:00)
[2019-03-12] MEDS: LATANOPROST 0.005% OPHTH SOLN 2.5ML BOTTLE OU SCH (10:50)
[2019-03-12] MEDS: THIAMINE HCL 100 MG TABLET (FP) PO SCH (22:46)
[2019-03-12] MEDS: traZODone HCL 50 MG TABLET (FP) PO SCH (22:46)
[2019-03-13] MEDS: metFORMIN HCL 500 MG TABLET (FP) PO SCH ×2 (06:33→16:47)
[2019-03-13] MEDS: PRENATAL VITAMINS W/ FOLIC ACID TABLET (FP) PO SCH (09:36)
[2019-03-13] MEDS: TAMSULOSIN HCL 0.4 MG CAP PO SCH (09:36)
[2019-03-13] MEDS: ARIPiprazole 5 MG TABLET PO SCH (09:37)
[2019-03-13] MEDS: TIMOLOL 0.5% OPHTHALMIC SOL 5 ML BOTTLE OD SCH (09:37)
[2019-03-13] MEDS: NICOTINE 7 MG/24 HOURS TOPICAL PATCH TD SCH (09:38)
[2019-03-13] MEDS: LATANOPROST 0.005% OPHTH SOLN 2.5ML BOTTLE OU SCH (21:39)
[2019-03-13] MEDS: MELATONIN 5 MG TABLETS PO PRN (21:39)
[2019-03-13] MEDS: THIAMINE HCL 100 MG TABLET (FP) PO SCH (21:39)
[2019-03-13] MEDS: traZODone HCL 50 MG TABLET (FP) PO SCH (21:39)
[2019-03-14] MEDS: metFORMIN HCL 500 MG TABLET (FP) PO SCH ×2 (06:46→16:27)
[2019-03-14] MEDS: ARIPiprazole 5 MG TABLET PO SCH (10:44)
[2019-03-14] MEDS: TAMSULOSIN HCL 0.4 MG CAP PO SCH (10:44)
[2019-03-14] MEDS: TIMOLOL 0.5% OPHTHALMIC SOL 5 ML BOTTLE OD SCH (10:44)
[2019-03-14] MEDS: PRENATAL VITAMINS W/ FOLIC ACID TABLET (FP) PO SCH (10:45)
[2019-03-14] MEDS: NICOTINE 7 MG/24 HOURS TOPICAL PATCH TD SCH (10:45)
[2019-03-14] MEDS: THIAMINE HCL 100 MG TABLET (FP) PO SCH (21:30)
[2019-03-14] MEDS: traZODone HCL 50 MG TABLET (FP) PO SCH (21:30)
[2019-03-14] MEDS: MELATONIN 5 MG TABLETS PO PRN (21:31)
[2019-03-14] MEDS: LATANOPROST 0.005% OPHTH SOLN 2.5ML BOTTLE OU SCH (21:32)
[2019-03-15] MEDS: metFORMIN HCL 500 MG TABLET (FP) PO SCH ×2 (06:17→16:58)
[2019-03-15] MEDS: TAMSULOSIN HCL 0.4 MG CAP PO SCH (08:29)
[2019-03-15] MEDS: TIMOLOL 0.5% OPHTHALMIC SOL 5 ML BOTTLE OD SCH (10:29)
[2019-03-15] MEDS: PRENATAL VITAMINS W/ FOLIC ACID TABLET (FP) PO SCH (10:29)
[2019-03-15] MEDS: NICOTINE 7 MG/24 HOURS TOPICAL PATCH TD SCH (10:29)
[2019-03-15] MEDS: ARIPiprazole 5 MG TABLET PO SCH (10:29)
[2019-03-15] MEDS: traZODone HCL 50 MG TABLET (FP) PO SCH (21:40)
[2019-03-15] MEDS: THIAMINE HCL 100 MG TABLET (FP) PO SCH (21:40)
[2019-03-15] MEDS: LATANOPROST 0.005% OPHTH SOLN 2.5ML BOTTLE OU SCH (21:41)
[2019-03-16] MEDS: metFORMIN HCL 500 MG TABLET (FP) PO SCH ×2 (06:20→16:39)
[2019-03-16] MEDS: TIMOLOL 0.5% OPHTHALMIC SOL 5 ML BOTTLE OD SCH (10:36)
[2019-03-16] MEDS: NICOTINE 7 MG/24 HOURS TOPICAL PATCH TD SCH (10:36)
[2019-03-16] MEDS: ARIPiprazole 5 MG TABLET PO SCH (10:36)
[2019-03-16] MEDS: TAMSULOSIN HCL 0.4 MG CAP PO SCH (10:36)
[2019-03-16] MEDS: PRENATAL VITAMINS W/ FOLIC ACID TABLET (FP) PO SCH (10:36)
[2019-03-16] MEDS: LATANOPROST 0.005% OPHTH SOLN 2.5ML BOTTLE OU SCH (21:38)
[2019-03-16] MEDS: THIAMINE HCL 100 MG TABLET (FP) PO SCH (21:39)
[2019-03-16] MEDS: traZODone HCL 50 MG TABLET (FP) PO SCH (21:39)
[2019-03-17] MEDS: metFORMIN HCL 500 MG TABLET (FP) PO SCH ×2 (06:10→16:57)
[2019-03-17] MEDS: PRENATAL VITAMINS W/ FOLIC ACID TABLET (FP) PO SCH (09:13)
[2019-03-17] MEDS: TIMOLOL 0.5% OPHTHALMIC SOL 5 ML BOTTLE OD SCH (09:13)
[2019-03-17] MEDS: TAMSULOSIN HCL 0.4 MG CAP PO SCH (09:13)
[2019-03-17] MEDS: ARIPiprazole 5 MG TABLET PO SCH (09:14)
[2019-03-17] MEDS: NICOTINE 7 MG/24 HOURS TOPICAL PATCH TD SCH (09:15)
[2019-03-17] MEDS: traZODone HCL 50 MG TABLET (FP) PO SCH (21:40)
[2019-03-17] MEDS: THIAMINE HCL 100 MG TABLET (FP) PO SCH (21:40)
[2019-03-17] MEDS: MELATONIN 5 MG TABLETS PO PRN (21:41)
[2019-03-17] MEDS: LATANOPROST 0.005% OPHTH SOLN 2.5ML BOTTLE OU SCH (21:41)
[2019-03-18] MEDS: metFORMIN HCL 500 MG TABLET (FP) PO SCH ×2 (06:42→16:40)
[2019-03-18] MEDS: ARIPiprazole 5 MG TABLET PO SCH (10:25)
[2019-03-18] MEDS: PRENATAL VITAMINS W/ FOLIC ACID TABLET (FP) PO SCH (10:25)
[2019-03-18] MEDS: TIMOLOL 0.5% OPHTHALMIC SOL 5 ML BOTTLE OD SCH (10:25)
[2019-03-18] MEDS: TAMSULOSIN HCL 0.4 MG CAP PO SCH (10:25)
[2019-03-18] MEDS: NICOTINE 7 MG/24 HOURS TOPICAL PATCH TD SCH (10:26)
[2019-03-18] MEDS: MELATONIN 5 MG TABLETS PO PRN (21:36)
[2019-03-18] MEDS: traZODone HCL 50 MG TABLET (FP) PO SCH (21:36)
[2019-03-18] MEDS: THIAMINE HCL 100 MG TABLET (FP) PO SCH (21:36)
[2019-03-18] MEDS: LATANOPROST 0.005% OPHTH SOLN 2.5ML BOTTLE OU SCH (21:37)
[2019-03-19] MEDS: metFORMIN HCL 500 MG TABLET (FP) PO SCH ×2 (06:40→16:41)
[2019-03-19] MEDS: ARIPiprazole 5 MG TABLET PO SCH (10:39)
[2019-03-19] MEDS: TAMSULOSIN HCL 0.4 MG CAP PO SCH (10:39)
[2019-03-19] MEDS: PRENATAL VITAMINS W/ FOLIC ACID TABLET (FP) PO SCH (10:39)
[2019-03-19] MEDS: NICOTINE 7 MG/24 HOURS TOPICAL PATCH TD SCH (10:39)
[2019-03-19] MEDS: TIMOLOL 0.5% OPHTHALMIC SOL 5 ML BOTTLE OD SCH (10:40)
[2019-03-19] MEDS: traZODone HCL 50 MG TABLET (FP) PO SCH (21:32)
[2019-03-19] MEDS: THIAMINE HCL 100 MG TABLET (FP) PO SCH (21:32)
[2019-03-19] MEDS: LATANOPROST 0.005% OPHTH SOLN 2.5ML BOTTLE OU SCH (21:33)
[2019-03-20] MEDS: metFORMIN HCL 500 MG TABLET (FP) PO SCH ×2 (06:36→16:45)
[2019-03-20] MEDS: PRENATAL VITAMINS W/ FOLIC ACID TABLET (FP) PO SCH (10:21)
[2019-03-20] MEDS: TAMSULOSIN HCL 0.4 MG CAP PO SCH (10:21)
[2019-03-20] MEDS: NICOTINE 7 MG/24 HOURS TOPICAL PATCH TD SCH (10:21)
[2019-03-20] MEDS: ARIPiprazole 5 MG TABLET PO SCH (10:21)
[2019-03-20] MEDS: TIMOLOL 0.5% OPHTHALMIC SOL 5 ML BOTTLE OD SCH (10:22)
[2019-03-20] MEDS: traZODone HCL 50 MG TABLET (FP) PO SCH (21:37)
[2019-03-20] MEDS: LATANOPROST 0.005% OPHTH SOLN 2.5ML BOTTLE OU SCH (21:37)
[2019-03-20] MEDS: THIAMINE HCL 100 MG TABLET (FP) PO SCH (21:38)
[2019-03-20] MEDS: MELATONIN 5 MG TABLETS PO PRN (21:38)
[2019-03-21] MEDS: metFORMIN HCL 500 MG TABLET (FP) PO SCH ×2 (07:29→16:35)
[2019-03-21] MEDS: NICOTINE 7 MG/24 HOURS TOPICAL PATCH TD SCH (10:35)
[2019-03-21] MEDS: TIMOLOL 0.5% OPHTHALMIC SOL 5 ML BOTTLE OD SCH (10:35)
[2019-03-21] MEDS: ARIPiprazole 5 MG TABLET PO SCH (10:35)
[2019-03-21] MEDS: PRENATAL VITAMINS W/ FOLIC ACID TABLET (FP) PO SCH (10:35)
[2019-03-21] MEDS: TAMSULOSIN HCL 0.4 MG CAP PO SCH (10:35)
[2019-03-21] MEDS: MELATONIN 5 MG TABLETS PO PRN (21:23)
[2019-03-21] MEDS: LATANOPROST 0.005% OPHTH SOLN 2.5ML BOTTLE OU SCH (21:23)
[2019-03-21] MEDS: THIAMINE HCL 100 MG TABLET (FP) PO SCH (21:23)
[2019-03-21] MEDS: traZODone HCL 50 MG TABLET (FP) PO SCH (21:23)
[2019-03-22] MEDS: metFORMIN HCL 500 MG TABLET (FP) PO SCH ×2 (06:16→16:39)
[2019-03-22] MEDS: TAMSULOSIN HCL 0.4 MG CAP PO SCH (10:24)
[2019-03-22] MEDS: NICOTINE 7 MG/24 HOURS TOPICAL PATCH TD SCH (10:25)
[2019-03-22] MEDS: ARIPiprazole 5 MG TABLET PO SCH (10:25)
[2019-03-22] MEDS: TIMOLOL 0.5% OPHTHALMIC SOL 5 ML BOTTLE OD SCH (10:25)
[2019-03-22] MEDS: PRENATAL VITAMINS W/ FOLIC ACID TABLET (FP) PO SCH (10:25)
[2019-03-22] MEDS: LATANOPROST 0.005% OPHTH SOLN 2.5ML BOTTLE OU SCH (21:30)
[2019-03-22] MEDS: traZODone HCL 50 MG TABLET (FP) PO SCH (21:30)
[2019-03-22] MEDS: THIAMINE HCL 100 MG TABLET (FP) PO SCH (21:30)
[2019-03-22] MEDS: MELATONIN 5 MG TABLETS PO PRN (21:31)
[2019-03-23] MEDS: metFORMIN HCL 500 MG TABLET (FP) PO SCH ×2 (06:56→16:40)
[2019-03-23] MEDS: ARIPiprazole 5 MG TABLET PO SCH (10:21)
[2019-03-23] MEDS: PRENATAL VITAMINS W/ FOLIC ACID TABLET (FP) PO SCH (10:21)
[2019-03-23] MEDS: NICOTINE 7 MG/24 HOURS TOPICAL PATCH TD SCH (10:21)
[2019-03-23] MEDS: TAMSULOSIN HCL 0.4 MG CAP PO SCH (10:21)
[2019-03-23] MEDS: TIMOLOL 0.5% OPHTHALMIC SOL 5 ML BOTTLE OD SCH (10:23)
[2019-03-23] MEDS: traZODone HCL 50 MG TABLET (FP) PO SCH (21:25)
[2019-03-23] MEDS: MELATONIN 5 MG TABLETS PO PRN (21:26)
[2019-03-23] MEDS: LATANOPROST 0.005% OPHTH SOLN 2.5ML BOTTLE OU SCH (21:26)
[2019-03-23] MEDS: THIAMINE HCL 100 MG TABLET (FP) PO SCH (21:26)
[2019-03-24] MEDS: metFORMIN HCL 500 MG TABLET (FP) PO SCH ×2 (06:22→16:28)
[2019-03-24] MEDS: TAMSULOSIN HCL 0.4 MG CAP PO SCH (09:21)
[2019-03-24] MEDS: PRENATAL VITAMINS W/ FOLIC ACID TABLET (FP) PO SCH (09:22)
[2019-03-24] MEDS: NICOTINE 7 MG/24 HOURS TOPICAL PATCH TD SCH (09:22)
[2019-03-24] MEDS: ARIPiprazole 5 MG TABLET PO SCH (09:22)
[2019-03-24] MEDS: TIMOLOL 0.5% OPHTHALMIC SOL 5 ML BOTTLE OD SCH (09:23)
[2019-03-24] MEDS: MELATONIN 5 MG TABLETS PO PRN (21:28)
[2019-03-24] MEDS: traZODone HCL 50 MG TABLET (FP) PO SCH (21:28)
[2019-03-24] MEDS: THIAMINE HCL 100 MG TABLET (FP) PO SCH (21:29)
[2019-03-24] MEDS: LATANOPROST 0.005% OPHTH SOLN 2.5ML BOTTLE OU SCH (21:29)
[2019-03-25] MEDS: metFORMIN HCL 500 MG TABLET (FP) PO SCH ×2 (06:28→16:32)
[2019-03-25] MEDS: TAMSULOSIN HCL 0.4 MG CAP PO SCH (09:59)
[2019-03-25] MEDS: ARIPiprazole 5 MG TABLET PO SCH (09:59)
[2019-03-25] MEDS: NICOTINE 7 MG/24 HOURS TOPICAL PATCH TD SCH (09:59)
[2019-03-25] MEDS: PRENATAL VITAMINS W/ FOLIC ACID TABLET (FP) PO SCH (09:59)
[2019-03-25] MEDS: TIMOLOL 0.5% OPHTHALMIC SOL 5 ML BOTTLE OD SCH (10:01)
[2019-03-25] MEDS: THIAMINE HCL 100 MG TABLET (FP) PO SCH (21:41)
[2019-03-25] MEDS: traZODone HCL 50 MG TABLET (FP) PO SCH (21:41)
[2019-03-25] MEDS: LATANOPROST 0.005% OPHTH SOLN 2.5ML BOTTLE OU SCH (21:42)
[2019-03-26] MEDS: metFORMIN HCL 500 MG TABLET (FP) PO SCH ×2 (06:39→16:45)
[2019-03-26] MEDS: PRENATAL VITAMINS W/ FOLIC ACID TABLET (FP) PO SCH (10:34)
[2019-03-26] MEDS: TIMOLOL 0.5% OPHTHALMIC SOL 5 ML BOTTLE OD SCH (10:34)
[2019-03-26] MEDS: TAMSULOSIN HCL 0.4 MG CAP PO SCH (10:34)
[2019-03-26] MEDS: ARIPiprazole 5 MG TABLET PO SCH (10:35)
[2019-03-26] MEDS: NICOTINE 7 MG/24 HOURS TOPICAL PATCH TD SCH (10:35)
[2019-03-26] MEDS: BISMUTH SUBSALICYLATE 524 MG/30 ML UD PO PRN (10:35)
[2019-03-26] MEDS: LATANOPROST 0.005% OPHTH SOLN 2.5ML BOTTLE OU SCH (21:35)
[2019-03-26] MEDS: THIAMINE HCL 100 MG TABLET (FP) PO SCH (21:35)
[2019-03-26] MEDS: MELATONIN 5 MG TABLETS PO PRN (21:35)
[2019-03-26] MEDS: traZODone HCL 50 MG TABLET (FP) PO SCH (21:35)
[2019-03-27] MEDS: metFORMIN HCL 500 MG TABLET (FP) PO SCH ×2 (07:10→16:41)
[2019-03-27] MEDS: TAMSULOSIN HCL 0.4 MG CAP PO SCH (09:04)
[2019-03-27] MEDS: TIMOLOL 0.5% OPHTHALMIC SOL 5 ML BOTTLE OD SCH (09:04)
[2019-03-27] MEDS: PRENATAL VITAMINS W/ FOLIC ACID TABLET (FP) PO SCH (09:04)
[2019-03-27] MEDS: NICOTINE 7 MG/24 HOURS TOPICAL PATCH TD SCH (09:05)
[2019-03-27] MEDS: ARIPiprazole 5 MG TABLET PO SCH (09:05)
[2019-03-27] MEDS: traZODone HCL 50 MG TABLET (FP) PO SCH (21:38)
[2019-03-27] MEDS: MELATONIN 5 MG TABLETS PO PRN (21:39)
[2019-03-27] MEDS: THIAMINE HCL 100 MG TABLET (FP) PO SCH (21:39)
[2019-03-27] MEDS: LATANOPROST 0.005% OPHTH SOLN 2.5ML BOTTLE OU SCH (21:40)
[2019-03-28] MEDS: metFORMIN HCL 500 MG TABLET (FP) PO SCH ×2 (06:37→16:34)
[2019-03-28] MEDS: PRENATAL VITAMINS W/ FOLIC ACID TABLET (FP) PO SCH (10:37)
[2019-03-28] MEDS: TAMSULOSIN HCL 0.4 MG CAP PO SCH (10:37)
[2019-03-28] MEDS: NICOTINE 7 MG/24 HOURS TOPICAL PATCH TD SCH (10:38)
[2019-03-28] MEDS: TIMOLOL 0.5% OPHTHALMIC SOL 5 ML BOTTLE OD SCH (10:38)
[2019-03-28] MEDS: ARIPiprazole 5 MG TABLET PO SCH (10:38)
[2019-03-28] MEDS: MELATONIN 5 MG TABLETS PO PRN (21:32)
[2019-03-28] MEDS: THIAMINE HCL 100 MG TABLET (FP) PO SCH (21:32)
[2019-03-28] MEDS: traZODone HCL 50 MG TABLET (FP) PO SCH (21:32)
[2019-03-28] MEDS: LATANOPROST 0.005% OPHTH SOLN 2.5ML BOTTLE OU SCH (21:33)
[2019-03-29] MEDS: metFORMIN HCL 500 MG TABLET (FP) PO SCH ×2 (06:31→16:19)
[2019-03-29] MEDS: TAMSULOSIN HCL 0.4 MG CAP PO SCH (09:35)
[2019-03-29] MEDS: PRENATAL VITAMINS W/ FOLIC ACID TABLET (FP) PO SCH (09:35)
[2019-03-29] MEDS: ARIPiprazole 5 MG TABLET PO SCH (09:35)
[2019-03-29] MEDS: TIMOLOL 0.5% OPHTHALMIC SOL 5 ML BOTTLE OD SCH (09:35)
[2019-03-29] MEDS: NICOTINE 7 MG/24 HOURS TOPICAL PATCH TD SCH (09:36)
[2019-03-29] MEDS: THIAMINE HCL 100 MG TABLET (FP) PO SCH (21:38)
[2019-03-29] MEDS: LATANOPROST 0.005% OPHTH SOLN 2.5ML BOTTLE OU SCH (21:38)
[2019-03-29] MEDS: traZODone HCL 50 MG TABLET (FP) PO SCH (21:38)
[2019-03-30] MEDS: metFORMIN HCL 500 MG TABLET (FP) PO SCH ×2 (06:39→16:31)
[2019-03-30] MEDS: ARIPiprazole 5 MG TABLET PO SCH (10:10)
[2019-03-30] MEDS: NICOTINE 7 MG/24 HOURS TOPICAL PATCH TD SCH (10:10)
[2019-03-30] MEDS: TIMOLOL 0.5% OPHTHALMIC SOL 5 ML BOTTLE OD SCH (10:10)
[2019-03-30] MEDS: PRENATAL VITAMINS W/ FOLIC ACID TABLET (FP) PO SCH (10:10)
[2019-03-30] MEDS: TAMSULOSIN HCL 0.4 MG CAP PO SCH (10:10)
[2019-03-30] MEDS: traZODone HCL 50 MG TABLET (FP) PO SCH (21:41)
[2019-03-30] MEDS: MELATONIN 5 MG TABLETS PO PRN (21:41)
[2019-03-30] MEDS: LATANOPROST 0.005% OPHTH SOLN 2.5ML BOTTLE OU SCH (21:42)
[2019-03-30] MEDS: THIAMINE HCL 100 MG TABLET (FP) PO SCH (21:42)
[2019-03-31] MEDS: metFORMIN HCL 500 MG TABLET (FP) PO SCH (06:15)
[2019-03-31 07:19] VITALS: BP 130/94; PULSE 93; TEMP 97.9
--- NOTE | 2019-03-31 09:13 | PN ---
S Progress Note Note: Psychiatric nurse practitioner note: Patient scheduled for discharge today. A 30 day prescription of Abilify 5mg daily + Trazodone 150mg HS was electronically sent to [facility] at [address] [place] [address].
[2019-03-31] MEDS: PRENATAL VITAMINS W/ FOLIC ACID TABLET (FP) PO SCH (09:35)
[2019-03-31] MEDS: ARIPiprazole 5 MG TABLET PO SCH (09:35)
[2019-03-31] MEDS: TAMSULOSIN HCL 0.4 MG CAP PO SCH (09:35)
[2019-03-31] MEDS: NICOTINE 7 MG/24 HOURS TOPICAL PATCH TD SCH (09:35)
[2019-03-31] MEDS: TIMOLOL 0.5% OPHTHALMIC SOL 5 ML BOTTLE OD SCH (09:36)
[2019-03-31] MEDS: BISMUTH SUBSALICYLATE 524 MG/30 ML UD PO PRN (09:37)
--- NOTE | 2019-03-31 09:47 | DS ---
[facility] Rehab Discharge Summary - [facility] Re[facility] Discharge Summary Admission Date: 03/02/19 Discharge Date: 03/31/19 - History Present History: Alcohol dependence, Cocaine dependence Additional Comments: Pt is a 53 y/o male with a hx of MAME admitted to rehab and discharged today. Pt has been referred to [facility] on [address] [place] [address] for CD aftercare. Pt has primary care at [facility] on [address] [place] [address]. Pertinent Past History: Type 2 DM HLD Arthritis BPH HTN Glaucoma,bilateral Bipolar Disorder - Discharge Physical Exam Vital Signs: Vital Signs Temperature 97.9 F 03/31/19 07:17 Pulse Rate 93 H 03/31/19 07:17 Respiratory Rate 18 03/31/19 07:17 Blood Pressure 130/94 03/31/19 07:17 O2 Sat by Pulse Oximetry (%) Pertinent Admission Physical Exam Findings: Laboratory Tests 03/02/19 03/03/19 03/03/19 21:37 05:19 08:00 WBC 4.3 RBC 4.35 Hgb 12.7 Hct 38.3 MCV 88.0 MCH 29.1 MCHC 33.1 RDW 14.5 Plt Count 236 MPV 8.3 Sodium Potassium Chloride Carbon Dioxide Anion Gap BUN Creatinine Est GFR (CKD-EPI)AfAm Est GFR (CKD-EPI)NonAf POC Glucometer 117 127 Random Glucose Calcium Total Bilirubin AST ALT Alkaline Phosphatase Total Protein Albumin RPR Titer 03/03/19 03/03/19 03/03/19 08:00 08:00 16:57 WBC RBC Hgb Hct MCV MCH MCHC RDW Plt Count MPV Sodium 138 Potassium 3.9 Chloride 102 Carbon Dioxide 30 Anion Gap 6 L BUN 11.8 Creatinine 0.9 Est GFR (CKD-EPI)AfAm 114.21 Est GFR (CKD-EPI)NonAf 98.54 POC Glucometer 151 Random Glucose 117 H Calcium 9.0 Total Bilirubin 0.4 AST 17 ALT 30 Alkaline Phosphatase 88 Total Protein 6.8 Albumin 3.8 RPR Titer Nonreactive 03/04/19 03/04/19 03/05/19 05:30 16:29 06:30 WBC RBC Hgb Hct MCV MCH MCHC RDW Plt Count MPV Sodium Potassium Chloride Carbon Dioxide Anion Gap BUN Creatinine Est GFR (CKD-EPI)AfAm Est GFR (CKD-EPI)NonAf POC Glucometer 118 129 122 Random Glucose Calcium Total Bilirubin AST ALT Alkaline Phosphatase Total Protein Albumin RPR Titer 03/05/19 03/06/19 03/06/19 16:57 06:18 16:41 WBC RBC Hgb Hct MCV MCH MCHC RDW Plt Count MPV Sodium Potassium Chloride Carbon Dioxide Anion Gap BUN Creatinine Est GFR (CKD-EPI)AfAm Est GFR (CKD-EPI)NonAf POC Glucometer 154 138 87 Random Glucose Calcium Total Bilirubin AST ALT Alkaline Phosphatase Total Protein Albumin RPR Titer 03/07/19 03/07/19 03/08/19 06:57 16:50 07:05 WBC RBC Hgb Hct MCV MCH MCHC RDW Plt Count MPV Sodium Potassium Chloride Carbon Dioxide Anion Gap BUN Creatinine Est GFR (CKD-EPI)AfAm Est GFR (CKD-EPI)NonAf POC Glucometer 98 105 111 Random Glucose Calcium Total Bilirubin AST ALT Alkaline Phosphatase Total Protein Albumin RPR Titer 03/08/19 03/09/19 03/09/19 16:44 06:51 16:40 WBC RBC Hgb Hct MCV MCH MCHC RDW Plt Count MPV Sodium Potassium Chloride Carbon Dioxide Anion Gap BUN Creatinine Est GFR (CKD-EPI)AfAm Est GFR (CKD-EPI)NonAf POC Glucometer 89 71 124 Random Glucose Calcium Total Bilirubin AST ALT Alkaline Phosphatase Total Protein Albumin RPR Titer 03/10/19 03/10/19 03/11/19 06:30 16:53 06:31 WBC RBC Hgb Hct MCV MCH MCHC RDW Plt Count MPV Sodium Potassium Chloride Carbon Dioxide Anion Gap BUN Creatinine Est GFR (CKD-EPI)AfAm Est GFR (CKD-EPI)NonAf POC Glucometer 85 165 106 Random Glucose Calcium Total Bilirubin AST ALT Alkaline Phosphatase Total Protein Albumin RPR Titer 03/11/19 03/12/19 03/12/19 16:39 06:31 17:37 WBC RBC Hgb Hct MCV MCH MCHC RDW Plt Count MPV Sodium Potassium Chloride Carbon Dioxide Anion Gap BUN Creatinine Est GFR (CKD-EPI)AfAm Est GFR (CKD-EPI)NonAf POC Glucometer 170 112 140 Random Glucose Calcium Total Bilirubin AST ALT Alkaline Phosphatase Total Protein Albumin RPR Titer 03/13/19 03/13/19 03/14/19 06:33 16:48 06:46 WBC RBC Hgb Hct MCV MCH MCHC RDW Plt Count MPV Sodium Potassium Chloride Carbon Dioxide Anion Gap BUN Creatinine Est GFR (CKD-EPI)AfAm Est GFR (CKD-EPI)NonAf POC Glucometer 118 141 149 Random Glucose Calcium Total Bilirubin AST ALT Alkaline Phosphatase Total Protein Albumin RPR Titer 03/14/19 03/15/19 03/15/19 16:27 06:17 16:56 WBC RBC Hgb Hct MCV MCH MCHC RDW Plt Count MPV Sodium Potassium Chloride Carbon Dioxide Anion Gap BUN Creatinine Est GFR (CKD-EPI)AfAm Est GFR (CKD-EPI)NonAf POC Glucometer 169 126 140 Random Glucose Calcium Total Bilirubin AST ALT Alkaline Phosphatase Total Protein Albumin RPR Titer 03/16/19 03/16/19 03/17/19 06:20 16:40 06:09 WBC RBC Hgb Hct MCV MCH MCHC RDW Plt Count MPV Sodium Potassium Chloride Carbon Dioxide Anion Gap BUN Creatinine Est GFR (CKD-EPI)AfAm Est GFR (CKD-EPI)NonAf POC Glucometer 120 159 111 Random Glucose Calcium Total Bilirubin AST ALT Alkaline Phosphatase Total Protein Albumin RPR Titer 03/17/19 03/18/19 03/18/19 16:56 06:41 16:39 WBC RBC Hgb Hct MCV MCH MCHC RDW Plt Count MPV Sodium Potassium Chloride Carbon Dioxide Anion Gap BUN Creatinine Est GFR (CKD-EPI)AfAm Est GFR (CKD-EPI)NonAf POC Glucometer 160 128 167 Random Glucose Calcium Total Bilirubin AST ALT Alkaline Phosphatase Total Protein Albumin RPR Titer 03/19/19 03/19/19 03/20/19 06:38 16:39 06:35 WBC RBC Hgb Hct MCV MCH MCHC RDW Plt Count MPV Sodium Potassium Chloride Carbon Dioxide Anion Gap BUN Creatinine Est GFR (CKD-EPI)AfAm Est GFR (CKD-EPI)NonAf POC Glucometer 146 131 145 Random Glucose Calcium Total Bilirubin AST ALT Alkaline Phosphatase Total Protein Albumin RPR Titer 03/20/19 03/21/19 03/21/19 16:45 07:28 16:34 WBC RBC Hgb Hct MCV MCH MCHC RDW Plt Count MPV Sodium Potassium Chloride Carbon Dioxide Anion Gap BUN Creatinine Est GFR (CKD-EPI)AfAm Est GFR (CKD-EPI)NonAf POC Glucometer 193 130 169 Random Glucose Calcium Total Bilirubin AST ALT Alkaline Phosphatase Total Protein Albumin RPR Titer 03/22/19 03/22/19 03/23/19 06:15 16:09 06:55 WBC RBC Hgb Hct MCV MCH MCHC RDW Plt Count MPV Sodium Potassium Chloride Carbon Dioxide Anion Gap BUN Creatinine Est GFR (CKD-EPI)AfAm Est GFR (CKD-EPI)NonAf POC Glucometer 146 129 155 Random Glucose Calcium Total Bilirubin AST ALT Alkaline Phosphatase Total Protein Albumin RPR Titer 03/23/19 03/24/19 03/24/19 16:38 06:21 16:26 WBC RBC Hgb Hct MCV MCH MCHC RDW Plt Count MPV Sodium Potassium Chloride Carbon Dioxide Anion Gap BUN Creatinine Est GFR (CKD-EPI)AfAm Est GFR (CKD-EPI)NonAf POC Glucometer 199 146 138 Random Glucose Calcium Total Bilirubin AST ALT Alkaline Phosphatase Total Protein Albumin RPR Titer 03/25/19 03/25/19 03/26/19 06:27 16:30 06:38 WBC RBC Hgb Hct MCV MCH MCHC RDW Plt Count MPV Sodium Potassium Chloride Carbon Dioxide Anion Gap BUN Creatinine Est GFR (CKD-EPI)AfAm Est GFR (CKD-EPI)NonAf POC Glucometer 144 196 150 Random Glucose Calcium Total Bilirubin AST ALT Alkaline Phosphatase Total Protein Albumin RPR Titer 03/26/19 03/27/19 03/27/19 16:44 07:10 16:40 WBC RBC Hgb Hct MCV MCH MCHC RDW Plt Count MPV Sodium Potassium Chloride Carbon Dioxide Anion Gap BUN Creatinine Est GFR (CKD-EPI)AfAm Est GFR (CKD-EPI)NonAf POC Glucometer 176 131 163 Random Glucose Calcium Total Bilirubin AST ALT Alkaline Phosphatase Total Protein Albumin RPR Titer 03/28/19 03/28/19 03/29/19 06:36 16:33 06:30 WBC RBC Hgb Hct MCV MCH MCHC RDW Plt Count MPV Sodium Potassium Chloride Carbon Dioxide Anion Gap BUN Creatinine Est GFR (CKD-EPI)AfAm Est GFR (CKD-EPI)NonAf POC Glucometer 142 190 153 Random Glucose Calcium Total Bilirubin AST ALT Alkaline Phosphatase Total Protein Albumin RPR Titer 03/29/19 03/30/19 03/30/19 16:17 06:38 16:33 WBC RBC Hgb Hct MCV MCH MCHC RDW Plt Count MPV Sodium Potassium Chloride Carbon Dioxide Anion Gap BUN Creatinine Est GFR (CKD-EPI)AfAm Est GFR (CKD-EPI)NonAf POC Glucometer 170 170 241 Random Glucose Calcium Total Bilirubin AST ALT Alkaline Phosphatase Total Protein Albumin RPR Titer 03/31/19 06:14 WBC RBC Hgb Hct MCV MCH MCHC RDW Plt Count MPV Sodium Potassium Chloride Carbon Dioxide Anion Gap BUN Creatinine Est GFR (CKD-EPI)AfAm Est GFR (CKD-EPI)NonAf POC Glucometer 152 Random Glucose Calcium Total Bilirubin AST ALT Alkaline Phosphatase Total Protein Albumin RPR Titer - Treatment Discharge Condition: Discharge condition good Hospital Course: Rehabilitated safely - Medication Discharge Medications: Ambulatory Orders Latanoprost 0.005% Eye Drops [Xalatan 0.005% Eye Drops -] 1 drop OU HS #1 drops 04/29/18 Timolol 0.5% [Timoptic 0.5%] 1 drop OD DAILY #1 drops 04/29/18 Metformin HCl [Glucophage] 1,000 mg PO BID 30 Days #60 tablet 05/26/18 Fluoxetine HCl [Prozac] 20 mg PO DAILY 08/10/18 Tamsulosin HCl [Flomax] 0.4 mg PO DAILY 08/10/18 Aripiprazole [Abilify -] 5 mg PO DAILY #30 tablet 08/13/18 traZODone HCL [Trazodone HCl] 100 mg PO HS #30 tablet 08/13/18 Aripiprazole [Abilify -] 5 mg PO DAILY #30 tablet 03/31/19 traZODone HCL [Desyrel -] 150 mg PO HS #30 tablet 03/31/19 - Medication-Assisted Treatment (MAT) Medication-Assisted Treatment (MAT): No - Discharge Instructions Diet, activity, other medical instructions: Diet:CINDI/NCS Activity: oob ad andrei Other medical instructions:Follow up with primary care provider within 1-2 weeks after discharge follow up with CD aftercare recommendations as scheduled. 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 This provider and patient spoke with pharmacist at [facility] in [place], [place] who confirmed refill medications are to be picked up by pt upon discharge.
== END 2019-03-31 10:15 | disposition home or self-care (01) | DRG 895 ==
LOC: YASAS 17:15 → Y3N 21:39 → Y5N 03-05 15:14 → Y6N 03-05 16:33 → Y5N 03-05 16:36
PROVIDERS: ADMIT Allergy & Immunology; ATTEND Neuromusculoskeletal Medicine & OMM
PROC: HZ2ZZZZ Detoxification Services for Substance Abuse Treatment (ICD-10-PCS; principal; 2019-03-02)
PROC: HZ42ZZZ Group Counseling for Substance Abuse Treatment, Cognitive-Behavioral (ICD-10-PCS; 2019-03-05)
DX: F10.230 Alcohol dependence with withdrawal, uncomplicated (principal); F14.20 Cocaine dependence, uncomplicated; F12.10 Cannabis abuse, uncomplicated; F17.210 Nicotine dependence, cigarettes, uncomplicated; E78.5 Hyperlipidemia, unspecified; E11.9 Type 2 diabetes mellitus without complications; N40.0 Benign prostatic hyperplasia without lower urinary tract symptoms; M19.90 Unspecified osteoarthritis, unspecified site; H40.9 Unspecified glaucoma; R00.0 Tachycardia, unspecified; Z79.84 Long term (current) use of oral hypoglycemic drugs; Z91.5 Personal history of self-harm; Z59.0 Homelessness
CPT/HCPCS: 36415; 80053; 82962; 85027; 86593; G0008; Q2036

== ENCOUNTER 2023-09-08 13:36 | Inpatient (IN) | payer OTHER ==
[2023-09-08 14:37] VITALS: BMI 31.1
[2023-09-08] MEDS ORDERED: P-EPHED 60MG/TRIPROLIDI 2.5MG TABLET PO PRN (15:38)
[2023-09-08] MEDS ORDERED: BENZONATATE 200 MG CAPSULE PO PRN (15:38)
[2023-09-08] MEDS ORDERED: ACETAMINOPHEN 325 MG TABLET (FP) PO PRN (15:38)
[2023-09-08] MEDS ORDERED: NICOTINE POLACRILEX 2 MG LOZENGE BC PRN (15:38)
[2023-09-08] MEDS ORDERED: BENZOCAINE/MENTHOL (CHLORASEPTIC ) LOZENGE MM PRN (15:38)
[2023-09-08] MEDS ORDERED: POLYETHYLENE GLYCOL (HEALTHYLAX) 3350 17 GM PACKET PO PRN (15:38)
[2023-09-08] MEDS ORDERED: LOPERAMIDE HCL 2 MG CAPSULE PO PRN (15:38)
[2023-09-08] MEDS ORDERED: NICOTINE POLACRILEX 2 MG GUM BUC PRN (15:38)
[2023-09-08] MEDS ORDERED: IBUPROFEN 400 MG TABLET (FP) PO PRN (15:38)
[2023-09-08] MEDS ORDERED: MAG HYDROX/AL HYDROX/SIMETH 30 ML UNIT-DOSE CUP PO PRN (15:38)
[2023-09-08] MEDS ORDERED: NALOXONE (NARCAN) HCL 4 MG/0.1 ML SPRAY NS PRN (15:38)
[2023-09-08] MEDS ORDERED: MAGNESIUM HYDROX 2400MG/30ML ORAL SUSPENSION 30 ML CUP PO PRN (15:38)
[2023-09-08] MEDS ORDERED: guaiFENesin 600 MG TABLET.ER (FP) PO PRN (15:38)
[2023-09-08] MEDS ORDERED: NALOXONE HCL 0.4 MG/ML VIAL IM PRN (15:38)
[2023-09-08 20:50] LABS: PH,URINE 5.5 (5.0-8.0); URINE APPEARANCE CLEAR; URINE BILIRUBIN NEGATIVE (NEGATIVE); URINE COLOR YELLOW; URINE GLUCOSE (UA) 1+ (NEGATIVE); URINE KETONE NEGATIVE (NEGATIVE); URINE LEUK ESTERASE NEGATIVE (NEGATIVE); URINE NITRITE NEGATIVE (NEGATIVE); URINE PROTEIN NEGATIVE (NEGATIVE)
[2023-09-08] MEDS: MELATONIN 5 MG TABLETS PO SCH (22:08)
[2023-09-08] MEDS: THIAMINE 100 MG TABLET PO SCH (22:08)
[2023-09-08] MEDS: hydrOXYzine PAMOATE 25 MG CAPSULE (FP) PO PRN (22:08)
[2023-09-08] MEDS ORDERED: guaiFENesin 200 MG/10 ML 10 ML UNIT-DOSE CUPS PO PRN (22:51)
[2023-09-09] MEDS: metFORMIN HCL 500 MG TABLET (FP) PO SCH (06:04)
[2023-09-09] MEDS: PRENATAL VITAMINS W/ FOLIC ACID TABLET (FP) PO SCH (09:24)
[2023-09-09] MEDS: TAMSULOSIN HCL 0.4 MG CAP PO SCH (09:24)
[2023-09-09] MEDS: ASPIRIN 81 MG CHEWABLE TABLETS PO SCH (09:24)
[2023-09-09] MEDS: PANTOPRAZOLE 40 MG TABLET PO SCH (09:24)
[2023-09-09] MEDS: FOLIC ACID 1 MG TABLET (FP) PO SCH (09:24)
[2023-09-09] MEDS: GABAPENTIN 300 MG CAPSULE PO SCH (09:24)
[2023-09-09] MEDS: ENALAPRIL MALEATE 5 MG TABLET PO SCH (10:54)
[2023-09-09] MEDS: TIMOLOL 0.5% OPHTHALMIC SOL 5 ML BOTTLE OU SCH (10:59)
[2023-09-09 11:38] LABS: HEMOGLOBIN 12.9 GM/dL (11.7-16.9); MCH 30.3 pg (25.7-33.7); MCHC 34.1 g/dl (32.0-35.9); MEAN CELL VOLUME 88.8 fl (80-96); MEAN PLT VOLUME 7.9 fl (7.5-11.1); PLATELET COUNT 272 10^3/uL (134-434); RBC 4.27 M/mm3 (4.00-5.60); RDW 14.2 % (11.9-15.9); WHITE BLOOD COUNT 3.7 K/mm3 (4.0-10.0)
[2023-09-09 11:47] LABS: CHLORIDE 107 mmol/L (98-107); POTASSIUM 4.4 mmol/L (3.5-5.1); SODIUM 141 mmol/L (136-145)
[2023-09-09 11:52] LABS: ALBUMIN 3.1 g/dl (3.4-5.0); ANION GAP 3 mmol/L (4-13); CO2 31 mmol/L (21-32); GLUCOSE,RANDOM 134 mg/dL (74-106)
[2023-09-09 11:54] LABS: BLOOD UREA NITROGEN 10.8 mg/dL (7-18); CALCIUM 8.4 mg/dL (8.5-10.1)
[2023-09-09 11:55] LABS: SGPT/ALT 22 U/L (13-61)
[2023-09-09 11:56] LABS: BILIRUBIN,TOTAL 0.3 mg/dL (0.2-1)
[2023-09-09 11:57] LABS: SGOT/AST 13 U/L (15-37)
[2023-09-09 11:58] LABS: ALK PHOS 101 U/L (45-117)
[2023-09-09 12:00] LABS: CREATININE 0.8 mg/dL (0.55-1.3); TOT PROT 6.4 g/dl (6.4-8.2)
[2023-09-09 12:17] LABS: SYPHILIS W/ RPR CONF NON-REACTIVE (NONREACTIVE)
[2023-09-09] MEDS: PATIENT'S OWN MEDICATION (NON-FORMULARY) (Mometasone/Formoterol [Dulera 200 Mcg-5 Mcg Inha IH SCH (13:37)
[2023-09-09] MEDS ORDERED: ASPIRIN 81 MG CHEWABLE TABLETS PO SCH (13:45)
[2023-09-09] MEDS ORDERED: ENALAPRIL MALEATE 5 MG TABLET PO SCH (13:45)
[2023-09-09] MEDS ORDERED: GABAPENTIN 300 MG CAPSULE PO SCH (13:45)
[2023-09-09] MEDS: ALBUTEROL SO4 HFA INHALER IH SCH (14:14)
[2023-09-09] MEDS: BUDESONIDE/FORMETEROL FUMARATE 160/4.5 mcg INHALER IH SCH (15:02)
[2023-09-09] MEDS: ATORVASTATIN CA 10 MG TABLET (FP) PO SCH (21:29)
[2023-09-09] MEDS: MELATONIN 5 MG TABLETS PO SCH (21:29)
[2023-09-09] MEDS: LATANOPROST 0.005% OPHTH SOLN 2.5ML BOTTLE OU SCH (21:30)
[2023-09-09] MEDS ORDERED: TAMSULOSIN HCL 0.4 MG CAP PO SCH (22:00)
[2023-09-09] MEDS ORDERED: LATANOPROST 0.005% OPHTH SOLN 2.5ML BOTTLE OU SCH (22:00)
[2023-09-10] MEDS ORDERED: PATIENT'S OWN MEDICATION (NON-FORMULARY) (Simvastatin [Zocor] 20 MG Tablet) PO SCH (10:00)
[2023-09-10] MEDS ORDERED: TIMOLOL 0.5% OPHTHALMIC SOL 5 ML BOTTLE OD SCH (10:00)
[2023-09-10] MEDS: ARIPiprazole 5 MG TABLET PO SCH (10:04)
[2023-09-10] MEDS: IBUPROFEN 600 MG TABLET (FP) PO PRN (16:07)
[2023-09-10] MEDS: BACLOFEN 10 MG TABLET (FP) PO SCH (21:20)
[2023-09-11] MEDS: GABAPENTIN 400 MG CAPSULE PO SCH (10:30)
[2023-09-11] MEDS ORDERED: ALBUTEROL SO4 HFA INHALER IH PRN (14:04)
[2023-09-14] MEDS: PETROLATUM, WHITE 30 GM TUBE TP SCH (12:30)
[2023-09-14] MEDS: BACLOFEN 10 MG TABLET (FP) PO SCH (13:57)
[2023-09-15] MEDS: traZODone HCL 50 MG TABLET (FP) PO SCH (21:11)
[2023-09-16] MEDS: NALTREXONE HCL 50 MG TABLET PO ONE (13:32)
[2023-09-17] MEDS: NALTREXONE HCL 50 MG TABLET PO SCH (09:46)
[2023-09-19 07:07] VITALS: RESP 17; TEMP 97.3
[2023-09-19 09:46] VITALS: BP 113/67; PULSE 90
[2023-09-19] MEDS: NALTREXONE MICROSPHERES (VIVITROL) 380 MG DISP.SYRIN IM ONE (12:52)
[2023-09-21] MEDS ORDERED: NALTREXONE MICROSPHERES (VIVITROL) 380 MG DISP.SYRIN IM ONE (06:00)
== END 2023-09-19 13:14 | disposition home or self-care (01) | DRG 895 ==
LOC: YASAS 13:36 → Y3NR 16:46 → Y3W 09-09 15:04
PROVIDERS: ADMIT Allergy & Immunology; ATTEND Psychiatry & Neurology Pain Medicine
PROC: HZ42ZZZ Group Counseling for Substance Abuse Treatment, Cognitive-Behavioral (ICD-10-PCS; principal; 2023-09-08)
DX: F10.20 Alcohol dependence, uncomplicated (principal); F14.20 Cocaine dependence, uncomplicated; F19.282 Other psychoactive substance dependence with psychoactive substance-induced sleep disorder; Z59.01 Sheltered homelessness; F17.210 Nicotine dependence, cigarettes, uncomplicated; F31.9 Bipolar disorder, unspecified; F19.24 Other psychoactive substance dependence with psychoactive substance-induced mood disorder; F43.10 Post-traumatic stress disorder, unspecified; H40.9 Unspecified glaucoma; I10 Essential (primary) hypertension; J45.909 Unspecified asthma, uncomplicated; K21.9 Gastro-esophageal reflux disease without esophagitis; E11.42 Type 2 diabetes mellitus with diabetic polyneuropathy; Z79.84 Long term (current) use of oral hypoglycemic drugs; M54.50 Low back pain, unspecified; G89.29 Other chronic pain; N40.0 Benign prostatic hyperplasia without lower urinary tract symptoms; Z91.85 Personal history of military service
CPT/HCPCS: 36415; 71046-TC-FY; 80053; 80305; 80307; 81003; 82652; 82962; 83036; 83735; 85027; 86780; 86803; 87811; 93005; 93010; J0475; J2315